=== PATIENT | male | born 1950 | race Caucasian/White ===

== ENCOUNTER 2024-04-14 11:24 | Inpatient (IN) ==
--- NOTE | 2024-04-14 12:33 | Emergency Department Note ---
Impression & Plan Metastatic cancer to brain, Weakness ED Provider Note CHIEF COMPLAINT: Weakness HISTORY OF PRESENTING ILLNESS: Patient is a pleasant 74-year-old male who arrives to the emergency department for evaluation of increased weakness in the bilateral legs, right worse than left. He also reports weakness in the right arm. He reports he recently finished chemotherapy and radiation for stage IV lung cancer. He states he has an MRI scheduled April 24 for his lumbar spine, however since the appointment where he visited to have the MRI imaging scheduled, his weakness has progressed significantly. He reports no pain. He denies headache, visual disturbance, or other neurological deficit. He denies knowledge of an exact date or time when the symptoms began. He is able to answer all questions appropriately. REVIEW OF SYSTEMS: See HPI for pertinent positives and pertinent negatives. ALLERGIES: Oxycodone, betamethasone MEDICATIONS: See below PAST MEDICAL HISTORY: Small cell lung cancer, lumbar back pain, lumbosacral facet joint syndrome PHYSICAL EXAM: VITALS: Vitals are noted on the nurse's note and reviewed by myself. Vital signs stable. GENERAL: 74-year-old male, in no acute distress, nondiaphoretic, well-developed well-nourished. SKIN: The skin was without rashes, erythema, edema, or bruising. HEAD: Normocephalic atraumatic. EARS: External auditory canals clear, tympanic membranes pearly arboleda without erythema or effusion bilaterally. EYES: Pupils equal round and reactive to light and accommodation. Conjunctivae without injection, sclerae without icterus. Extraocular movements intact. No nystagmus present. NOSE: Patent, turbinates without inflammation or discharge. No sinus tenderness. MOUTH: Mucous membranes moist. No tonsillar hypertrophy. Pharynx without erythema or exudate. Uvula midline. Airway patent. Tongue does not deviate. NECK: Supple without nuchal rigidity. No lymphadenopathy. Cervical spine is nontender. HEART: Regular rate and rhythm without murmurs gallops or rubs. LUNGS: Clear to auscultation bilaterally without wheezes, rales or rhonchi. No retractions or accessory muscle use. ABDOMEN: Positive bowel sounds x 4. Soft, nontender, without masses or organomegaly. Alcala sign negative. No guarding or rebound tenderness. MUSCULOSKELETAL: Full range of motion all joints without pain. Diminished sensation, right arm, right leg to dull and sharp. Automotive Teacher strength 4/5, right arm, radial pulse intact. Dorsiflexion, plantarflexion strength 4/5, right foot. DP pulse intact. NEURO: Patient was alert and oriented to person place and time. No focal neurological deficits. DIFFERENTIAL DIAGNOSIS: Infection, dehydration, metabolic abnormality, hypo/hyperglycemia, electrolyte disturbance, anemia, hypoxia, cardiac sources, intracerebral event, toxicologic, neurologic, as well as other pathologies. HISTORY FROM INDEPENDENT HISTORIAN: at bedside, secondary historian. MEDICATIONS GIVEN: Lorazepam IV, dexamethasone IV 6 mg. MONITOR: Continuous media monitor: Order was placed for continuous media monitor. Patient was placed on the media monitor and continuous pulse ox. Patient was noted to be in normal sinus rhythm at an initial rate of 88 bpm per my interpretation. EKG: EKG was interpreted by myself as normal sinus rhythm at a rate of 78 bpm, with no ST elevation, depression, or ectopy. Previous for comparison from November 2023 shows no significant change. INTERPRETATION OF LABS: I interpreted the labs with full lab results as below in the lab section of this note. Pertinent lab results discussed in the MDM section below. INTERPRETATION OF IMAGING: Imaging studies were interpreted by myself and read by radiology as per the imaging section of this note. CONSULTATIONS: Dr. Travis from heme-onc, recommended admission with every 6 hour IV dexamethasone administration, and evaluation by Dr. Munoz, and Dr. Massey from radiation oncology. MDM SUMMARY: The patient is a 74-year-old male who arrives to the emergency department for evaluation of the above-stated complaint. A saline lock was established, stroke workup evaluation was performed including lab work, CT imaging of the brain, and CTA imaging of the brain and neck. Lab work shows leukopenia 3.47, with a stable anemia. PT/INR/PTT within normal limits. CMP shows elevated alkaline phosphatase at 144, with no other significant abnormalities. Troponin 3.2. CTA imaging of the brain shows no aneurysm or stenosis of the major intracranial or cervical arteries. CT imaging of the head shows an intracranial mass seen about the high left frontal parafalcine region associated with surrounding vasogenic edema consistent with metastasis. Additional more ill-defined rounded areas in the cerebellar hemispheres bilaterally are noted. I spoke with Dr. Travis from heme-onc who recommended MRI imaging with and without contrast, every 6 hour IV dexamethasone, and admission to the hospital for evaluation by Dr. Ajala, and radiation oncology in the morning. MRI imaging was obtained showing the high left frontal parafalcine as well as the bilateral cerebellar masses again demonstrating rim enhancement and reactive vasogenic edema compatible with metastasis. Additional scattered smaller rim-enhancing lesions throughout the supratentorial brain. Patient was provided initial dose of IV dexamethasone here in the emergency department. Case management was contacted regarding admission, and facilitated contact with Dr. Simmons [facility]. Dr. Simmons evaluated the patient, and agreed to accept the patient under his care. Please refer to his documentation for further patient workup and care. DIAGNOSIS: Intracranial mass, metastatic disease. The patient's case was discussed with Dr. Taveras, who agreed with my evaluation and treatment plan. The chart was completed utilizing [employer] voice recognition software. Grammatical errors, random word insertions, pronoun errors, and incomplete sentences are an occasional consequence of this system due to software limitations, ambient noise, and hardware issues. Any formal questions or concerns about the content, text, or information contained within the body of this dictation should be directly addressed to the provider for clarification. Past Med/Surg History Problem List (Updated 04/14/24 @ 19:03 by FRANCINE Treviño) Weakness (Acute) Metastatic cancer to brain (Acute) Lumbosacral facet joint syndrome Lumbar back pain Small cell lung cancer (Chronic 10/24/23) Penile anomaly Medical History Hypertension History of pneumonia 09/28/23 > rx'd inhalers, abx, prednisone Spinal stenosis Peripheral neuropathy Hyperlipidemia Diabetes mellitus Hx of colonic polyps Mass of right lung Surgical History History of cataract surgery Left eye Hx of colonoscopy with polypectomy History of tonsillectomy History of lumbar surgery (2018) L5-S1 Family History Mother , 101 Diabetes Natural with unknown cause Father , in his 80s Stroke Myocardial infarction Diabetes Brother No problems noted. Brother No problems noted. Brother Overdose Son No problems noted. Son No problems noted. 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 How many Children do You have: 2 Other Information That Helps Us Care for You: No Feels Safe at Home: Yes Safety Concerns: Feels Safe At This Time Diet: regular caffeine: Yes (1 cup/day) during the past year weight has: remained stable Assistive Devices: Glasses and Walker Allergies Allergies Allergy/AdvReac Type Severity Reaction Status Date / Time oxycodone AdvReac Intermediate Syncope Verified 04/14/24 16:37 betamethasone AdvReac Mild Lower Verified 04/14/24 16:37 extremity numbness/pain Home Meds Home Medications Medication Instructions Recorded Confirmed cholecalciferol (vitamin D3) 125 125 mcg PO .weekly 10/04/23 04/14/24 mcg (5,000 unit) capsule sitagliptin phosphate 100 mg 100 mg PO QAM 10/04/23 04/14/24 tablet (Januvia) ascorbate calcium (vitamin C) 500 500 mg PO QAM 10/10/23 04/14/24 mg tablet gabapentin 600 mg tablet 1,200 mg PO HS 10/10/23 04/14/24 gabapentin 600 mg tablet 600 mg PO QAM 10/10/23 04/14/24 empagliflozin 10 mg tablet 10 mg PO .MWF 01/30/24 04/14/24 (Jardiance) lisinopril 5 mg tablet 5 mg PO QAM 04/02/24 04/14/24 benzonatate 100 mg capsule 100 mg PO TID PRN Cough 04/14/24 04/14/24 glipizide 5 mg tablet, extended 5 mg PO QAM 04/14/24 04/14/24 release 24 hr Previous Rx's Medication Instructions Recorded lorazepam 1 mg tablet 1 mg PO DAILY PRN anxiety #2 tabs 04/02/24 Results & Data (ED) Vital Signs Vital Signs - 24 hr 04/14/24 11:37 04/14/24 12:00 04/14/24 13:00 Temperature 36.3 C L Temperature Source Temporal Artery Scan Pulse Rate 108 H Pulse Rate [Finger] 88 77 Respiratory Rate 18 17 17 Respiratory Effort / Characteristics Non-Labored Spontaneous Non-Labored Spontaneous Non-Labored Spontaneous Respiratory Depth Normal Normal Normal Respiratory Pattern Regular Regular Regular Blood Pressure 118/76 Blood Pressure [Right Arm] 125/76 122/64 Blood Pressure Mean 90 Blood Pressure Mean [Right Arm] 92 83 Pulse Oximetry 97 96 95 Oxygen Delivery Method Room Air Room Air Room Air Sepsis Recent Fever Within 48 Hours No Sepsis New/Unexplained Change in Mental Status N/A Sepsis Action Taken by Nursing No Action Required Home Medications Current Medication List: was personally reviewed by me Laboratory Data Attestation: I reviewed the patient's lab results. 04/14/24 12:48 04/14/24 12:48 Lab Results 04/14/24 04/14/24 Range/Units 12:48 14:41 WBC 3.47 L (4.8-10.8) K/ul RBC 4.27 L (4.70-6.10) M/uL Hgb 12.5 L (14.0-18.0) g/dl Hct 37.5 L (42.0-52.0) % MCV 87.8 (80.0-100.0) fL MCH 29.3 (25.0-34.0) pg MCHC 33.3 (32.0-36.0) g/dL RDW Std Deviation 47.9 H (36.4-46.3) fL RDW Coeff of Angela 14.9 H (11.5-14.5) % Plt Count 87 L (130-400) K/uL MPV 11.7 (9.4-12.4) fL Immature Gran % (Auto) 1.2 % Neut % (Auto) 65.1 % Lymph % (Auto) 13.3 % Bacon % (Auto) 19.0 % Eos % (Auto) 1.4 % Baso % (Auto) 0.0 % Neut # (Auto) 2.26 (1.40-6.50) K/uL Lymph # (Auto) 0.46 L (1.20-3.40) K/uL Bacon # (Auto) 0.66 H (0.11-0.59) K/uL Eos # (Auto) 0.05 (0.00-0.50) K/uL Baso # (Auto) 0.00 (0.00-0.20) K/uL Immature Gran # (Auto) 0.04 (0.01-0.20) K/uL PT Cancelled 10.7 INR Cancelled 1.0 APTT Cancelled 23 PTT Ratio Cancelled 0.9 Sodium 137 (136-145) mmol/L Potassium 4.0 (3.5-5.1) mmol/L Chloride 104 (98-107) mmol/L Carbon Dioxide 27 (21-32) mmol/L Anion Gap 6 (3-11) BUN 15 (6-23) mg/dl Creatinine 0.72 (0.6-1.4) mg/dl Est Cr Clr Drug Dosing 100.6 ml/min eGFR 97.07 BUN/Creatinine Ratio 20.8 H (10-20) Glucose 138 H (70-99(Fasting)) mg/dl Calcium 9.7 (8.6-10.3) mg/dl Magnesium 1.8 (1.7-2.4) mg/dl Total Bilirubin 0.5 (0.2-1.0) mg/dl AST 18 (13-39) U/L ALT 21 (7-52) U/L Alkaline Phosphatase 144 H (34-104) U/L Troponin I High Sens 3.2 (0-20) pg/ml Total Protein 7.0 (6.0-8.3) gm/dl Albumin 4.3 (3.4-5.0) gm/dl Globulin 2.7 (2.5-4.0) gm/dl Albumin/Globulin Ratio 1.6 (0.9-2) Administered Medications Insulin Aspart (Insulin Aspart Per Unit Charge) 0 units SC ACHS KAMLESH Stop: 05/14/24 17:59 Last Admin: 04/14/24 18:38 Dose: Not Given Documented By: MK Discontinued Medications Dexamethasone Sodium Phosphate (DexamethasonePf 10 Mg/Ml Vial) 6 mg IV NOW ONE Stop: 04/14/24 14:23 Last Admin: 04/14/24 14:43 Dose: 6 mg Documented By: KLS Gadobutrol (Gadobutrol 10ml Vial) 7.5 ml IV ONCE ONE Stop: 04/14/24 16:07 Last Admin: 04/14/24 16:06 Dose: 7.5 ml Documented By: WAI Ioversol (Optiray 320 125ml) 115 ml IV ONCE ONE Stop: 04/14/24 14:09 Last Admin: 04/14/24 14:10 Dose: 115 ml Documented By: LENIN Lorazepam (Lorazepam 1 Mg/1 Ml Syr Ed Inj Use) 0.25 mg IV ONE STA Stop: 04/14/24 13:33 Last Admin: 04/14/24 13:41 Dose: 0.25 mg Documented By: JORDYN Lorazepam (Lorazepam 2 Mg/1 Ml Vial) 0.5 mg IV NOW STA Stop: 04/14/24 15:04 Last Admin: 04/14/24 16:09 Dose: Not Given Documented By: Lorazepam (Lorazepam 1 Mg/1 Ml Syr Ed Inj Use) 1 mg IV ONE STA Stop: 04/14/24 15:38 Last Admin: 04/14/24 15:43 Dose: 1 mg Documented By: Imaging Data Attestation: I personally reviewed and interpreted this imaging study as follows: Radiologist's Impression: Head CT 04/14/24 12:[address] without contrast CT angiogram of the neck CT angiogram of the brain with contrast Provided History: Neuro deficit. Lung cancer Comparison: MRI from 01/20/2024 Technique: HEAD CT: Using multidetector thin collimation helical acquisition technique, axial, coronal and sagittal CT images from the skull base to the vertex were obtained without intravenous contrast. HEAD and NECK CTA: During rapid bolus intravenous injection of nonionic contrast material, axial images were obtained using thin collimation multidetector helical technique from the base of the neck through the of vertex of the head. This CT angiogram data was reconstructed at thin intervals with mild overlap. 3D reconstructions were obtained. The axial source images, multiplanar reformations, 3D reconstructions in both maximum intensity projection display and volume rendered models were reviewed. Dose reduction techniques were achieved by using automatic exposure control and/or adjustment of mA and/or kV according to patient size and/or use of iterative reconstruction technique. Findings: Head CT: There is a new, rounded high density mass that appears based on the falx and in the high left frontal lobe measuring 2.2 x 2.0 cm, associated surrounding vasogenic edema. There is subtle rounded areas bilaterally in the cerebellar hemispheres, as seen on series 8 image 15, measuring 1.9 cm, and in the left cerebellar hemisphere on image 17 measuring 1.1 cm. There is no intracranial hemorrhage, mass effect, or midline shift. Arboleda/white matter differentiation in both cerebral hemispheres is preserved. Ventricles are proportionate to the cerebral sulci. Head CTA demonstrates no aneurysm or stenosis of the major intracranial arteries. Neck CTA demonstrates no stenosis of the major cervical arteries. Prominent calcifications at the carotid bulbs and proximal ICA bilaterally without hemodynamically significant stenosis appreciated. The origins of the great vessels from the aortic arch are patent. The normal distal right internal carotid artery measures 5 mm. The normal distal left internal carotid artery measures 5 mm. No mass is noted within the visualized portions of the cervical soft tissues or lung apices. Impression: 1. Head CTA demonstrates no aneurysm or stenosis of the major intracranial arteries, 2. Neck CTA demonstrates no stenosis of the major cervical arteries. 3. Intracranial mass seen about the high left frontal parafalcine region, associated with surrounding vasogenic edema, consistent with metastasis. There are also more ill-defined rounded areas in the cerebellar hemispheres bilaterally suspicious for metastatic disease. Findings may be further evaluated with MRI. The study was analyzed using artificial intelligence software for large vessel occlusion detection. Electronically signed by Markell Silverio 04-14-2024 2:25 PM Head CTA 04/14/24 12:[address] without contrast CT angiogram of the neck CT angiogram of the brain with contrast Provided History: Neuro deficit. Lung cancer Comparison: MRI from 01/20/2024 Technique: HEAD CT: Using multidetector thin collimation helical acquisition technique, axial, coronal and sagittal CT images from the skull base to the vertex were obtained without intravenous contrast. HEAD and NECK CTA: During rapid bolus intravenous injection of nonionic contrast material, axial images were obtained using thin collimation multidetector helical technique from the base of the neck through the of vertex of the head. This CT angiogram data was reconstructed at thin intervals with mild overlap. 3D reconstructions were obtained. The axial source images, multiplanar reformations, 3D reconstructions in both maximum intensity projection display and volume rendered models were reviewed. Dose reduction techniques were achieved by using automatic exposure control and/or adjustment of mA and/or kV according to patient size and/or use of iterative reconstruction technique. Findings: Head CT: There is a new, rounded high density mass that appears based on the falx and in the high left frontal lobe measuring 2.2 x 2.0 cm, associated surrounding vasogenic edema. There is subtle rounded areas bilaterally in the cerebellar hemispheres, as seen on series 8 image 15, measuring 1.9 cm, and in the left cerebellar hemisphere on image 17 measuring 1.1 cm. There is no intracranial hemorrhage, mass effect, or midline shift. Arboleda/white matter differentiation in both cerebral hemispheres is preserved. Ventricles are proportionate to the cerebral sulci. Head CTA demonstrates no aneurysm or stenosis of the major intracranial arteries. Neck CTA demonstrates no stenosis of the major cervical arteries. Prominent calcifications at the carotid bulbs and proximal ICA bilaterally without hemodynamically significant stenosis appreciated. The origins of the great vessels from the aortic arch are patent. The normal distal right internal carotid artery measures 5 mm. The normal distal left internal carotid artery measures 5 mm. No mass is noted within the visualized portions of the cervical soft tissues or lung apices. Impression: 1. Head CTA demonstrates no aneurysm or stenosis of the major intracranial arteries, 2. Neck CTA demonstrates no stenosis of the major cervical arteries. 3. Intracranial mass seen about the high left frontal parafalcine region, associated with surrounding vasogenic edema, consistent with metastasis. There are also more ill-defined rounded areas in the cerebellar hemispheres bilaterally suspicious for metastatic disease. Findings may be further evaluated with MRI. The study was analyzed using artificial intelligence software for large vessel occlusion detection. Electronically signed by Markell Silverio 04-14-2024 2:25 PM Neck CTA 04/14/24 12:[address] without contrast CT angiogram of the neck CT angiogram of the brain with contrast Provided History: Neuro deficit. Lung cancer Comparison: MRI from 01/20/2024 Technique: HEAD CT: Using multidetector thin collimation helical acquisition technique, axial, coronal and sagittal CT images from the skull base to the vertex were obtained without intravenous contrast. HEAD and NECK CTA: During rapid bolus intravenous injection of nonionic contrast material, axial images were obtained using thin collimation multidetector helical technique from the base of the neck through the of vertex of the head. This CT angiogram data was reconstructed at thin intervals with mild overlap. 3D reconstructions were obtained. The axial source images, multiplanar reformations, 3D reconstructions in both maximum intensity projection display and volume rendered models were reviewed. Dose reduction techniques were achieved by using automatic exposure control and/or adjustment of mA and/or kV according to patient size and/or use of iterative reconstruction technique. Findings: Head CT: There is a new, rounded high density mass that appears based on the falx and in the high left frontal lobe measuring 2.2 x 2.0 cm, associated surrounding vasogenic edema. There is subtle rounded areas bilaterally in the cerebellar hemispheres, as seen on series 8 image 15, measuring 1.9 cm, and in the left cerebellar hemisphere on image 17 measuring 1.1 cm. There is no intracranial hemorrhage, mass effect, or midline shift. Arboleda/white matter differentiation in both cerebral hemispheres is preserved. Ventricles are proportionate to the cerebral sulci. Head CTA demonstrates no aneurysm or stenosis of the major intracranial arteries. Neck CTA demonstrates no stenosis of the major cervical arteries. Prominent calcifications at the carotid bulbs and proximal ICA bilaterally without hemodynamically significant stenosis appreciated. The origins of the great vessels from the aortic arch are patent. The normal distal right internal carotid artery measures 5 mm. The normal distal left internal carotid artery measures 5 mm. No mass is noted within the visualized portions of the cervical soft tissues or lung apices. Impression: 1. Head CTA demonstrates no aneurysm or stenosis of the major intracranial arteries, 2. Neck CTA demonstrates no stenosis of the major cervical arteries. 3. Intracranial mass seen about the high left frontal parafalcine region, associated with surrounding vasogenic edema, consistent with metastasis. There are also more ill-defined rounded areas in the cerebellar hemispheres bilaterally suspicious for metastatic disease. Findings may be further evaluated with MRI. The study was analyzed using artificial intelligence software for large vessel occlusion detection. Electronically signed by Markell Silverio 04-14-2024 2:25 PM Brain MRI 04/14/24 14:35 MRI of the brain performed with and without IV contrast History: Intracranial mass Comparison: Same-day CT Technique: Multiplanar T1 weighted, axial T2/FLAIR, and susceptibility images were obtained without intravenous contrast. Following intravenous gadolinium based contrast administration, axial T2 weighted, diffusion, and T1-weighted images were obtained. Findings: No evidence for intracranial mass lesion, mass-effect, midline shift, or abnormal extra-axial fluid collection. Redemonstrated is of the high left frontal parafalcine mass, that measures approximately 2.2 cm in diameter, demonstrating rim enhancement and surrounding vasogenic edema. The bilateral cerebellar lesions as described on CT, are also seen with thin rim enhancement, on the right measuring up to 2.3 cm, and the left measuring 1.1 cm, with surrounding vasogenic edema. Throughout the remainder of the supratentorial brain, there are additional, smaller lesions which were not well-seen on head CT. There are an additional, approximately 7 smaller lesions throughout the supratentorial brain, including the left temporal lobe measuring 14 mm, the left basal ganglia measuring 9 mm, in the high right parietal region measuring 8 mm. The orbits are grossly unremarkable. There is moderate cerebral atrophy. No abnormally reduced diffusion or evidence for acute infarct. Normal intravascular flow voids. Impression: The high left frontal parafalcine, as well as the bilateral cerebellar masses, are again seen, demonstrating rim enhancement and reactive vasogenic edema, compatible with metastasis. There are additional, scattered smaller rim-enhancing lesions throughout the supratentorial brain, as above. Electronically signed by Markell Silverio 04-14-2024 4:27 PM Discharge Plan Visit Data Chief Complaint: Back Injury/Pain Stated Complaint: BACK, BOTH LEGS AND RIGHT ARM GOING NUMB ED Provider: Nacho Taveras ED Midlevel Provider: Chela Blue Discharge Problem: Metastatic cancer to brain, Weakness Patient Disposition: Admitted As Inpatient Discharge Instructions Interventions: ED Discharge Assessment Last Done: 04/14/24 17:13
[2024-04-14 13:09] LABS: Eosinophils # (auto) 0.05 K/uL (0.00-0.50); Eosinophils % (auto) 1.4 %; Hematocrit (blood only) 37.5 % (42.0-52.0); Hemoglobin 12.5 g/dl (14.0-18.0); Immature Granulocytes # (auto) 0.04 K/uL (0.01-0.20); Immature Granulocytes % (auto) 1.2 %; Lymphocytes # (auto) 0.46 K/uL (1.20-3.40); Lymphocytes % (auto) 13.3 %; Mean Corpuscular Hemoglobin 29.3 pg (25.0-34.0); Mean Corpuscular Hgb Conc 33.3 g/dL (32.0-36.0); Mean Corpuscular Volume 87.8 fL (80.0-100.0); Mean Platelet Volume 11.7 fL (9.4-12.4); Monocytes # (auto) 0.66 K/uL (0.11-0.59); Neutrophils # (auto) 2.26 K/uL (1.40-6.50); Neutrophils % (auto) 65.1 %; Platelet Count 87 K/uL (130-400); RDW Coefficient of Variation 14.9 % (11.5-14.5); RDW Standard Deviation 47.9 fL (36.4-46.3); Red Blood Count 4.27 M/uL (4.70-6.10); White Blood Count 3.47 K/ul (4.8-10.8)
[2024-04-14 13:23] LABS: Albumin Globulin Ratio 1.6 (0.9-2); Albumin Level 4.3 gm/dl (3.4-5.0); BUN Creatinine Ratio 20.8 (10-20); Bilirubin,Total 0.5 mg/dl (0.2-1.0); Calcium 9.7 mg/dl (8.6-10.3); Creatinine Clr Calc Pharmacy 100.6 ml/min; Globulin 2.7 gm/dl (2.5-4.0); Magnesium 1.8 mg/dl (1.7-2.4)
[2024-04-14 13:30] LABS: Troponin I High Sensitivity 3.2 pg/ml (0-20)
[2024-04-14] MEDS: LORazepam 1 MG/1 ML SYR ED Inj Use IV STA ×2 (13:41→15:43)
[2024-04-14] MEDS: OPTIRAY 320 125ml IV ONE (14:10)
--- NOTE | 2024-04-14 14:25 | CT Scan Report ---
Head CT without contrast CT angiogram of the neck CT angiogram of the brain with contrast Provided History: Neuro deficit. Lung cancer Comparison: MRI from 01/20/2024 Technique: HEAD CT: Using multidetector thin collimation helical acquisition technique, axial, coronal and sagittal CT images from the skull base to the vertex were obtained without intravenous contrast. HEAD and NECK CTA: During rapid bolus intravenous injection of nonionic contrast material, axial images were obtained using thin collimation multidetector helical technique from the base of the neck through the of vertex of the head. This CT angiogram data was reconstructed at thin intervals with mild overlap. 3D reconstructions were obtained. The axial source images, multiplanar reformations, 3D reconstructions in both maximum intensity projection display and volume rendered models were reviewed. Dose reduction techniques were achieved by using automatic exposure control and/or adjustment of mA and/or kV according to patient size and/or use of iterative reconstruction technique. Findings: Head CT: There is a new, rounded high density mass that appears based on the falx and in the high left frontal lobe measuring 2.2 x 2.0 cm, associated surrounding vasogenic edema. There is subtle rounded areas bilaterally in the cerebellar hemispheres, as seen on series 8 image 15, measuring 1.9 cm, and in the left cerebellar hemisphere on image 17 measuring 1.1 cm. There is no intracranial hemorrhage, mass effect, or midline shift. Arboleda/white matter differentiation in both cerebral hemispheres is preserved. Ventricles are proportionate to the cerebral sulci. Head CTA demonstrates no aneurysm or stenosis of the major intracranial arteries. Neck CTA demonstrates no stenosis of the major cervical arteries. Prominent calcifications at the carotid bulbs and proximal ICA bilaterally without hemodynamically significant stenosis appreciated. The origins of the great vessels from the aortic arch are patent. The normal distal right internal carotid artery measures 5 mm. The normal distal left internal carotid artery measures 5 mm. No mass is noted within the visualized portions of the cervical soft tissues or lung apices. Impression: 1. Head CTA demonstrates no aneurysm or stenosis of the major intracranial arteries, 2. Neck CTA demonstrates no stenosis of the major cervical arteries. 3. Intracranial mass seen about the high left frontal parafalcine region, associated with surrounding vasogenic edema, consistent with metastasis. There are also more ill-defined rounded areas in the cerebellar hemispheres bilaterally suspicious for metastatic disease. Findings may be further evaluated with MRI. The study was analyzed using artificial intelligence software for large vessel occlusion detection. Electronically signed by Markell Silverio 04-14-2024 2:25 PM
[2024-04-14] MEDS: dexAMETHasone**PF** 10 MG/ML VIAL IV ONE (14:43)
[2024-04-14 15:11] LABS: Partial Thromboplastin Ratio 0.9; Partial Thromboplastin Time 23 Seconds (21-31); Prothrombin Time 10.7 Seconds (9.0-12.0)
--- NOTE | 2024-04-14 15:37 | History & Physical Report ---
Date of Service April 14, 2024 Assessment & Plan (1) Small cell lung cancer: (2) Metastatic cancer to brain: Plan This is a 74 year old male with past medical history of small cell lung cancer, back pain who presented to the ED on 04/14 for weakness. #SCLC w/ mets to brain Recently completed chemotherapy/radiation on 03/04/2024. CBC w/ pancytopenia, appears chronic, secondary to cancer. CMP stable; PT/INR stable. Head CTA/Neck CTA negative for stenosis Head CT: intracranial mass seen about high left frontal parafalcine region, associated w/ surrounding vasogenic edema, consistent with metastasis. Also ill defined rounded areas in cerebellar hemispheres b/l suspcious for metastatic disease. Rec MRI Brain MRI pending Consider MRI of spine, defer to oncology at this time. Oncology and radiation oncology consulted, appreciate recommendations Dexamethasone 6mg IV q 6 hours per oncology Continue home inhalers PT/OT consulted appreciate recommendations. #Type 2 Diabetes On Jardiance, Glipizide, and Januvia outpatient - hold while inpatient A1c 2/7 - 6.8% Switch to sliding scale coverage while inpatient, adjust as necessary Continue Gabapentin for neuropathy Chronic conditions: HTN: Lisinopril Mental Health: Lorazepam prn Code status: DNR/DNI DVT prophylaxis: chemical held in setting of thrombocytopenia. SCD's Case discussed w/ Dr. Simmons and Dr. Travis at time of admission History of Present Illness Primary Care Provider: Adonis Amaya This is a 74 year old male with past medical history of small cell lung cancer, back pain who presented to the ED on 04/14 for weakness. Patient seen and examined w/ at bedside. Patient reports increased weakness of his b/l legs, R>L and right arm weakness. This has been ongoing for a few weeks but has gotten recently worse. He was supposed to get an MRI of his brain and spine outpatient in the upcoming week. He denies any abdominal pain. Denies any changes in speech, vision, hearing. Denies chest pain, shortness of breath, or GI complaints. He denies any headaches. He recently completed treatment for stage IV lung cancer outpatient. While in the ED, patient underwent a head neck CT/CTA that was revealing for an intracranial mass w/ vasogenic edema. Brain MRI is currently pending. Oncology was contacted by the ED in which Dr. Travis recommended IV Dexamethasone 6mg q6h. Oncology/radiation oncology consults are also pending. Code status discussed w/ patient and he confirmed he is a DNR/DNI. Allergies Allergy/AdvReac Type Severity Reaction Status Date / Time oxycodone AdvReac Intermediate Syncope Verified 04/14/24 16:37 betamethasone AdvReac Mild Lower Verified 04/14/24 16:37 extremity numbness/pain Home Medications Medication Instructions Recorded Confirmed Type cholecalciferol (vitamin D3) 125 125 mcg PO .weekly 10/04/23 04/14/24 History mcg (5,000 unit) capsule sitagliptin phosphate 100 mg 100 mg PO QAM 10/04/23 04/14/24 History tablet (Januvia) ascorbate calcium (vitamin C) 500 500 mg PO QAM 10/10/23 04/14/24 History mg tablet gabapentin 600 mg tablet 1,200 mg PO HS 10/10/23 04/14/24 History gabapentin 600 mg tablet 600 mg PO QAM 10/10/23 04/14/24 History empagliflozin 10 mg tablet 10 mg PO .MWF 01/30/24 04/14/24 History (Jardiance) lisinopril 5 mg tablet 5 mg PO QAM 04/02/24 04/14/24 History lorazepam 1 mg tablet 1 mg PO DAILY PRN anxiety #2 tabs 04/02/24 04/14/24 Rx benzonatate 100 mg capsule 100 mg PO TID PRN Cough 04/14/24 04/14/24 History glipizide 5 mg tablet, extended 5 mg PO QAM 04/14/24 04/14/24 History release 24 hr dexamethasone 4 mg tablet 4 mg PO BID #20 tabs 04/15/24 Rx lorazepam 1 mg tablet 1 mg PO ONCE #30 tabs 04/15/24 Rx memantine 5 mg tablet 5 mg PO DAILY #70 tabs 04/15/24 Rx Past Med/Surg History Problem List (Updated 04/14/24 @ 19:03 by FRANCINE Treviño) Weakness (Acute) Metastatic cancer to brain (Acute) Lumbosacral facet joint syndrome Lumbar back pain Small cell lung cancer (Chronic 10/24/23) Penile anomaly Medical History Hypertension History of pneumonia 09/28/23 > rx'd inhalers, abx, prednisone Spinal stenosis Peripheral neuropathy Hyperlipidemia Diabetes mellitus Hx of colonic polyps Mass of right lung Surgical History History of cataract surgery Left eye Hx of colonoscopy with polypectomy History of tonsillectomy History of lumbar surgery (2018) L5-S1 Family History Mother , 101 Diabetes Natural with unknown cause Father , in his 80s Stroke Myocardial infarction Diabetes Brother No problems noted. Brother No problems noted. Brother Overdose Son No problems noted. Son No problems noted. 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 3/5 strength in right upper extremity, 5 /5 strength left upper extremity Psychiatric: A+Ox3, euthymic affect Results & Data Results & Data Vital Signs (Past 12 Hours) Vital Signs Temp Pulse Pulse Resp BP BP Pulse Ox 04/14/24 13:00 77 17 122/64 95 04/14/24 12:00 88 17 125/76 96 04/14/24 11:37 36.3 C L 108 H 18 118/76 97 O2 Del Method 04/14/24 13:00 Room Air 04/14/24 12:00 Room Air 04/14/24 11:37 Room Air Code Status & VTE Plan VTE Prophylaxis Plan VTE Prophylaxis will be ordered: Yes Supervising Physician Co-Signing Physician Notes I personally saw and examined the patient. I independently reviewed the labs, EKG, imaging, problem list, medication list, past medical history and family history. I verified all nelson points and agree with Vero Moses PA-C with the following exceptions and/or additions: 74-year-old male presents to the ER with ambulatory dysfunction. CT head unfortunately concerning for an intracranial mass. Patient with a history of metastatic small cell lung cancer. O/E HS RRR, no murmurs, Chest CTAB, Abdo SNT, decreased co-ordination of lower extremities with right lower extremity weakness A/P Metastatic small cell cancer with brain metastatic disease - patient was significantly ambulatory dysfunction therefore being admitted for PT OT evaluations, dexamethasone and radiation oncology consult PG Care Time/CCT Total # of Minutes Spent Total Time Spent with Patient: Total time spent is greater than 50% in coordination of care (as documented) at patient's floor/unit and/or counseling patient: Coding Level of Care Code 47939 INT INP/OBS CARE 3/75MIN Diagnoses Small cell carcinoma of lower lobe of right lung C34.90 Laterality: unspecified laterality Lung location: unspecified part of lung Metastatic cancer to brain C79.31 (1) Small cell lung cancer Laterality: unspecified laterality Lung location: unspecified part of lung Qualified Code(s): C34.90 - Malignant neoplasm of unspecified part of unspecified bronchus or lung
[2024-04-14] MEDS: GADOBUTROL 10ML VIAL IV ONE (16:06)
[2024-04-14] MEDS: LORazepam 2 MG/1 ML VIAL IV STA (16:09)
--- NOTE | 2024-04-14 16:27 | Magnetic Resonance Report ---
MRI of the brain performed with and without IV contrast History: Intracranial mass Comparison: Same-day CT Technique: Multiplanar T1 weighted, axial T2/FLAIR, and susceptibility images were obtained without intravenous contrast. Following intravenous gadolinium based contrast administration, axial T2 weighted, diffusion, and T1-weighted images were obtained. Findings: No evidence for intracranial mass lesion, mass-effect, midline shift, or abnormal extra-axial fluid collection. Redemonstrated is of the high left frontal parafalcine mass, that measures approximately 2.2 cm in diameter, demonstrating rim enhancement and surrounding vasogenic edema. The bilateral cerebellar lesions as described on CT, are also seen with thin rim enhancement, on the right measuring up to 2.3 cm, and the left measuring 1.1 cm, with surrounding vasogenic edema. Throughout the remainder of the supratentorial brain, there are additional, smaller lesions which were not well-seen on head CT. There are an additional, approximately 7 smaller lesions throughout the supratentorial brain, including the left temporal lobe measuring 14 mm, the left basal ganglia measuring 9 mm, in the high right parietal region measuring 8 mm. The orbits are grossly unremarkable. There is moderate cerebral atrophy. No abnormally reduced diffusion or evidence for acute infarct. Normal intravascular flow voids. Impression: The high left frontal parafalcine, as well as the bilateral cerebellar masses, are again seen, demonstrating rim enhancement and reactive vasogenic edema, compatible with metastasis. There are additional, scattered smaller rim-enhancing lesions throughout the supratentorial brain, as above. Electronically signed by Markell Silverio 04-14-2024 4:27 PM
[2024-04-14] MEDS: INSULIN ASPART PER UNIT CHARGE SC SCH (18:38)
[2024-04-14] MEDS ORDERED: dexAMETHasone**PF** 10 MG/ML VIAL IV SCH (20:30)
[2024-04-14] MEDS: dexAMETHasone 6 MG in SYRINGE 0 ML IV SCH (20:37)
[2024-04-14] MEDS: GABAPENTIN 600 MG TAB PO SCH (20:37)
[2024-04-14] MEDS ORDERED: PHARMACY GLYCEMIC MGMT CONSULT PRN (20:45)
[2024-04-14] MEDS ORDERED: CARBOHYDRATES FOR HYPOGLYCEMIA PO PRN (20:46)
[2024-04-14] MEDS ORDERED: GLUCOSE 40% GEL 15 GM TUBE PO PRN (20:46)
[2024-04-14] MEDS ORDERED: DEXTROSE 50% 50 ML SYRINGE IV PRN (20:46)
[2024-04-14] MEDS ORDERED: GLUCAGON FOR INJ 1 MG VIAL SQ PRN (20:46)
[2024-04-14] MEDS ORDERED: GLUCOSE 10 TAB/TUBE PO PRN (20:46)
[2024-04-14] MEDS ORDERED: EMPAGLIFLOZIN 10 MG TAB PO SCH (21:00)
[2024-04-14] MEDS: LANTUS PER UNIT CHARGE SC ONE (21:33)
[2024-04-14] MEDS: LORazepam 1 MG TAB PO PRN (21:35)
[2024-04-15] MEDS: INSULIN ASPART PER UNIT CHARGE SC SCH (00:12)
--- NOTE | 2024-04-15 08:22 | Oncology Consultation ---
Date of Consultation April 15, 2024 Assessment & Plan (1) Small cell lung cancer: (2) Metastatic cancer to brain: Plan -Agree with evaluation by radiation oncology to discuss whole brain radiation treatment -Can discharge home on dexamethasone 4 mg p.o. twice daily -Scheduled for PET/CT on 04/17/2024. If this shows disease progression, will refer to [facility] [place] for consideration of tarlatamab. History of Present Illness Reason for Consultation: Metastatic disease Attending Physician: Han Simmons MD History of Present Illness Pleasant 74-year-old gentleman with history of extensive stage small cell lung cancer for which he is s/p 4 cycles of chemoimmunotherapy treatment with carboplatin, etoposide and atezolizumab completed on 01/12/2024 followed by maintenance atezolizumab started on 02/07/2024 and consolidation RT to the chest completed on 03/08/2024. Presented to the ER with bilateral lower extremity weakness. CT head revealed intracranial mass seen around hide left frontal parafalcine region associated with vasogenic edema, ill-defined rounded areas in cerebellar hemispheres bilaterally suspicious for metastatic disease. Brain MRI on 04/14/2024 showed high left frontal parafalcine, as well a the bilateral cerebellar masses demonstrating rim enhancement and reactive vasogenic edema, compatible with metastasis, additional, scattered smaller rim-enhancing lesions throughout the supratentorial brain. He was started on high-dose steroids and he indicates that symptoms have improved ever since then. Of note, he had brain MRI around December, which was negative for metastasis and was scheduled for repeat brain MRI on 04/24/2024 prior to presentation Allergies Allergy/AdvReac Type Severity Reaction Status Date / Time oxycodone AdvReac Intermediate Syncope Verified 04/14/24 16:37 betamethasone AdvReac Mild Lower Verified 04/14/24 16:37 extremity numbness/pain Home Medications Medication Instructions Recorded Confirmed Type cholecalciferol (vitamin D3) 125 125 mcg PO .weekly 10/04/23 04/14/24 History mcg (5,000 unit) capsule sitagliptin phosphate 100 mg 100 mg PO QAM 10/04/23 04/14/24 History tablet (Januvia) ascorbate calcium (vitamin C) 500 500 mg PO QAM 10/10/23 04/14/24 History mg tablet gabapentin 600 mg tablet 1,200 mg PO HS 10/10/23 04/14/24 History gabapentin 600 mg tablet 600 mg PO QAM 10/10/23 04/14/24 History empagliflozin 10 mg tablet 10 mg PO .MWF 01/30/24 04/14/24 History (Jardiance) lisinopril 5 mg tablet 5 mg PO QAM 04/02/24 04/14/24 History lorazepam 1 mg tablet 1 mg PO DAILY PRN anxiety #2 tabs 04/02/24 04/14/24 Rx benzonatate 100 mg capsule 100 mg PO TID PRN Cough 04/14/24 04/14/24 History glipizide 5 mg tablet, extended 5 mg PO QAM 04/14/24 04/14/24 History release 24 hr dexamethasone 4 mg tablet 4 mg PO BID #20 tabs 04/15/24 Rx lorazepam 1 mg tablet 1 mg PO ONCE #30 tabs 04/15/24 Rx memantine 5 mg tablet 5 mg PO DAILY #70 tabs 04/15/24 Rx Patient History Medical History Hypertension History of pneumonia 09/28/23 > rx'd inhalers, abx, prednisone Spinal stenosis Peripheral neuropathy Hyperlipidemia Diabetes mellitus Hx of colonic polyps Mass of right lung Surgical History History of cataract surgery Left eye Hx of colonoscopy with polypectomy History of tonsillectomy History of lumbar surgery (2017) L5-S1 Family History Mother , 101 Diabetes Natural with unknown cause Father , in his 80s Stroke Myocardial infarction Diabetes Brother No problems noted. Brother No problems noted. Brother Overdose Son No problems noted. Son No problems noted. 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
[2024-04-15 08:33] VITALS: RESP 16
[2024-04-15] MEDS: lisinopril 5 MG TAB PO SCH (08:37)
[2024-04-15] MEDS: GABAPENTIN 600 MG TAB PO SCH (08:38)
[2024-04-15] MEDS: CHOLECALCIFEROL 125 MCG (5,000 UNITS) TAB PO SCH (08:38)
--- NOTE | 2024-04-15 08:41 | Radiation OncologyConsultation ---
Date of Consultation April 15, 2024 Assessment & Plan (1) Metastatic cancer to brain: Plan ATTENDING ADDENDUM Assessment: Mr. Toribio is a 74-year-old gentleman who presents with extensive stage small cell lung carcinoma. The patient recently received a course of con solidative chest therapy which completed in February 2024. The patient is on immunotherapy underneath the supervision of Dr. Munoz. The patient was recently admitted to the hospital and presented with metastatic disease to the brain. The patient has been placed on dexamethasone and his symptoms have improved. We have been consulted to discuss the role of radiation therapy. Recommendation: Hippocampal sparing whole brain radiation therapy. 10 fractions. Plan: 1. CT simulation for treatment planning for radiation therapy. 2. Plan to start radiation therapy in the outpatient setting. 3. Dexamethasone 4 mg p.o. twice daily. 4. Systemic therapy as per medical oncology. 5. Memantine protocol for whole brain radiation therapy. 6. Patient and family encouraged to call us with any further questions or concerns. Rationale/Explanation of Treatment: I explained the indications, alternatives, benefits, risks and side effects of external beam radiation therapy. I explain the most common side effects including but not limited to skin erythema, skin break down, hair loss, radiation necrosis, fatigue, short-term memory loss, decreased neurocognitive performance, cerebral edema, hearing loss, damage to cochlea structures, seizures, damage to vision, loss of sensory and or motor function. I explained the treatment planning process and what to expect before during and after treatment. I have explained to the patient that there is an increased risk of overlap from the previous course of radiation therapy and the current course of radiation therapy which can increase the risk of all acute and late side effects of radiation therapy. History of Present Illness Reason for Consultation: Brain metastasis Requesting Physician: Han Simmons MD Attending Physician: Han Simmons MD History of Present Illness [id number] history of smoking. Quit in 2007. 03/29/2023. Chest x-ray. Patient had developed a cough. Was seen by the primary care provider. 1. Findings of obstructive lung disease, unchanged. 2. Right middle lobe scarring, similar. 3. No congestion or lobar consolidation. 09/25/2023. Chest CT. this was obtained due to chest congestion. A pleural-based soft tissue attenuation lesion measuring 41.3 x 40.8 mm is present in the right lower lobe, classified as lung RADS category 4B indicating a high suspicion for malignancy. PET/CT for histopathologic correlation is recommended. A 12 x 11 mm smooth marginated nodule is noted in the right perihilar region. Recommendation for imaging or biopsy. Interstitial lung disease in bilateral lower lobes. Prominent mediastinal lymph nodes. Cardiomegaly with mild dilated ascending aorta. 10/10/2023. Pulmonary consultation (Dr. Fink). Patient has a significant history of smoking. Studies reviewed. Recommendation for PET/CT. 10/18/2023. Patient presented to the emergency room due to rib pain. Chest CTA revealed: 1. No evidence for pulmonary embolus. 2. Interval progression of the right hilar lymphadenopathy and multiple right lower lobe pleural-based masses. 3. Trace right pleural effusion which is likely malignant. 4. A new 9 mm subsolid nodule within the left lower lobe. This is indeterminate but could represent a small focus of inflammatory/infectious change. 5. Right-sided calcified pleural plaques. 10/18/2023. Patient hospitalized due to the chest pain. Pain is in the right lower rib area. He has a pain level of 7 out of 10. He has been tried on different medications. Tramadol which cause drowsiness. Hydrocodone currently is not working. A prescription for Dilaudid has been sent in. His stated that he has taken this previously and it did not work. 10/24/2023. Status post fiberoptic bronchoscopy, electromagnetic navigational bronchoscopy with biopsies. Endobronchial ultrasound and navigational bronchoscopy. Path report reveals: Right lower lobe pathology benign. Right middle lobe pathology benign. Lymph node, 10R, EBUS aspiration showed metastatic small cell carcinoma. Lymph node, station 7, EBUS aspiration negative for malignancy. Lung, right lower lobe, bronchial brushings. Atypical cells present, suspicious for malignancy. Right middle lobe, negative for malignancy. 10/27/2021. Brain MRI. No acute intracranial abnormality. 11/02/2023. PET/CT. 1. Hypermetabolic 5 cm pleural/subpleural mass of the right lower lobe is a suggestive of malignancy with probable subpleural extension of disease. 2. Mildly hypermetabolic pleural thickening throughout the right hemithorax with trace effusion which may also be malignant. 3. The previously noted right hilar lymph nodes/right perihilar nodules are also hypermetabolic and likely malignant. 4. The previously noted 9 mm groundglass nodule of the left lower lobe demonstrates only minimally increased tracer uptake above that of background lung parenchyma, likely an adenomatous lesion. Attention at follow-up recommended. 5. Numerous skeletal metastasis are noted on the PET images which are not visualized on the CT component of the study. 11/02/2023. Lung cancer conference. Referral to radiation oncology and medical oncology. 11/07/2023. Radiation oncology consultation. Pain in the right lower posterior rib area. He has a pain level of 7 out of 10. He has been tried on different medications. Tramadol which cause drowsiness. Hydrocodone currently is not working. A prescription for Dilaudid has been sent in. His stated that he has taken this previously and it did not work. He is not having any pain in his left shoulder or left hip. 11/07/2023. Medical oncology consultation. Dr. Munoz. 11/07/2023. Follow-up with pulmonary. Thaddeus Brennan PA-C. 11/08/2023. Cycle 1 day 1 carboplatin, etoposide and atezolizumab. 12/08/2023. CT of the abdomen pelvis. 1. Mild acute diverticulitis of the splenic flexure. 2. No bowel obstruction, abscess or pneumoperitoneum. 3. The probable osseous metastatic lesions described on the comparison PET images are not visualized by CT. No destructive bone lesion is identified on today's exam. 4. No lymphadenopathy 12/08/2023. CT of the chest. 1. Right-sided lymphadenopathy concerning for metastatic disease however appears decreased in conspicuity from prior exam. Right lower lobe pleural-based mass is also decreased from prior exam. Findings are compatible with treatment response. 2. No superimposed acute abnormalities. 12/20/2023. Medical oncology follow-up. Proceed with cycle 3-day 1 of carboplatin, etoposide and atezolizumab. Plan reevaluation by radiation oncology after he completes 4 cycles. Possible consolidation thoracic RT in future PCI if he has a good response. 01/10/2024. Medical oncology follow-up. He is doing well. Proceed with cycle 4-day 1. Plan for PET/CT. 01/17/2024. PET/CT. 1. Findings consistent with a significant partial treatment response since PET/CT of November 02, 2023. Significant decrease in size and FDG avidity of mediastinal and right hilar lymphadenopathy and the right lower lobe subpleural/ pleural masses and nodules. Minimal residual FDG uptake. 2. Near complete resolution of FDG avidity within the skeletal lesions. 3. Mild diffuse skeletal FDG uptake which is likely treatment related. This favors marrow reactivation. 01/18/2024. Fourth cycle of carboplatin, etoposide and atezolizumab. 01/20/2024. Brain MRI. 1. No parenchymal metastases. 2. Interval decrease in T1 marrow signal within the clivus and visualized portions of the upper cervical spine since MRI of October 28, 2023. This could reflect skeletal metastatic disease. However, treatment related change such as marrow reactivation could have a similar imaging appearance. 01/22/2024. Medical oncology follow-up. Review of PET/CT. Review of MRI. Referral to radiation oncology. Patient will start maintenance atezolizumab on 02/07/2024. 01/30/2024. Radiation oncology follow-up. Patient has completed his 4 cycles of carboplatin, etoposide and atezolizumab. He will now be starting maintenance atezolizumab. He is steadily recuperating. He did have significant fatigue. He had issues with constipation. On 1 occasion his counts were low he required 1 unit of packed red blood cells and 1 unit of platelets. He has had follow-up scanning as above. This is shown significant response to therapy. He returns today to begin the process of radiation therapy. He has concerns about claustrophobia. He does require lorazepam prior to CT scanning and MRIs. 02/07/2024. Maintenance atezolizumab. 03/04/2024. Status post completion of palliative radiation therapy to the right lung. He received 3000 cGy completed in 10 fractions. 04/14/2024. Hospital mission due to leg weakness and right arm weakness. Patient stated he has had progressive difficulty with function of the right arm and legs. There has been steady weakness. He denies any tremors or twitching. He denies headaches. He has had no nausea. He presented to the emergency room for evaluation. 04/14/2024. Head CT without contrast, CT angiogram of the neck, and CT angiogram of the brain with contrast. 1. Head CTA demonstrates no aneurysm or stenosis of the major intracranial arteries, 2. Neck CTA demonstrates no stenosis of the major cervical arteries. 3. Intracranial mass seen about the high left frontal parafalcine region, associated with surrounding vasogenic edema, consistent with metastasis. There are also more ill-defined rounded areas in the cerebellar hemispheres bilaterally suspicious for metastatic disease. Findings may be further evaluated with MRI. 04/14/2024. MRI of the brain. The high left frontal parafalcine, as well as the bilateral cerebellar masses, are again seen, demonstrating rim enhancement and reactive vasogenic edema, compatible with metastasis. There are additional, scattered smaller rim- enhancing lesions throughout the supratentorial brain, as above. 04/15/2024. Radiation oncology consultation (Floresita Marshall PA-C/Lakshmi Sanderson). Patient with history as above. Weakness of the legs and right arm. Emergency room evaluation has revealed metastatic disease to the brain. He had surrounding vasogenic edema. He was started on dexamethasone 6 mg IV every 6 hours. With this medication his symptoms have resolved. Due to these findings our office was consulted. Patient is concerned about CT simulation and mask. He is very claustrophobic. Typically he requires lorazepam 2 mg an hour prior to such studies. Allergies Allergy/AdvReac Type Severity Reaction Status Date / Time oxycodone AdvReac Intermediate Syncope Verified 04/14/24 16:37 betamethasone AdvReac Mild Lower Verified 04/14/24 16:37 extremity numbness/pain Home Medications Medication Instructions Recorded Confirmed Type cholecalciferol (vitamin D3) 125 125 mcg PO .weekly 10/04/23 04/14/24 History mcg (5,000 unit) capsule sitagliptin phosphate 100 mg 100 mg PO QAM 10/04/23 04/14/24 History tablet (Januvia) ascorbate calcium (vitamin C) 500 500 mg PO QAM 10/10/23 04/14/24 History mg tablet gabapentin 600 mg tablet 1,200 mg PO HS 10/10/23 04/14/24 History gabapentin 600 mg tablet 600 mg PO QAM 10/10/23 04/14/24 History empagliflozin 10 mg tablet 10 mg PO .MWF 01/30/24 04/14/24 History (Jardiance) lisinopril 5 mg tablet 5 mg PO QAM 04/02/24 04/14/24 History lorazepam 1 mg tablet 1 mg PO DAILY PRN anxiety #2 tabs 04/02/24 04/14/24 Rx benzonatate 100 mg capsule 100 mg PO TID PRN Cough 04/14/24 04/14/24 History glipizide 5 mg tablet, extended 5 mg PO QAM 04/14/24 04/14/24 History release 24 hr dexamethasone 4 mg tablet 4 mg PO BID #20 tabs 04/15/24 Rx lorazepam 1 mg tablet 1 mg PO ONCE #30 tabs 04/15/24 Rx memantine 5 mg tablet 5 mg PO DAILY #70 tabs 04/15/24 Rx Patient History Medical History Hypertension History of pneumonia 09/28/23 > rx'd inhalers, abx, prednisone Spinal stenosis Peripheral neuropathy Hyperlipidemia Diabetes mellitus Hx of colonic polyps Mass of right lung Surgical History History of cataract surgery Left eye Hx of colonoscopy with polypectomy History of tonsillectomy History of lumbar surgery (2017) L5-S1 Family History Mother , 101 Diabetes Natural with unknown cause Father , in his 80s Stroke Myocardial infarction Diabetes Brother No problems noted. Brother No problems noted. Brother Overdose Son No problems noted. Son No problems noted. 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 Stage [id number]. Bone metastasis. 04/14/2024. Brain metastasis. Treatment: 11/08/2023-01/18/2024. Systemic treatment with carboplatin, etoposide and atezolizumab x 4 cycles 02/07/2024. Maintenance atezolizumab. 03/04/2024. Status post completion of radiation therapy to the right lung. He received 3000 cGy utilizing volumetric modulated arc therapy. Treatment in 10 fractions. Review of Systems Review of Systems: 13 point review of systems is negative o ther than what is mentioned in the history of present illness. Physical Exam Constitutional: WD/WN, vitals as above Eyes: PERRL, conjunctivae normal, anicteric sclerae ENMT: Ears: no hearing impairment Neck: trachea midline, no thyromegaly Respiratory: normal respiratory effort, lungs clear to auscultation Auscultation: + diminished lung sounds Cardiovascular: RRR, no murmur, no edema Gastrointestinal (Abdomen): normal bowel sounds, soft, nontender, no hepatosplenomegaly Skin: no rashes, warm and dry Neurologic: PERRL, EOMI, accommodation nl, no face palsy, no dysarthria no focal motor deficits Speech / Cognition: normal speech Motor/Sensory: no tremor Gait: no ataxic gait Coordination: normal [id number] test and normal Romberg test Psychiatric: A+Ox3, euthymic affect Time Spent Midlevel I spent [15] minutes in preparation for this follow up evaluation including reviewing all the clinical records, reviewing laboratory studies, pathology reports and imaging results. I spent [25] minutes with direct face to face interaction with the patient and/or family including performing a physical exam and answering all questions. I spent [15] minutes documenting this patient's visit. Attending I spent 10 minutes in preparation for this follow up evaluation including reviewing all the clinical records, reviewing laboratory studies, pathology reports and imaging results. I spent 20 minutes with direct face to face interaction with the patient and/or family including performing a physical exam and answering all questions. I spent 10 minutes documenting this patient's visit. PG Care Time/CCT Total # of Minutes Spent Total Time Spent with Patient: Total time spent is greater than 50% in coordination of care (as documented) at patient's floor/unit and/or counseling patient: Coding [place] [address] IN/OBS CONSULT LVL 5,80M Patient Type Established History Problem Focused Exam Problem Focused Medical Decision Making Moderate Complexity Diagnoses Metastatic cancer to brain C79.31
[2024-04-15] MEDS ORDERED: NON-FORMULARY MEDICATION (Cholecalciferol (Vitamin D3) 125 mcg (5,000 unit) capsule) PO SCH (09:00)
--- NOTE | 2024-04-15 11:15 | Discharge Summary ---
Discharge Summary Date of Service April 15, 2024 Principal Dx & Hospital Course #1 = Principal Diagnosis (1) Small cell lung cancer: (2) Metastatic cancer to brain: Plan This is a 74 year old male with past medical history of small cell lung cancer, back pain who presented to the ED on 04/14 for weakness. Patient reports major improvement in symptoms overnight after starting IV steroids. Weakness secondary to brain mets. #SCLC w/ mets to brain Recently completed chemotherapy/radiation on 03/04/2024. CBC w/ pancytopenia, appears chronic, secondary to cancer. CMP stable; PT/INR stable. Head CTA/Neck CTA negative for stenosis Head CT: intracranial mass seen about high left frontal parafalcine region, associated w/ surrounding vasogenic edema, consistent with metastasis. Also ill defined rounded areas in cerebellar hemispheres b/l suspicious for metastatic disease. Rec MRI Brain MRI: high left frontal parafalcine as well as b/l cerebellar masses, demonstrating rim enhancement and reactive vasogenic edema, compatible w/ mets. additional scattered smaller rim-enhancing lesions throughout supratentorial brain. Radiation oncology consulted - recommending 10 radiation treatments. Oncology consulted, discussed w/ Dr. Munoz - recommend transition from dexamethasone 6mg IV q 6 hours to dexamethasone 4mg BID while receiving radiation. oncology will then taper him off steroids. PET scan moved up to 2pm on 04/17, office will call to confirm time w/ patient 04/16. - added to patient's discharge summary. Continue home inhalers PT/OT consulted --> recommending return home. #Type 2 Diabetes On Jardiance, Glipizide, and Januvia outpatient - resume outpatient. A1c 2/7 - 6.8% Patient hyperglycemic secondary to IV steroids, appears he has history of this happening in past Recommend strict glucose monitoring at home, per patient he has a home monitor close follow up with PCP, patient refusing insulin while on steroids. Continue Gabapentin for neuropathy Chronic conditions: HTN: Lisinopril Mental Health: Lorazepam prn Case discussed w/ Dr. Sanderson and Dr. Munoz 04/15. Patient discharged home following 1st radiation session. Updated at bedside 04/15. Admission HPI Per Admitting Provider This is a 74 year old male with past medical history of small cell lung cancer, back pain who presented to the ED on 04/14 for weakness. Patient seen and examined w/ at bedside. Patient reports increased weakness of his b/l legs, R>L and right arm weakness. This has been ongoing for a few weeks but has gotten recently worse. He was supposed to get an MRI of his brain and spine outpatient in the upcoming week. He denies any abdominal pain. Denies any changes in speech, vision, hearing. Denies chest pain, shortness of breath, or GI complaints. He denies any headaches. He recently completed treatment for stage IV lung cancer outpatient. While in the ED, patient underwent a head neck CT/CTA that was revealing for an intracranial mass w/ vasogenic edema. Brain MRI is currently pending. Oncology was contacted by the ED in which Dr. Travis recommended IV Dexamethasone 6mg q6h. Oncology/radiation oncology consults are also pending. Code status discussed w/ patient and he confirmed he is a DNR/DNI. Discharge Exam Constitutional WD/WN, vitals as above Eyes PERRL, conjunctivae normal, anicteric sclerae Respiratory breathing unlabored Cardiovascular well perfused Musculoskeletal moves all extremities Psychiatric A+Ox3, euthymic affect Discharge Plan Discharge Items Patient Disposition: Home - Self-Care Reason For Visit: WEAKNESS Discharge Diagnosis: Stage IV lung cancer w/ metastatic lesion to brain Activity: Resume your previous activity Non-emergency contact: Primary Care Provider and Oncologist Call non-emergency contact if: you have any medication questions and your symptoms worsen Follow-up/Referrals: Adonis Amaya [Primary Care Provider] - 04/16/24 2:30 pm Diet: Regular Addtl Attending Provider Instructions: Mr. Toribio, You were recently admitted to the hospital for lower extremity weakness. You underwent a brain CT scan and were found to have a metastatic lesion in your brain. This was then confirmed with an MRI. You were seen by radiation oncology and are to start radiation treatments. Please see recommendations below regarding your discharge. 1. Please take Dexamethasone 4mg twice daily for the next 10 days, follow up with oncology regarding further doses. 2. While on high dose steroids, you should use a glucose monitor and check your blood sugar closely. You may resume the remainder of your outpatient diabetic medications. Please follow up with your PCP very closely regarding your blood sugar. 3. Please follow up with radiation and oncology for continued care. 4. You may resume the remainder of your medications upon discharge. 5. Follow up with your PCP within a week for continued care regarding your Diabetes. 6. Per Dr. Munoz your PET scan has been moved up to 04/17 with a tentative time of 2pm. Someone will call you, tomorrow 04/16 to confirm. If you develop any worsening weakness, dizziness, chest pain, shortness of breath please report back to the ER for further care. Sincerely, Vero Moses PA-C Pending Studies at Discharge: No Stand-Alone Forms: My [facility], Smoking Cessation Medications and DC Order Prescriptions: New dexamethasone 4 mg tablet 4 mg PO BID Qty: 20 0RF Continued Jardiance 10 mg tablet 10 mg PO .MWF lisinopril 5 mg tablet 5 mg PO QAM lorazepam 1 mg tablet 1 mg PO DAILY PRN (Reason: anxiety) Qty: 2 0RF Rx Instructions: Take 2 tabs one hour before MRI lorazepam 1 mg tablet 1 mg PO ONCE Qty: 30 0RF Rx Instructions: Take three pill one hour prior to each radiation treatment. memantine 5 mg tablet 5 mg PO DAILY Qty: 70 0RF Rx Instructions: As directed. Instruction sheet given to the patient. Instruction sheet will be sent to the pharmacy. Januvia 100 mg tablet 100 mg PO QAM cholecalciferol (vitamin D3) 125 mcg (5,000 unit) capsule 125 mcg PO .weekly Rx Instructions: mondays gabapentin 600 mg tablet 600 mg PO QAM gabapentin 600 mg tablet 1,200 mg PO HS ascorbate calcium (vitamin C) 500 mg tablet 500 mg PO QAM glipizide 5 mg tablet extended release 24hr 5 mg PO QAM benzonatate 100 mg capsule 100 mg PO TID PRN (Reason: Cough) Discharge Orders: Discharge Order (Routine); Ordered 04/15/24 Ordered By: Vero Tovar/Other Patient Handouts: Cancer: Managing Fatigue Admission Data Admit Date/Time: 04/14/24 15:13 Attending Provider: Han Simmosn Admit Provider: Han Simmons Primary Care Provider: Adonis Amaya Other Providers: Caryl Munoz; Polo Sanderson Other Interventions: Discharge Summary Assessment (RN) Last Done: 04/15/24 14:44 Hospital Stay Data Consultations 04/14/24 14:35 Consult Oncology Stat 04/14/24 15:04 ED Decision to Admit Stat 04/14/24 19:02 Consult Radiation Oncology Routine Diagnostic Imagining Performed 04/14/24 12:34 CT angio head w con Stat CT angio neck with con Stat CT head/brain wo con Stat 04/14/24 14:35 MRI Brain [MR brain wo/w con] Stat Pending Results Patient Have Any Pending Studies at Discharge: No Discharge Instructions Given to Patient (Per Discharging Provider) Irvin Marcial were recently admitted to the hospital for lower extremity weakness. You underwent a brain CT scan and were found to have a metastatic lesion in your brain. This was then confirmed with an MRI. You were seen by radiation oncology and are to start radiation treatments. Please see recommendations below regarding your discharge. 1. Please take Dexamethasone 4mg twice daily for the next 10 days, follow up with oncology regarding further doses. 2. While on high dose steroids, you should use a glucose monitor and check your blood sugar closely. You may resume the remainder of your outpatient diabetic medications. Please follow up with your PCP very closely regarding your blood sugar. 3. Please follow up with radiation and oncology for continued care. 4. You may resume the remainder of your medications upon discharge. 5. Follow up with your PCP within a week for continued care regarding your Diabetes. 6. Per Dr. Munoz your PET scan has been moved up to 04/17 with a tentative time of 2pm. Someone will call you, tomorrow 04/16 to confirm. If you develop any worsening weakness, dizziness, chest pain, shortness of breath please report back to the ER for further care. Sincerely, Vero Moses PA-C Supervising Physician Co-Signing Physician Notes Patient was seen within the last 24 hours but not on day of discharge. He was keen to be discharged with ongoing follow-up with radiation oncology. We discussed he did not want insulin on discharge despite dexamethasone increasing his glucose. Agreed to check his blood sugars while on dexamethasone and adjust his outpatient regimen based on these. Total Time Total Time Spent Total Time Spent (In Minutes): 50 Total Time Includes: Examination of the Patient, Discharge Planning, Medication Reconciliation and Communication With Other Providers Coding Level of Care Code 40741 INP/OBS DISCH >30 MIN Diagnoses Small cell carcinoma of lower lobe of right lung C34.90 Laterality: unspecified laterality Lung location: unspecified part of lung Metastatic cancer to brain C79.31
[2024-04-15 12:08] VITALS: BP 138/68; PULSE 104; TEMP 97.7; O2SAT 97
[2024-04-15] MEDS: LORazepam 2 MG/1 ML VIAL IV SCH (12:38)
--- NOTE | 2024-04-15 14:31 | Pharmacy Report ---
Pharmacy Glycemic Short Note 2 - Date of Service April 15, 2024 - Glycemic Short BSG Results (Last 24 hours): 04/14/24 04/14/24 04/14/24 17:53 20:30 20:33 POC Glucose 168 H 319 H* 333 H* 04/15/24 04/15/24 04/15/24 00:00 03:02 07:31 POC Glucose 157 H 94 519 H* 04/15/24 04/15/24 04/15/24 07:33 07:39 11:28 POC Glucose 335 H* 304 H* 291 H OUTPATIENT ANTIDIABETIC REGIMEN: * empagliflozin 10mg po q MWF * glipizide 5mg po QAM * sitagliptin 100mg po QAM HbA1c: 6.8% on 03/29/24 ASSESSMENT: * 74 year old male who presented to the ED on 04/14 for weakness. Patient recently completed chemo/radiation on 03/04/24 for SCLC with mets to brain. Pharmacy was consulted for glycemic management while he is admitted * BSG on admit was 168mg/dL. Patient was started on dexamethasone 6mg iv q6 hours and BSG feliciano to 333mg/dL at bedtime. Lantus 20 units SQ x 1 was given last evening and he was started on a weight based bolus insulin regimen with a stress of 3. * Over night BSG checks were ordered. 0302 BSG was 94mg/dL and then fasting this morning was 335mg/dL. Loosened the CF some to prevent what was likely overcorrection seen over night and tightened the CR for additional prandial coverage. * Added a Lantus scale at HS (0, 10, or 20 units depending on BSG) and added overnight BSG checks for tonight as patient remains on Q6 hour dosing of dexamethasone. PLAN FOR INPATIENT GLYCEMIC CONTROL: * Hold outpatient oral diabetes medications * Basal insulin * Lantus 20 units SQ x 1 last night and then Lantus scale at HS ( if BSG < 140 hold, if BSG 140-180 give 10 units, if BSG > 180 give 20 units) * Bolus insulin * NovoLog per scale ACHS or Q6hrs while NPO * Goal Range: Low 110 mg/dL - High 140 mg/dL * Correction Factor: 25 mg/dL/unit * Nutritional / Prandial insulin per carb ratio of 1 unit per 6 grams CHO consumed
--- NOTE | 2024-04-15 15:24 | Electrocardiogram Report ---
Test Reason : Blood Pressure : */* mmHG Vent. Rate : 78 BPM Atrial Rate : 78 BPM P-R Int : 144 ms QRS Dur : 92 ms QT Int : 378 ms P-R-T Axes : 79 7 54 degrees QTcB Int : 430 ms Normal sinus rhythm Normal ECG When compared with ECG of 05-Dec-2023 18:57, No significant change was found Confirmed by Sim Alaniz ([id number]) on 04/15/2024 3:23:41 PM Referred By: Confirmed By: Sim Alaniz
[2024-04-15] MEDS ORDERED: LANTUS PER UNIT CHARGE SC SCH (21:00)
[2024-04-15] MEDS ORDERED: LANTUS PER UNIT CHARGE SC ONE (21:00)
[2024-04-16] MEDS ORDERED: INSULIN ASPART PER UNIT CHARGE SC SCH
== END 2024-04-15 15:13 | disposition home or self-care (01) | DRG 54 ==
LOC: ED 11:24 → 3E 15:13
DX: E11.42 Type 2 diabetes mellitus with diabetic polyneuropathy; Z79.84 Long term (current) use of oral hypoglycemic drugs; Z88.5 Allergy status to narcotic agent; G93.6 Cerebral edema; Z87.891 Personal history of nicotine dependence; I10 Essential (primary) hypertension; Z79.899 Other long term (current) drug therapy; Z66 Do not resuscitate; Z83.3 Family history of diabetes mellitus; C34.31 Malignant neoplasm of lower lobe, right bronchus or lung; Z88.8 Allergy status to other drugs, medicaments and biological substances; D61.818 Other pancytopenia; C79.31 Secondary malignant neoplasm of brain

== ENCOUNTER 2024-05-13 14:28 | Observation (INO) ==
[2024-05-13 14:59] LABS: Base Excess VBG 1.5 mEq/L; HCO3 VBG 26 mmol/L; Oxygen Saturation VBG 84.1 %; PCO2 VBG 39 mmHg (38-50); PO2 VBG 53 mmHg; pH VBG 7.43 (7.36-7.41)
--- NOTE | 2024-05-13 15:00 | XRay Report ---
XR chest 1V portable CLINICAL HISTORY: Dyspnea COMPARISON STUDY: 05/06/2024 FINDINGS: Heart size and pulmonary vasculature are normal. No effusion or consolidation. No pneumotho rax. IMPRESSION: No acute findings. ACT 112: Negative or not required by law. Electronically signed by: Kai Ybarra M.D. 05/13/2024 2:58 PM
[2024-05-13 15:32] LABS: Hematocrit (blood only) 40.4 % (42.0-52.0); Hemoglobin 13.2 g/dl (14.0-18.0); Mean Corpuscular Hemoglobin 28.1 pg (25.0-34.0); Mean Corpuscular Hgb Conc 32.7 g/dL (32.0-36.0); Mean Corpuscular Volume 86.1 fL (80.0-100.0); Mean Platelet Volume 12.5 fL (9.4-12.4); Platelet Count 99 K/uL (130-400); RDW Coefficient of Variation 17.4 % (11.5-14.5); RDW Standard Deviation 53.5 fL (36.4-46.3); Red Blood Count 4.69 M/uL (4.70-6.10); White Blood Count 9.98 K/ul (4.8-10.8)
--- NOTE | 2024-05-13 15:33 | Emergency Department Note ---
Impression & Plan Acute dyspnea, Thrombocytopenia ED Provider Note HISTORY OF PRESENT ILLNESS: Patient is a 74-year-old male presenting with shortness of breath. Patient reports this is his third visit in the last month for similar symptoms. He reports that his last visit he was diagnosed with pneumonia. He reports that he saw his oncologist and his antibiotic was changed and he was started on prednisone recently. He has had progressively worsening shortness of breath. He reports he is unable to lay flat or really do anything secondary to how short of breath he feels. He states that it feels like at times that "my airway is collapsing." Patient's oncologist referred the patient to the emergency department "to see a lab support technician and get a bronchoscopy to clear out my airway." Patient denies any fevers. Denies any significant cough. Denies any chest pain. He reports he just feels like he cannot catch his breath. Denies any DVT or PE history. He is not on any anticoagulation. ROS: as above PHYSICAL EXAM: Constitutional: Patient appears in no acute distress. HENT: Head: Normocephalic and atraumatic. Eyes: EOMI, PERRL Mouth/Throat: Mucous membranes moist. Neck: Trachea midline. Neck supple. Cardiovascular: RRR, No murmurs, rubs or gallops. Intact distal pulses. Pulmonary/Chest: No respiratory distress. Breath sounds clear and equal bilaterally. No wheezes or rales. Patient noted to have stinted breathing. Appears quite uncomfortable. Abdominal: Abdomen soft, no tenderness, rebound or guarding. Musculoskeletal: No edema, tenderness or deformity noted. Skin: Warm and dry. No rash, erythema, pallor or cyanosis Psychiatric: Appropriate mood and affect for situation. Neurological: Alert and keenly responsive. CN II-XII grossly intact, moving all extremities equally and fully. MDM: - Vitals signs stable - History obtained via patient. History as above. - Chronic conditions affecting care: small cell lung cancer; DM-2; HTN; HLD - Differential diagnoses include, but are not limited to: Congestive heart failure; acute coronary syndrome; COPD/asthma exacerbation; pulmonary edema; pulmonary embolism; pneumonia; pneumothorax; viral syndrome - Order placed for continuous cardiac monitoring. At this time, monitor showed rate of 90 bpm with normal sinus rhythm, per my interpretation. - External medical records reviewed. Oncology discharge summary dated 05/10/2024 was reviewed. Patient follows in the clinic for right lower lobe small cell carcinoma. He has known bone metastases. He completed brain radiation therapy on 05/06/2024. - EKG image interpreted by myself showed normal sinus rhythm. Rate 89 bpm. QT 3. No acute ischemic changes. - Laboratory workup interpreted by myself showed normal WBC; chronic anemia (Hgb 13.2); thrombocytopenia (plt 99); normal PT/INR; normal procalcitonin; hyponatremia (Na 133); hyperglycemia (glucose 297); normal troponin; normal BNP - Viral respiratory panel positive for rhinovirus/enterovirus infections. - VBG grossly normal - CXR image reviewed by myself is negative for pneumonia, per my interpretation. - Discussion was had with counter caser about patient's case and need for admission - Hospitalist consulted for admission - [facility] ASSESSMENT AND PLAN: Diagnosis: Acute dyspnea; thrombocytopenia Plan: admit Past Med/Surg History Problem List (Updated 05/13/24 @ 19:13 by Sveta Freed MD) Thrombocytopenia (Acute) Acute dyspnea (Acute) Acute hyperglycemia (Acute) SOB (shortness of breath) (Acute) Pneumonia (Acute) Type 2 diabetes mellitus Weakness (Acute) Metastatic cancer to brain (Acute) Lumbosacral facet joint syndrome Lumbar back pain Small cell lung cancer (Chronic 10/24/23) Penile anomaly Medical History Hypertension History of pneumonia 09/28/23 > rx'd inhalers, abx, prednisone Spinal stenosis Peripheral neuropathy Hyperlipidemia Diabetes mellitus Hx of colonic polyps Mass of right lung Surgical History History of cataract surgery Left eye Hx of colonoscopy with polypectomy History of tonsillectomy History of lumbar surgery (2018) L5-S1 Family History Mother , 101 Diabetes Natural with unknown cause Father , in his 80s Stroke Myocardial infarction Diabetes Brother No problems noted. Brother No problems noted. Brother Overdose Son No problems noted. Son No problems noted. 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 How many Children do You have: 2 Feels Safe at Home: Yes Diet: regular caffeine: Yes (1 cup/day) during the past year weight has: remained stable Assistive Devices: Walker Allergies Allergies Allergy/AdvReac Type Severity Reaction Status Date / Time oxycodone AdvReac Intermediate Syncope Verified 05/13/24 17:11 tramadol AdvReac Intermediate Dizziness Verified 05/13/24 17:11 betamethasone AdvReac Mild Lower Verified 05/13/24 17:11 extremity numbness/pain Home Meds Home Medications Medication Instructions Recorded Confirmed ascorbate calcium (vitamin C) 500 500 mg PO QAM 10/10/23 05/13/24 mg tablet gabapentin 600 mg tablet 1,200 mg PO HS 10/10/23 05/13/24 gabapentin 600 mg tablet 600 mg PO QAM 10/10/23 05/13/24 empagliflozin 10 mg tablet 10 mg PO 3XWK 01/30/24 05/13/24 (Jardiance) benzonatate 100 mg capsule 100 mg PO TID PRN Cough 04/14/24 05/13/24 ergocalciferol (vitamin D2) 1,250 50,000 unit PO Q7D 04/24/24 05/13/24 mcg (50,000 unit) capsule (Vitamin D2) duloxetine 20 mg capsule,delayed 20 mg PO DAILY 05/06/24 05/13/24 release levofloxacin 500 mg tablet 500 mg PO DAILY 05/13/24 05/13/24 lisinopril 2.5 mg tablet 2.5 mg PO QAM 05/13/24 05/13/24 methylprednisolone 4 mg tablets in See Rx Instructions .Route .COMPLEX 05/13/24 05/13/24 a dose pack (Medrol (Angel)) Previous Rx's Medication Instructions Recorded lorazepam 1 mg tablet 1 mg PO DAILY PRN anxiety #2 tabs 04/02/24 lorazepam 1 mg tablet 1 mg PO ONCE #30 tabs 04/15/24 memantine 5 mg tablet 5 mg PO DAILY #70 tabs 04/15/24 pen needle, diabetic 32 gauge x #50 ea 04/26/24" insulin aspart U-100 100 unit/mL 1 sliding scale dose subcut 04/29/24 (3 mL) subcutaneous pen (Novolog USEASDIRECTD #15 mL FlexPen U-100 Insulin aspart) pen needle, diabetic 32 gauge x #100 ea 04/29/24" albuterol sulfate 90 mcg/actuation 2 inh inhalation Q6H PRN shortness 05/06/24 aerosol inhaler of breath or wheezing #8.5 grams Results & Data (ED) Vital Signs Vital Signs - 24 hr 05/13/24 14:31 05/13/24 14:40 05/13/24 14:46 Temperature 36.6 C Temperature Source Temporal Artery Scan Pulse Rate 100 H 89 Pulse Rate [Apical] Pulse Rhythm [Apical] Pulse Strength [Apical] Respiratory Rate 20 Respiratory Effort / Characteristics Non-Labored Respiratory Depth Normal Respiratory Pattern Blood Pressure 138/75 Blood Pressure [Right Arm] Blood Pressure Mean 96 Blood Pressure Mean [Right Arm] Blood Pressure Position [Right Arm] Pulse Oximetry 96 98 Oxygen Delivery Method Room Air Room Air Oxygen Flow Rate 0 Sepsis Recent Fever Within 48 Hours No Sepsis New/Unexplained Change in Mental Status Yes Sepsis Action Taken by Nursing No Action Required 05/13/24 14:46 05/13/24 14:46 05/13/24 16:29 Temperature Temperature Source Pulse Rate 88 Pulse Rate [Apical] 88 80 Pulse Rhythm [Apical] Pulse Strength [Apical] Respiratory Rate 20 20 16 Respiratory Effort / Characteristics Non-Labored Spontaneous Non-Labored Spontaneous Respiratory Depth Respiratory Pattern Blood Pressure Blood Pressure [Right Arm] 147/80 H Blood Pressure Mean Blood Pressure Mean [Right Arm] 102 Blood Pressure Position [Right Arm] Pulse Oximetry 98 98 95 Oxygen Delivery Method Room Air Room Air Room Air Oxygen Flow Rate Sepsis Recent Fever Within 48 Hours Sepsis New/Unexplained Change in Mental Status Sepsis Action Taken by Nursing 05/13/24 18:00 Temperature Temperature Source Pulse Rate Pulse Rate [Apical] 83 Pulse Rhythm [Apical] Regular Pulse Strength [Apical] Normal Respiratory Rate 14 Respiratory Effort / Characteristics Non-Labored Respiratory Depth Normal Respiratory Pattern Regular Blood Pressure Blood Pressure [Right Arm] 147/80 H Blood Pressure Mean Blood Pressure Mean [Right Arm] 102 Blood Pressure Position [Right Arm] Lying Pulse Oximetry 94 Oxygen Delivery Method Room Air Oxygen Flow Rate Sepsis Recent Fever Within 48 Hours Sepsis New/Unexplained Change in Mental Status Sepsis Action Taken by Nursing Laboratory Data 05/13/24 14:48 05/13/24 14:48 Lab Results 05/13/24 05/13/24 05/13/24 Range/Units 14:44 14:48 16:14 WBC 9.98 (4.8-10.8) K/ul RBC 4.69 L (4.70-6.10) M/uL Hgb 13.2 L (14.0-18.0) g/dl Hct 40.4 L (42.0-52.0) % MCV 86.1 (80.0-100.0) fL MCH 28.1 (25.0-34.0) pg MCHC 32.7 (32.0-36.0) g/dL RDW Std Deviation 53.5 H (36.4-46.3) fL RDW Coeff of Angela 17.4 H (11.5-14.5) % Plt Count 99 L (130-400) K/uL MPV 12.5 H (9.4-12.4) fL Immature Gran % (Auto) 8.3 % Neut % (Auto) 74.6 % Lymph % (Auto) 3.0 % Garrett % (Auto) 13.6 % Eos % (Auto) 0.3 % Baso % (Auto) 0.2 % Neut # (Auto) 7.44 H (1.40-6.50) K/uL Lymph # (Auto) 0.30 L (1.20-3.40) K/uL Garrett # (Auto) 1.36 H (0.11-0.59) K/uL Eos # (Auto) 0.03 (0.00-0.50) K/uL Baso # (Auto) 0.02 (0.00-0.20) K/uL Immature Gran # (Auto) 0.83 H (0.01-0.20) K/uL PT 10.1 (9.0-12.0) Seconds INR 0.9 (0.9-1.1) VBG pH 7.43 H (7.36-7.41) VBG pCO2 39 (38-50) mmHg VBG pO2 53 mmHg VBG HCO3 26 mmol/L VBG O2 Saturation 84.1 % VBG Base Excess 1.5 mEq/L Sodium 133 L (136-145) mmol/L Potassium 4.9 (3.5-5.1) mmol/L Chloride 97 L (98-107) mmol/L Carbon Dioxide 28 (21-32) mmol/L Anion Gap 8 (3-11) BUN 26 H (6-23) mg/dl Creatinine 1.03 (0.6-1.4) mg/dl Est Cr Clr Drug Dosing 69.8 ml/min eGFR 77.18 BUN/Creatinine Ratio 25.2 H (10-20) Glucose 297 H (70-99(Fasting)) mg/dl Calcium 9.4 (8.6-10.3) mg/dl Magnesium 1.9 (1.7-2.4) mg/dl Total Bilirubin 0.8 (0.2-1.0) mg/dl AST 11 L (13-39) U/L ALT 16 (7-52) U/L Alkaline Phosphatase 69 (34-104) U/L Troponin I High Sens < 2.3 (0-20) pg/ml B-Natriuretic Peptide 25 (0-100) pg/ml Total Protein 6.3 (6.0-8.3) gm/dl Albumin 3.9 (3.4-5.0) gm/dl Globulin 2.4 L (2.5-4.0) gm/dl Albumin/Globulin Ratio 1.6 (0.9-2) Procalcitonin Cancelled 0.08 Adenovirus (PCR) Not Detected (NotDetected) B. pertussis DNA (PCR) Not Detected (NotDetected) B.parapertussis DNA PCR Not Detected (NotDetected) C. pneumoniae DNA (PCR) Not Detected (NotDetected) Coronavirus OC43 (PCR) Not Detected (NotDetected) Coronavirus HKU1 (PCR) Not Detected (NotDetected) Coronavirus 229E (PCR) Not Detected (NotDetected) SARS-CoV-2 (PCR) Not Detected (NotDetected) Coronavirus NL63 (PCR) Not Detected (NotDetected) Human Metapneumovir PCR Not Detected (NotDetected) Influenza Type A (PCR) Not Detected (NotDetected) Influenza Type B (PCR) Not Detected (NotDetected) M. pneumoniae (PCR) Not Detected (NotDetected) Parainfluenza 1 (PCR) Not Detected (NotDetected) Parainfluenza 2 (PCR) Not Detected (NotDetected) Parainfluenza 3 (PCR) Not Detected (NotDetected) Parainfluenza 4 (PCR) Not Detected (NotDetected) RSV (PCR) Not Detected (NotDetected) Entero/Rhino (PCR) DETECTED A (NotDetected) Imaging Data Radiologist's Impression: Chest X-Ray 05/13/24 14:35 XR chest 1V portable CLINICAL HISTORY: Dyspnea COMPARISON STUDY: 05/06/2024 FINDINGS: Heart size and pulmonary vasculature are normal. No effusion or consolidation. No pneumothorax. IMPRESSION: No acute findings. ACT 112: Negative or not required by law. Electronically signed by: Kai Ybarra M.D. 05/13/2024 2:58 PM Discharge Plan Visit Data Chief Complaint: Shortness of Breath/Dyspnea Stated Complaint: GASPING FOR AIR ED Provider: Sveta Freed Discharge Problem: Acute dyspnea, Thrombocytopenia Forms Stand Alone Forms: My [facility] [employer] Prescriptions Prescriptions: No Action Jardiance 10 mg tablet 10 mg PO 3XWK Rx Instructions: Mon/Wed/Fri lorazepam 1 mg tablet 1 mg PO DAILY PRN (Reason: anxiety) Qty: 2 0RF Rx Instructions: Take 2 tabs one hour before MRI lorazepam 1 mg tablet 1 mg PO ONCE Qty: 30 0RF Rx Instructions: Take three pill one hour prior to each radiation treatment. memantine 5 mg tablet 5 mg PO DAILY Qty: 70 0RF Rx Instructions: As directed. Instruction sheet given to the patient. Instruction sheet will be sent to the pharmacy. (DME) pen needle, diabetic 32 gauge x 5/32" needle See Rx Instructions miscellaneous .MEDSUPPLY Qty: 50 3RF Rx Instructions: Inject 1x a day insulin aspart U-100 [Novolog FlexPen U-100 Insulin] 100 unit/mL (3 mL) insulin pen 1 sliding scale dose subcut USEASDIRECTD MDD 16 Qty: 15 1RF Rx Instructions: To inject before 3 meals based on pre meal sliding scale. Target of 150/50 (DME) pen needle, diabetic 32 gauge x 5/32" needle See Rx Instructions .ROUTE .MEDSUPPLY Qty: 100 1RF Rx Instructions: Inject up to 4x a day with new pen needle gabapentin 600 mg tablet 600 mg PO QAM gabapentin 600 mg tablet 1,200 mg PO HS ascorbate calcium (vitamin C) 500 mg tablet 500 mg PO QAM ergocalciferol (vitamin D2) [Vitamin D2] 1,250 mcg (50,000 unit) capsule 50,000 unit PO Q7D benzonatate 100 mg capsule 100 mg PO TID PRN (Reason: Cough) duloxetine 20 mg capsule,delayed release(DR/EC) 20 mg PO DAILY albuterol sulfate 90 mcg/actuation HFA aerosol inhaler 2 inh inhalation Q6H PRN (Reason: shortness of breath or wheezing) Qty: 8.5 0RF levofloxacin [Levaquin] 500 mg Tablet 500 mg PO DAILY Rx Instructions: Start Date 05/09/24 x7 day supply methylprednisolone [Medrol (Angel)] 4 mg Tablets,Dose Pack See Rx Instructions .ROUTE .COMPLEX Rx Instructions: Take as per package instructions. Start Date 05/09/24 x6 day supply lisinopril 2.5 mg tablet 2.5 mg PO QAM Referrals Referrals: Adonis Amaya [Primary Care Provider] -
[2024-05-13 15:43] LABS: Adenovirus PCR Not Detected (NotDetected); Bordetella parapertussis PCR Not Detected (NotDetected); Bordetella pertussis PCR Not Detected (NotDetected); Chlamydia pneumoniae PCR Not Detected (NotDetected); Coronavirus 229E PCR Not Detected (NotDetected); Coronavirus CoV-2 (COVID19)PCR Not Detected (NotDetected); Coronavirus HKU1 PCR Not Detected (NotDetected); Coronavirus NL63 PCR Not Detected (NotDetected); Coronavirus OC43PCR Not Detected (NotDetected); Human Metapneumovirus PCR Not Detected (NotDetected); Influenza A PCR Not Detected (NotDetected); Influenza B PCR Not Detected (NotDetected); Mycoplasma pneumoniae PCR Not Detected (NotDetected); Parainfluenza Virus 1 PCR Not Detected (NotDetected); Parainfluenza Virus 2 PCR Not Detected (NotDetected); Parainfluenza Virus 3 PCR Not Detected (NotDetected); Parainfluenza Virus 4 PCR Not Detected (NotDetected); Respiratory Syncytial VirusPCR Not Detected (NotDetected); Rhinovirus/Enterovirus PCR DETECTED (NotDetected)
[2024-05-13 15:47] LABS: Alanine Aminotransferase 16 U/L (7-52); Albumin Globulin Ratio 1.6 (0.9-2); Albumin Level 3.9 gm/dl (3.4-5.0); Alkaline Phosphatase 69 U/L (34-104); Anion Gap 8 (3-11); Aspartate Aminotransferase 11 U/L (13-39); BUN Creatinine Ratio 25.2 (10-20); Bilirubin,Total 0.8 mg/dl (0.2-1.0); Blood Urea Nitrogen 26 mg/dl (6-23); Calcium 9.4 mg/dl (8.6-10.3); Carbon Dioxide 28 mmol/L (21-32); Chloride 97 mmol/L (98-107); Creatinine Clr Calc Pharmacy 69.8 ml/min; Globulin 2.4 gm/dl (2.5-4.0); Glucose 297 mg/dl (70-99(Fasting)); Magnesium 1.9 mg/dl (1.7-2.4); Potassium 4.9 mmol/L (3.5-5.1); Sodium 133 mmol/L (136-145); Total Protein 6.3 gm/dl (6.0-8.3)
[2024-05-13 15:49] LABS: INR 0.9 (0.9-1.1); Prothrombin Time 10.1 Seconds (9.0-12.0)
[2024-05-13 15:52] LABS: Troponin I High Sensitivity < 2.3 pg/ml (0-20)
--- NOTE | 2024-05-13 16:16 | Electrocardiogram Report ---
Test Reason : Blood Pressure : */* mmHG Vent. Rate : 89 BPM Atrial Rate : 89 BPM P-R Int : 134 ms QRS Dur : 78 ms QT Int : 350 ms P-R-T Axes : 68 -8 53 degrees QTcB Int : 425 ms Normal sinus rhythm Normal ECG When compared with ECG of 06-May-2024 09:35, No significant change was found Confirmed by Sim Alaniz ([id number]) on 05/13/2024 4:16:41 PM Referred By: Caryl Munoz Confirmed By: Sim Alaniz
[2024-05-13 16:21] LABS: Basophils # (auto) 0.02 K/uL (0.00-0.20); Basophils % (auto) 0.2 %; Eosinophils # (auto) 0.03 K/uL (0.00-0.50); Eosinophils % (auto) 0.3 %; Immature Granulocytes # (auto) 0.83 K/uL (0.01-0.20); Immature Granulocytes % (auto) 8.3 %; Monocytes # (auto) 1.36 K/uL (0.11-0.59); Monocytes % (auto) 13.6 %; Neutrophils # (auto) 7.44 K/uL (1.40-6.50); Neutrophils % (auto) 74.6 %
--- NOTE | 2024-05-13 18:23 | History & Physical Report ---
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 Bone metastasis, new finding of brain metastasis as of 04/14/2024 -Completed whole brain radiation 05/06/24 and right lung radiation 03/04/24. Maintenance atezolizumab. -Nearly 3 weeks of discrete episodes of dyspnea -O2 sat 94-95% on room air at rest -CXR obtained in ED showed no acute findings -Will defer additional chest imaging on admission as CTA chest was completed 1 week ago -CTA chest (05/06/24) showed lower lung ground glass opacities, possible mild interlobular septal thickening -Respiratory biofire positive for entero/rhinovirus -WBC 9.98, afebrile on admission. Will defer additional antibiotics at this time due to a lower suspicion of infectious process -Patient did not receive symptomatic improvement on oral steroids, so will hold additional systemic steroids -Differential includes radiation pneumonitis, bronchospasm, mucus plugging, CHF/PND, or side effect of Tecentriq -Will obtain echocardiogram to evaluate cardiac etiologies of dyspnea, BNP negative on admission -Ordered flutter valve, scheduled hypertonic saline nebs, Duonebs PRN. Monitor on PCU with continuous pulse oximetry -Pulmonology consulted, will make NPO at midnight for evaluation for bronchoscopy -Note: takes lorazepam prior to radiation treatments, will order PRN Hyperglycemia | Type 2 Diabetes Mellitus -Hold home medications -Will start Lantus BID and SSI -Continue gabapentin for neuropathy Hyponatremia -Sodium 133 on admission -Trend daily BMP Hypertension -Continue lisinopril Rash at Left Thoracic Region -Per patient and his , has had rash intermittently for many years -Responds well to hydrocortisone cream, notes itching at present Thrombocytopenia-possibly due to chemotherapy and immunotherapy? -Will d/w Oncology as to etiology -follow CBC Admit to: PCU, observation Diet: Carb consistent, NPO at midnight VTE Prophylaxis: SCDs, no anticoag for now in case of bronchoscopy Code Status: DNR/DNI History of Present Illness Chief Complaint: SOB Primary Care Provider: Adonis Amaya Stuart Toribio is a 74 year-old male who presents today for worsening shortness of breath. His medical history is significant for small cell lung cancer with metastases to the brain and bone, T2DM. Patient presents with several weeks of episodic shortness of breath. Notes that 3 weeks ago he finished radiation for brain metastasis on 05/01/24, had previously completed palliative radiation therapy to right lung on 03/04/24. After starting radiation treatment of the bra in metastases, was started on IV dexamethasone which was later transitioned to oral dexamethasone. Secondary to these steroid therapies, patient became more hyperglycemic and was started on insulin therapy by endocrinology on 04/24/24. Around this time period, patient has become more short of breath. Notes that his SOB will largely come in episodes which last for seconds up to 1 minute in duration and resolve spontaneously. Patient states that he will have his "slap him on the back" which seems to help stop the episode. This happens several times per day and can even awaken him from his sleep. He was evaluated in the ED on 05/06/24 and was discharged on cefdinir and doxycycline for treatment of pneumonia- this antibiotic regimen was later switched to Levaquin by oncology (was also started on Medrol Dosepak by oncology at same time). Has not had any change in symptoms since starting the antibiotics or the oral steroids. Denies changes in symptoms when laying down vs sitting upright. Notes some diarrhea with the antibiotics, although that has since resolved. Denies any nasal congestion/drainage/sore throat. Patient states that he called his oncologist today due to frustration that these episodes have not stopped, he was told to come to the ED for evaluation for bronchoscopy by pulmonology. ED Course: -EKG -CBC, CMP, procal, BNP -Chest x-ray Allergies Allergy/AdvReac Type Severity Reaction Status Date / Time oxycodone AdvReac Intermediate Syncope Verified 05/13/24 17:11 tramadol AdvReac Intermediate Dizziness Verified 05/13/24 17:11 betamethasone AdvReac Mild Lower Verified 05/13/24 17:11 extremity numbness/pain Home Medications Medication Instructions Recorded Confirmed Type ascorbate calcium (vitamin C) 500 500 mg PO QAM 10/10/23 05/13/24 History mg tablet gabapentin 600 mg tablet 1,200 mg PO HS 10/10/23 05/13/24 History gabapentin 600 mg tablet 600 mg PO QAM 10/10/23 05/13/24 History empagliflozin 10 mg tablet 10 mg PO 3XWK 01/30/24 05/13/24 History (Jardiance) lorazepam 1 mg tablet 1 mg PO DAILY PRN anxiety #2 tabs 04/02/24 05/13/24 Rx benzonatate 100 mg capsule 100 mg PO TID PRN Cough 04/14/24 05/13/24 History lorazepam 1 mg tablet 1 mg PO ONCE #30 tabs 04/15/24 05/13/24 Rx memantine 5 mg tablet 5 mg PO DAILY #70 tabs 04/15/24 05/13/24 Rx ergocalciferol (vitamin D2) 1,250 50,000 unit PO Q7D 04/24/24 05/13/24 History mcg (50,000 unit) capsule (Vitamin D2) pen needle, diabetic 32 gauge x #50 ea 04/26/24 04/29/24 Rx 5/32" insulin aspart U-100 100 unit/mL 1 sliding scale dose subcut 04/29/24 05/13/24 Rx (3 mL) subcutaneous pen (Novolog USEASDIRECTD #15 mL FlexPen U-100 Insulin aspart) pen needle, diabetic 32 gauge x #100 ea 04/29/24 04/29/24 Rx 5/32" albuterol sulfate 90 mcg/actuation 2 inh inhalation Q6H PRN shortness 05/06/24 05/13/24 Rx aerosol inhaler of breath or wheezing #8.5 grams duloxetine 20 mg capsule,delayed 20 mg PO DAILY 05/06/24 05/13/24 History release levofloxacin 500 mg tablet 500 mg PO DAILY 05/13/24 05/13/24 History lisinopril 2.5 mg tablet 2.5 mg PO QAM 05/13/24 05/13/24 History methylprednisolone 4 mg tablets in See Rx Instructions .Route .COMPLEX 05/13/24 05/13/24 History a dose pack (Medrol (Angel)) Past Med/Surg History Problem List (Updated 05/13/24 @ 19:13 by Sveta Freed MD) Thrombocytopenia (Acute) Acute dyspnea (Acute) Acute hyperglycemia (Acute) SOB (shortness of breath) (Acute) Pneumonia (Acute) Type 2 diabetes mellitus Weakness (Acute) Metastatic cancer to brain (Acute) Lumbosacral facet joint syndrome Lumbar back pain Small cell lung cancer (Chronic 10/24/23) Penile anomaly Medical History Hypertension History of pneumonia 09/28/23 > rx'd inhalers, abx, prednisone Spinal stenosis Peripheral neuropathy Hyperlipidemia Diabetes mellitus Hx of colonic polyps Mass of right lung Surgical History History of cataract surgery Left eye Hx of colonoscopy with polypectomy History of tonsillectomy History of lumbar surgery (2018) L5-S1 Family History Mother , 101 Diabetes Natural with unknown cause Father , in his 80s Stroke Myocardial infarction Diabetes Brother No problems noted. Brother No problems noted. Brother Overdose Son No problems noted. Son No problems noted. 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 How many Children do You have: 2 Feels Safe at Home: Yes Diet: regular caffeine: Yes (1 cup/day) during the past year weight has: remained stable Assistive Devices: Walker Review of Systems Review of Systems: As per above Physical Exam Constitutional: WD/WN, vitals as above Eyes: + anicteric sclerae and PERRL ENMT: Ears: no external ear abnormality Nose: no external nose abnormality Mouth: no oropharynx abnormality Respiratory: normal respiratory effort; no respiratory distress Auscultation: lungs clear to auscultation bilaterally; no crackles and no wheezes Cardiovascular: Rate/Rhythm: regular rate and regular rhythm Extremities: no edema Gastrointestinal (Abdomen): Inspection/Auscultation: abdomen normal to inspection; abdomen not distended Percussion/Palpation: abdomen soft; abdomen nontender Musculoskeletal: Moves all limbs independently Skin: Several scabbed lesions at left mid thoracic region. No fluid and no bleeding, no extending erythema Neurologic: No focal defects appreciated, CN 2-10 grossly intact Psychiatric: A+Ox3, euthymic affect Results & Data Results & Data Vital Signs (Past 12 Hours) Vital Signs Temp Pulse Pulse Resp BP BP Pulse Ox 05/13/24 16:29 80 16 147/80 H 95 05/13/24 14:46 88 20 98 05/13/24 14:46 88 20 98 05/13/24 14:46 98 05/13/24 14:40 89 05/13/24 14:31 36.6 C 100 H 20 138/75 96 O2 Del Method O2 Flow Rate 05/13/24 16:29 Room Air 05/13/24 14:46 Room Air 05/13/24 14:46 Room Air 05/13/24 14:46 Room Air 0 05/13/24 14:40 05/13/24 14:31 Room Air Diagnostic Findings Chest X-Ray 05/13/24 14:35 XR chest 1V portable CLINICAL HISTORY: Dyspnea COMPARISON STUDY: 05/06/2024 FINDINGS: Heart size and pulmonary vasculature are normal. No effusion or consolidation. No pneumothorax. IMPRESSION: No acute findings. ACT 112: Negative or not required by law. Electronically signed by: Kai Ybarra M.D. 05/13/2024 2:58 PM ECG Additional Comments: ECG with NSR rate 89, no ischemic changes Code Status & VTE Plan VTE Prophylaxis Plan VTE Prophylaxis will be ordered: Yes Supervising Physician Co-Signing Physician Notes I personally examined the patient and verified all nelson points of history and exam, discussed case, and agree with decision making with Dr. Heredia with the following additions/exceptions: S-Pt here with intermittent episodes of dyspnea for 3 weeks, not improved with antibiotic courses or steroid taper. It seemed to come on after his brain radiation, but he also received a dose of Tecentriq right after his brain radiation as well. Goes away on its own, not coughing up any sputum. Not improved with albuterol/nebs. O- Vitals Reviewed Gen: [AAOx3, NAD] HEENT: [anicteric sclerae, EOMI] CV: [RRR no mgr nl S1S2] Pulm: [fine crackles in bilat lower lung dhaliwal, no wheezes or rhonchi] Abd: [+BS soft NT ND no masses or hernias] Ext: [no edema, 2+ DP pulses] Skin: [no rashes, warm/dry] Neuro: [full strength throughout] CBC, BMP, CXR reviewed A/P: 74 yo male here with intermittent episodes of dyspnea Could be side effect of Tecentriq? Consult PULM for further eval, keep NPO in case of need for bronch No further steroids or antibiotics at this time Trial of hypertonic saline and scheduled DUonebs Check ECHO Resident Activity Tracking Resident Involvement: Resident Care Provided Care Provided: Adult Hospital Medicine
[2024-05-13] MEDS ORDERED: GLUCAGON FOR INJ 1 MG VIAL SQ PRN (21:28)
[2024-05-13] MEDS ORDERED: DEXTROSE 50% 50 ML SYRINGE IV PRN (21:28)
[2024-05-13] MEDS ORDERED: GLUCOSE 40% GEL 15 GM TUBE PO PRN (21:28)
[2024-05-13] MEDS ORDERED: HYDROCORTISONE 1% CRM 30 GM TUBE EXT PRN (21:28)
[2024-05-13] MEDS ORDERED: GLUCOSE 10 TAB/TUBE PO PRN (21:28)
[2024-05-13] MEDS ORDERED: ONDANSETRON INJ 2 MG/ML 2 ML VIAL IV PRN (21:28)
[2024-05-13] MEDS ORDERED: ACETAMINOPHEN 325 MG TAB PO PRN (21:28)
[2024-05-13] MEDS ORDERED: CARBOHYDRATES FOR HYPOGLYCEMIA PO PRN (21:28)
[2024-05-13] MEDS ORDERED: POLYETHYLENE (MIRALAX) 17 GM PACK PO PRN (21:28)
--- NOTE | 2024-05-13 21:36 | Billing Data ---
Date of Service May 13, 2024 Coding Level of Care Code 00564 INT INP/OBS CARE
[2024-05-13] MEDS: INSULIN ASPART PER UNIT CHARGE SC SCH (22:36)
[2024-05-13] MEDS: LANTUS PER UNIT CHARGE SQ SCH (22:37)
[2024-05-13] MEDS: GABAPENTIN 600 MG TAB PO SCH (22:42)
[2024-05-14] MEDS: INSULIN ASPART PER UNIT CHARGE SC SCH ×2 (01:01→12:53)
[2024-05-14 06:12] LABS: Appearance Urine Clear (Clear); Bilirubin Urine Negative (Negative); Blood Urine Negative (Negative); Color Urine Yellow; Glucose Urine UA 3+ (Negative); Ketones Urine Negative (Negative); Leukocyte Esterase Urine Negative (Negative); Nitrite Urine Negative (Negative); Protein Urine Negative (Negative); Specific Gravity Urine 1.035 (1.000-1.030); Urobilinogen Urine Negative (Negative)
[2024-05-14 06:51] LABS: Albumin Globulin Ratio 1.6 (0.9-2); Albumin Level 3.4 gm/dl (3.4-5.0); BUN Creatinine Ratio 29.3 (10-20); Bilirubin,Total 1.1 mg/dl (0.2-1.0); Calcium 8.4 mg/dl (8.6-10.3); Creatinine Clr Calc Pharmacy 94.2 ml/min; Globulin 2.1 gm/dl (2.5-4.0); Hematocrit (blood only) 36.6 % (42.0-52.0); Hemoglobin 12.2 g/dl (14.0-18.0); Mean Corpuscular Hemoglobin 28.6 pg (25.0-34.0); Mean Corpuscular Hgb Conc 33.3 g/dL (32.0-36.0); Mean Corpuscular Volume 85.7 fL (80.0-100.0); Mean Platelet Volume 11.6 fL (9.4-12.4); Platelet Count 69 K/uL (130-400); Potassium 3.6 mmol/L (3.5-5.1); RDW Coefficient of Variation 17.4 % (11.5-14.5); RDW Standard Deviation 53.6 fL (36.4-46.3); Red Blood Count 4.27 M/uL (4.70-6.10); Total Protein 5.5 gm/dl (6.0-8.3); White Blood Count 7.04 K/ul (4.8-10.8)
[2024-05-14 07:09] LABS: Basophils # (auto) 0.03 K/uL (0.00-0.20); Basophils % (auto) 0.4 %; Eosinophils # (auto) 0.06 K/uL (0.00-0.50); Eosinophils % (auto) 0.9 %; Immature Granulocytes # (auto) 0.62 K/uL (0.01-0.20); Immature Granulocytes % (auto) 8.8 %; Lymphocytes # (auto) 0.37 K/uL (1.20-3.40); Lymphocytes % (auto) 5.3 %; Monocytes # (auto) 0.91 K/uL (0.11-0.59); Monocytes % (auto) 12.9 %; Neutrophils # (auto) 5.05 K/uL (1.40-6.50); Neutrophils % (auto) 71.7 %; Ovalocytes 1+; Platelet Estimate Decreased (Normal); Polychromasia 1+
[2024-05-14] MEDS ORDERED: INSULIN ASPART PER UNIT CHARGE SC SCH (07:30)
[2024-05-14] MEDS: SODIUM CHLOR 7% 4 ML NEB NEB SCH (07:38)
--- NOTE | 2024-05-14 08:17 | Pulmonary Consultation ---
Date of Consultation May 14, 2024 Assessment & Plan (1) Acute dyspnea: (2) SOB (shortness of breath): (3) Small cell lung cancer: Laterality: unspecified laterality Lung location: unspecified part of lung Qualified Code(s): C34.90 - Malignant neoplasm of unspecified part of unspecified bronchus or lung (4) Metastatic cancer to brain: (5) COPD with emphysema: Plan CT chest 05/06/2024 personally reviewed: Bilateral apical pleural scarring Minimal paraseptal emphysema appreciated especially on the right side Right upper lobe 1.3 cm nodularity stable 03/2024 Right middle lobe linear scarring/atelectasis persists Significant improvement in the right lower lobe pleural-based opacity Right hilar lymphadenopathy, improved from before -- Shortness of breath Etiology is not clear Does have significant smoking history and is not on any inhalers Lungs are not bronchospastic but there are S crackles appreciated in the lower lobes --Metastatic small cell lung cancer With mets to the brain s/p radiation On Atelizumab Plan: Follow-up ESR AND CRP Physical exam does have bilateral crackles, ? Velcro like, I think doing a CT chest without contrast to see if there are diffuse groundglass opacities will be helpful If he does have diffuse groundglass opacity then this is most likely pneumonitis and would recommend steroids Will start him on budesonide and formoterol nebulized Continue with hypertonic saline nebulized Did get levofloxacin as an outpatient, recommend azithromycin for 5 days Case was discussed with primary team Please note the above document was generated using voice recognition software. It may contain grammatical, syntax or spelling errors.Any formal questions or concerns about the content, text or information contained within the body of this dictation should be directly addressed to the provider for clarification. History of Present Illness Attending Physician: Pita Martin MD History of Present Illness 74-year-old male admitted to the hospital for hypoxia and shortness of breath Past medical history: Metastatic small cell lung cancer, diabetes type 2, hyponatremia Pulmonary consulted for the same At the time of examination patient was saturating 90-91% on room air He was not in any respiratory distress but I stated that he has been having feeling that he is not able to take a deep breath and When asking whether he has chest congestion and difficulty bringing up the phlegm he was not able to clearly answer that No dysuria or diarrhea prior to coming to the hospital Denied any unusual headache or blurry vision No nausea or vomiting paralyzed not on any inhalers at home He was discharged on cefdinir and doxycycline when he was in the ER on 05/06/2024 which was switched to Levaquin by oncology He stated there is no change in his symptoms since 05/06/2024 visit to the ER Social history:40 pack year smoking history. Quit at the age of 56 Allergies Allergy/AdvReac Type Severity Reaction Status Date / Time oxycodone AdvReac Intermediate Syncope Verified 05/13/24 17:11 tramadol AdvReac Intermediate Dizziness Verified 05/13/24 17:11 betamethasone AdvReac Mild Lower Verified 05/13/24 17:11 extremity numbness/pain Home Medications Medication Instructions Recorded Confirmed Type ascorbate calcium (vitamin C) 500 500 mg PO QAM 10/10/23 05/13/24 History mg tablet gabapentin 600 mg tablet 1,200 mg PO HS 10/10/23 05/13/24 History gabapentin 600 mg tablet 600 mg PO QAM 10/10/23 05/13/24 History empagliflozin 10 mg tablet 10 mg PO 3XWK 01/30/24 05/13/24 History (Jardiance) lorazepam 1 mg tablet 1 mg PO DAILY PRN anxiety #2 tabs 04/02/24 05/13/24 Rx benzonatate 100 mg capsule 100 mg PO TID PRN Cough 04/14/24 05/13/24 History lorazepam 1 mg tablet 1 mg PO ONCE #30 tabs 04/15/24 05/13/24 Rx memantine 5 mg tablet 5 mg PO DAILY #70 tabs 04/15/24 05/13/24 Rx ergocalciferol (vitamin D2) 1,250 50,000 unit PO Q7D 04/24/24 05/13/24 History mcg (50,000 unit) capsule (Vitamin D2) pen needle, diabetic 32 gauge x #50 ea 04/26/24 04/29/24 Rx 532" insulin aspart U-100 100 unit/mL 1 sliding scale dose subcut 04/29/24 05/13/24 Rx (3 mL) subcutaneous pen (Novolog USEASDIRECTD #15 mL FlexPen U-100 Insulin aspart) pen needle, diabetic 32 gauge x #100 ea 04/29/24 04/29/24 Rx " albuterol sulfate 90 mcg/actuation 2 inh inhalation Q6H PRN shortness 05/06/24 05/13/24 Rx aerosol inhaler of breath or wheezing #8.5 grams duloxetine 20 mg capsule,delayed 20 mg PO DAILY 05/06/24 05/13/24 History release levofloxacin 500 mg tablet 500 mg PO DAILY 05/13/24 05/13/24 History lisinopril 2.5 mg tablet 2.5 mg PO QAM 05/13/24 05/13/24 History methylprednisolone 4 mg tablets in See Rx Instructions .Route .COMPLEX 05/13/24 05/13/24 History a dose pack (Medrol (Angel)) Patient History Medical History Hypertension History of pneumonia 09/28/23 > rx'd inhalers, abx, prednisone Spinal stenosis Peripheral neuropathy Hyperlipidemia Diabetes mellitus Hx of colonic polyps Mass of right lung Surgical History History of cataract surgery Left eye Hx of colonoscopy with polypectomy History of tonsillectomy History of lumbar surgery (2018) L5-S1 Family History Mother , 101 Diabetes Natural with unknown cause Father , in his 80s Stroke Myocardial infarction Diabetes Brother No problems noted. Brother No problems noted. Brother Overdose Son No problems noted. Son No problems noted. 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 How many Children do You have: 2 Feels Safe at Home: Yes Safety Concerns: Feels Safe At This Time Diet: regular caffeine: Yes (1 cup/day) during the past year weight has: remained stable Assistive Devices: Cane Review of Systems 2 Review of Systems: All systems reviewed & are unremarkable except as noted in Subjective Physical Exam 2 Physical Exam: Constitutional: No acute distress HEENT: EOMI, PERRLA Respiratory system: Decreased air entry bilaterally, no wheeze, no rhonchi, positive crackles bilateral lower lobes, more on the right side, questionable Velcro like CVS: S1-S2 positive, no murmurs or gallops Abdomen: Soft, nontender, nondistended, positive bowel sounds x4 Extremities: +2 pulses bilaterally radialis/ dorsalis pedis, no cyanosis, no edema Neuro: Awake alert oriented x3 Psych: Normal mood and affect G/U: No [place] Skin: no rashes, warm and dry Lymphatic: no cervical or axillary lymphadenopathy Results & Data Results & Data Vital Signs (Past 12 Hours) Vital Signs Temp Pulse Pulse Resp BP BP Pulse Ox 05/14/24 07:43 80 16 89 L 05/14/24 04:10 36.6 C 82 18 130/68 92 05/13/24 21:50 74 18 159/72 H 92 05/13/24 21:40 05/13/24 21:28 94 05/13/24 21:23 77 16 144/86 H 93 O2 Del Method 05/14/24 07:43 Room Air 05/14/24 04:10 Room Air 05/13/24 21:50 Room Air 05/13/24 21:40 Room Air 05/13/24 21:28 Room Air 05/13/24 21:23 Room Air Laboratory Results 05/14/24 06:00 05/14/24 06:00 PG Care Time/CCT Total # of Minutes Spent Total Time Spent with Patient: Total time spent is greater than 50% in coordination of care (as documented) at patient's floor/unit and/or counseling patient: Coding Level of Care Code 44526 INT INP/OBS CARE 3/75MIN Diagnoses Acute dyspnea R06.00 SOB (shortness of breath) R06.02 Small cell carcinoma of lower lobe of right lung C34.90 Laterality: unspecified laterality Lung location: unspecified part of lung Metastatic cancer to brain C79.31 COPD with emphysema J43.9
[2024-05-14] MEDS: GABAPENTIN 600 MG TAB PO SCH (08:52)
[2024-05-14] MEDS: lisinopril 2.5 MG TAB PO SCH (08:54)
[2024-05-14] MEDS: MEMANTINE HCL 5 MG TAB PO SCH (08:55)
[2024-05-14] MEDS: DULoxetine HCL 20 MG CAP PO SCH (08:57)
[2024-05-14] MEDS ORDERED: Nursing to Pharmacy Communication SCH (09:45)
[2024-05-14] MEDS: LORazepam 1 MG TAB PO PRN (13:21)
[2024-05-14] MEDS: AZITHROMYCIN 250 MG TAB PO ONE (14:17)
--- NOTE | 2024-05-14 15:23 | CT Scan Report ---
CT chest diagnostic wo con CT DOSE: 404.26 mGy.cm CLINICAL HISTORY: R/o pneumonitis. TECHNIQUE: Multiaxial CT images of the chest were performed without contrast. A dose lowering techni que was utilized adhering to the principles of ALARA. COMPARISON STUDY: 05/06/2024 CT and chest x-ray earlier today. FINDINGS: There are interval small areas of groundglass opacity anterior right upper lobe and posteri or right upper lobe. There is a stable small area of likely atelectasis inferior right middle lobe. S table trace right pleural effusion versus mild pleural thickening. Stable subpleural right lower lobe lesion is stable. No other interval pulmonary consolidation. No pneumothorax. No enlarged adenopathy . No pericardial effusion. There are diffuse coronary artery and aortic calcifications. No acute osse ous findings. IMPRESSION: 1. Interval small areas of acute pneumonitis/early pneumonia at the right lung. Follow-up chest CT re commended in 3 months to make sure this completely resolves. 2. Otherwise as described. ACT 112: Positive. There are findings on this exam that require communication between the performing entity and the patient following Patient Test Result Information Act ([place] Act 112) guidelines. Electronically signed by: Kai Ybarra M.D. 05/14/2024 3:22 PM
--- NOTE | 2024-05-14 16:59 | Hospitalist Progress Note ---
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 #Pneumonitis/episodic SOB/metastatic Small Cell Lung Cancer/enterorhinovirus-RLL small cell carcinoma, stage [id number], with bone and brain metastases s/p whole brain radiation 05/06/24 and right lung radiation 03/04/24, on maintenance atezolizumab. Presents with 3 weeks of discrete episodes of dyspnea, pulse ox normal, CXR negative for acute findings. Repeat chest CT 05/14 shows acute pneumonitis/early pneumonia in the right lung, atelectasis RML, trace right pleural effusion, stable subpleural right lower lobe lesion. Respiratory biofire positive for entero/rhinovirus, but does not seem to be very ill from this. No evidence of sepsis. Differential includes radiation pneumonitis, bronchospasm, mucus plugging, CHF/PND, or side effect of Tecentriq induced pneumonitis. He does feel better already just with starting hypertonic saline nebs along with scheduled DuoNebs -Echo still pending but BNP negative, no evidence of volume overload -Appreciate pulmonology consultation-with pneumonitis-start high-dose steroids with prednisone 60 Mg p.o. twice daily, add on azithromycin 500 mg p.o. once daily x 3-day course for atypical coverage -Continue flutter valve, scheduled hypertonic saline nebs, add on Perforomist and budesonide twice daily; continue as needed DuoNebs #Hyperglycemia | Type 2 Diabetes Mellitus-blood sugars remain labile-some high and some low -Continue Lantus BID and tighten down correction factor and carb ratio and range on supplemental NovoLog -Continue gabapentin for neuropathy #Hyponatremia-Sodium 133 on admission, likely from pulmonary process -Trend daily BMP #Hypertension-BPs are controlled -Continue lisinopril #Rash at Left Thoracic Region-Per patient and his , has had rash intermittently for 30 years, but seems worse lately. It does appear to be similar to herpes zoster rash. He has never seen a rn diabetes educator -Responds well to hydrocortisone cream, notes itching -Recommend dermatology follow-up after discharge #Thrombocytopenia-possibly due to chemotherapy and immunotherapy? Platelets patsy n further to 69 -Will d/w Oncology as to etiology -follow CBC DVT prophylaxis-SCDs, add Lovenox as no bronchoscopy planned-hold Lovenox if platelets less than 50 Disposition-continued stay, possible discharge to home tomorrow Admission and Anticipated Discharge Date Admission Date: May 13, 2024 Anticipated date of discharge: 05/15/24 Subjective Patient reports feeling a little bit better since starting hypertonic saline nebs, no episodes of gasping for air. I discussed his case with pulmonology. Patient does report occasional cough. Telemetry with normal sinus rhythm with rates in the 70s to 80s Physical Exam Constitutional: WD/WN, vitals as above Respiratory: normal respiratory effort and + cough Auscultation: + crackles (Bibasilar); no rhonchi and no wheezes Cardiovascular: RRR, no murmur, no edema Gastrointestinal (Abdomen): normal bowel sounds, soft, nontender, no hepatosplenomegaly Psychiatric: A+Ox3, euthymic affect Results & Data Results & Data Vital Signs (Past 12 Hours) Vital Signs Temp Pulse Pulse Resp BP Pulse Ox O2 Del Method 05/14/24 16:53 36.8 C 99 H 18 132/67 91 Room Air 05/14/24 11:57 36.7 C 89 18 134/70 91 Room Air 05/14/24 08:16 91 H 18 145/68 H 90 Room Air 05/14/24 08:00 78 05/14/24 08:00 Room Air 05/14/24 07:43 80 16 89 L Room Air Laboratory Results CBC, CMP, UA reviewed PG Care Time/CCT Total # of Minutes Spent Total Time Spent with Patient: Total time spent is greater than 50% in coordination of care (as documented) at patient's floor/unit and/or counseling patient: Coding Level of Care Code 92781 SUB INP/OBS CARE 3/50MIN Diagnoses Pneumonitis J98.4 Acute hyperglycemia R73.9 Type 2 diabetes mellitus E11.9 Metastatic cancer to brain C79.31"
[2024-05-14] MEDS: predniSONE 20 MG TAB PO SCH (17:50)
[2024-05-14] MEDS: FORMOTEROL 20 MCG/2 ML VIAL NEB SCH (19:44)
[2024-05-14] MEDS: BUDESONIDE 0.25 MG/2 ML VIAL (PULMICORT) NEB SCH (19:45)
[2024-05-14] MEDS: ENOXAPARIN INJ 40 MG/0.4 ML SYR SQ SCH (21:47)
[2024-05-15 06:25] LABS: Hematocrit (blood only) 33.4 % (42.0-52.0); Hemoglobin 11.3 g/dl (14.0-18.0); Mean Corpuscular Hemoglobin 28.5 pg (25.0-34.0); Mean Corpuscular Hgb Conc 33.8 g/dL (32.0-36.0); Mean Corpuscular Volume 84.1 fL (80.0-100.0); Mean Platelet Volume 11.7 fL (9.4-12.4); Platelet Count 62 K/uL (130-400); RDW Coefficient of Variation 17.4 % (11.5-14.5); Red Blood Count 3.97 M/uL (4.70-6.10); White Blood Count 6.33 K/ul (4.8-10.8)
[2024-05-15 06:46] LABS: BUN Creatinine Ratio 43.4 (10-20); Calcium 8.4 mg/dl (8.6-10.3); Creatinine Clr Calc Pharmacy 93.3 ml/min; Magnesium 1.9 mg/dl (1.7-2.4)
[2024-05-15 06:50] LABS: Basophils # (auto) 0.02 K/uL (0.00-0.20); Basophils % (auto) 0.3 %; Immature Granulocytes % (auto) 9.5 %; Lymphocytes # (auto) 0.13 K/uL (1.20-3.40); Lymphocytes % (auto) 2.1 %; Monocytes # (auto) 0.24 K/uL (0.11-0.59); Monocytes % (auto) 3.8 %; Neutrophils # (auto) 5.34 K/uL (1.40-6.50); Neutrophils % (auto) 84.3 %
[2024-05-15] MEDS: ALBUT/IPRATROP 3MG/0.5MG NEB 3 ML VIAL NEB PRN (07:17)
[2024-05-15] MEDS: AZITHROMYCIN 250 MG TAB PO SCH (08:07)
[2024-05-15] MEDS ORDERED: AZITHROMYCIN 250 MG TAB PO SCH (09:00)
--- NOTE | 2024-05-15 09:42 | XCELERA ---
[id number]
--- NOTE | 2024-05-15 10:11 | Pulmonology Progress Note ---
Date of Service May 15, 2024 Assessment & Plan (1) Acute dyspnea: (2) SOB (shortness of breath): (3) Small cell lung cancer: Laterality: unspecified laterality Lung location: unspecified part of lung Qualified Code(s): C34.90 - Malignant neoplasm of unspecified part of unspecified bronchus or lung (4) Metastatic cancer to brain: (5) COPD with emphysema: Plan CT chest 05/06/2024 personally reviewed: Bilateral apical pleural scarring Minimal paraseptal emphysema appreciated especially on the right side Right upper lobe 1.3 cm nodularity stable 03/2024 Right middle lobe linear scarring/atelectasis persists Significant improvement in the right lower lobe pleural-based opacity Right hilar lymphadenopathy, improved from before -- Shortness of breath CT chest does show worsening in the right-sided opacities compared to CAT scan 05/06/2024 Pneumonitis is a possibility Immune therapy related pneumonitis, I would classify this as grade 1-grade 2 Will give prednisone 1 Mg per KG and taper it off over 6-8 weeks. Does have significant smoking history and is not on any inhalers Lungs are not bronchospastic but there are S crackles appreciated in the lower lobes --Metastatic small cell lung cancer With mets to the brain s/p radiation On Atezolizumab Plan: Continue with budesonide and formoterol nebulized, would recommend Stiolto or Anoro on discharge Continue with hypertonic saline nebulized and even at home Recommend 40 mg twice daily of prednisone for at least 10 days then decrease by 10 mg every week following that. Would recommend Bactrim Rloslg-Jgyagwibu-Yxnxib after azithromycin is completed while the patient is on prednisone Adding pantoprazole on a daily basis will also be helpful Recommend diabetic education given that the patient's sugars have been going up while being on prednisone The patient is going to follow-up with . Case was discussed with her. Recommend repeating CT chest in approximately 2 months Complete the course of azithromycin for 5 days Case was discussed with primary team Please note the above document was generated using voice recognition software. It may contain grammatical, syntax or spelling errors.Any formal questions or concerns about the content, text or information contained within the body of this dictation should be directly addressed to the provider for clarification. Admission and Anticipated Discharge Date Admission Date: May 13, 2024 Subjective Patient seen and examined at bedside. No acute distress, no dressings overnight He states feeling better The chest congestion has improved. He is coughing but not bringing up any phlegm Feels that it has loosened up. Denies any nausea or vomiting Fair appetite Was saturating 98% on room air Review of Systems 2 Review of Systems: All systems reviewed & are unremarkable except as noted in Subjective Physical Exam 2 Physical Exam: Constitutional: No acute distress HEENT: EOMI, PERRLA Respiratory system: Decreased air entry bilaterally, no wheeze, no rhonchi, positive crackles bilateral lower lobes, more on the right side, questionable Velcro like CVS: S1-S2 positive, no murmurs or gallops Abdomen: Soft, nontender, nondistended, positive bowel sounds x4 Extremities: +2 pulses bilaterally radialis/ dorsalis pedis, no cyanosis, no edema Neuro: Awake alert oriented x3 Psych: Normal mood and affect G/U: No Wilkes Skin: no rashes, warm and dry Lymphatic: no cervical or axillary lymphadenopathy Results & Data Results & Data Vital Signs (Past 12 Hours) Vital Signs Temp Pulse Pulse Resp BP Pulse Ox O2 Del Method 05/15/24 09:55 Room Air 05/15/24 08:16 36.6 C 87 17 120/66 93 Room Air 05/15/24 07:19 80 05/15/24 07:18 84 16 96 Room Air 05/15/24 04:24 36.5 C 81 18 118/68 92 Room Air 05/14/24 23:24 36.6 C 86 18 115/64 94 Room Air Laboratory Results 05/15/24 06:05 05/15/24 06:05 PG Care Time/CCT Total # of Minutes Spent Total Time Spent with Patient: Total time spent is greater than 50% in coordination of care (as documented) at patient's floor/unit and/or counseling patient: Coding Level of Care Code 29678 SUB INP/OBS CARE 3/50MIN Diagnoses Acute dyspnea R06.00 SOB (shortness of breath) R06.02 Small cell carcinoma of lower lobe of right lung C34.90 Laterality: unspecified laterality Lung location: unspecified part of lung Metastatic cancer to brain C79.31 COPD with emphysema J43.9
[2024-05-15] MEDS: PANTOprazole 40 MG TAB PO SCH (11:08)
[2024-05-15 11:35] VITALS: BP 127/70; PULSE 89; RESP 18; TEMP 97.5; O2SAT 94
--- NOTE | 2024-05-15 14:32 | Discharge Summary ---
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 He is also positive for enterorhinovirus. #Pneumonitis/episodic SOB/metastatic Small Cell Lung Cancer/enterorhinovirus/COPD-RLL small cell carcinoma, stage [id number], with bone and brain metastases s/p whole brain radiation 05/06/24 and right lung radiation 03/04/24, on maintenance atezolizumab. Presents with 3 weeks of discrete episodes of dyspnea, pulse ox normal, CXR negative for acute findings. Repeat chest CT 05/14 shows acute pneumonitis/early pneumonia in the right lung, atelectasis RML, trace right pleural effusion, stable subpleural right lower lobe lesion. Respiratory biofire positive for entero/rhinovirus, but does not seem to be very ill from this. No evidence of sepsis. Differential includes radiation pneumonitis, bronchospasm, mucus plugging, CHF/PND, or side effect of Tecentriq induced pneumonitis. He felt better with starting hypertonic saline nebs along with scheduled DuoNebs, and now even better after starting high-dose steroids Most likely has immunotherapy induced pneumonitis Echocardiogram normal, BNP normal, no evidence of volume overload -Appreciate pulmonology consultation-with pneumonitis-started high-dose steroids with prednisone 60 Mg p.o. twice daily-discharged home on prednisone 40 Mg p.o. twice daily x 10 days and then decrease by 10 mg daily each week-he discussed this with the oncologist who will manage the prednisone taper. -Complete a 5-day course of azithromycin 500 mg p.o. once daily for atypical coverage -Continue flutter valve, scheduled hypertonic saline nebs, and add on Perforomist and budesonide twice daily on discharge. Also added Incruse Ellipta for LAMA -Add on Bactrim DS 1 tab on Wednesdays and Fridays while on high-dose steroids -Needs follow-up chest CT in 2 [id number]-[id number]-bz with pulmonology in 1 to 2 months -Follow-up with oncology as Tecentriq will be discontinued and will need alternative treatment #Hyperglycemia/Type 2 Diabetes Mellitus-blood sugars remain labile-some high and some low but mostly elevated with high-dose steroids -Added on Lantus 10 units once daily at bedtime to his NovoLog sliding scale at home -Follow-up with PCP -Continue gabapentin and duloxetine recently started for neuropathy #Hyponatremia-Sodium 1 30-, likely from pulmonary process-stable -Follow BMP as an outpatient #Hypertension-BPs are controlled -Continue lisinopril #Rash at Left Thoracic Region-Per patient and his , has had rash intermittently for 30 years, but seems worse lately. It does appear to be similar to herpes zoster rash. He has never seen a hematology specialist -Responds well to hydrocortisone cream, notes itching -Recommend dermatology follow-up after discharge #Thrombocytopenia-possibly due to chemotherapy and immunotherapy? Platelets in the 60s and stable -Follow-up with oncology -follow CBC as an outpatient DVT prophylaxis-SCDs, Lovenox Disposition-DC to home Notes For Next Care Provider Needs follow-up chest CT in 2 months Medication Changes From Visit See list Admission HPI Per Admitting Provider Stuart Toribio is a 74 year-old male who presents today for worsening shortness of breath. His medical history is significant for small cell lung cancer with metastases to the brain and bone, T2DM. Patient presents with several weeks of episodic shortness of breath. Notes that 3 weeks ago he finished radiation for brain metastasis on 05/01/24, had previously completed palliative radiation therapy to right lung on 03/04/24. After starting radiation treatment of the brain metastases, was started on IV dexamethasone which was later transitioned to oral dexamethasone. Secondary to these steroid therapies, patient became more hyperglycemic and was started on insulin therapy by endocrinology on 04/24/24. Around this time period, patient has become more short of breath. Notes that his SOB will largely come in episodes which last for seconds up to 1 minute in duration and resolve spontaneously. Patient states that he will have his "slap him on the back" which seems to help stop the episode. This happens several times per day and can even awaken him from his sleep. He was evaluated in the ED on 05/06/24 and was discharged on cefdinir and doxycycline for treatment of pneumonia- this antibiotic regimen was later switched to Levaquin by oncology (was also started on Medrol Dosepak by oncology at same time). Has not had any change in symptoms since starting the antibiotics or the oral steroi ds. Denies changes in symptoms when laying down vs sitting upright. Notes some diarrhea with the antibiotics, although that has since resolved. Denies any nasal congestion/drainage/sore throat. Patient states that he called his oncologist today due to frustration that these episodes have not stopped, he was told to come to the ED for evaluation for bronchoscopy by pulmonology. ED Course: -EKG -CBC, CMP, procal, BNP -Chest x-ray Discharge Exam Constitutional WD/WN, vitals as above Respiratory normal respiratory effort Auscultation: + crackles (Bibasilar); no rhonchi and no wheezes Cardiovascular RRR, no murmur, no edema Gastrointestinal (Abdomen) normal bowel sounds, soft, nontender, no hepatosplenomegaly Psychiatric A+Ox3, euthymic affect Discharge Plan Discharge Items Patient Disposition: Home - Self-Care Reason For Visit: SHORTNESS OF BREATH Discharge Diagnosis: Pneumonitis Condition on Discharge: Fair Activity: Resume your previous activity Non-emergency contact: Primary Care Provider, Oncologist and Contingents Supervisor Call non-emergency contact if: you have any medication questions and your symptoms worsen Follow-up/Referrals: Alir[facility] Rojas [facility], [facility] [Physician] - (Please follow-up in 1-2 months) Adonis Amaya [Primary Care Provider] - (Please follow-up within 1 to 2 weeks) Caryl Munoz MD [Physician] - (Please follow-up within 2 weeks) Diet: Regular Addtl Attending Provider Instructions: You were admitted with shortness of breath which is coming from inflammation in the lungs called pneumonitis. This may have been caused by your immunotherapy medication for your cancer. You will stop taking this medication and follow-up with your oncologist to determine the plan for further treatment of your cancer. In the meantime, you will be started on high doses of prednisone 40 Mg by mouth twice a day x 10 days, then this will be decreased by 10 mg daily, each week. While you are on the prednisone, you will need to take Bactrim 1 tablet every Monday, Monday, and Monday to help prevent lung infections. Please finish out 3 more days of an antibiotic called azithromycin 500 mg tablets once daily. You will also be started on 3 nebulized medications to be used twice a day- budesonide, hypertonic saline, and formoterol. You are also being started on a once daily inhaler called Incruse Ellipta. You will need a follow-up chest CT scan in 2 months and you can follow-up with the tension worker to have this arranged. While you are on the high doses of prednisone, your blood sugars have been quite elevated. In addition to the short acting insulin with meals, a long-acting once daily insulin called Lantus will be added to your regimen. This will be 10 units once a day at bedtime. Pending Studies at Discharge: No Stand-Alone Forms: [facility], Smoking Cessation Medications and DC Order Prescriptions: New azithromycin 500 mg tablet 500 mg PO DAILY 3 Days Qty: 3 0RF formoterol fumarate [Perforomist] 20 mcg/2 mL Solution For Nebulization 20 mcg NEB BIDR Qty: 120 0RF sodium chloride 7 % Solution For Nebulization 4 ml NEB BIDR Qty: 240 0RF pantoprazole 40 mg Tablet,Delayed Release (Dr/Ec) 40 mg PO QAM Qty: 30 0RF budesonide 0.25 mg/2 mL Suspension For Nebulization 0.25 mg NEB BIDR Qty: 120 0RF insulin glargine 100 unit/mL (3 mL) insulin pen 10 unit subcut HS Qty: 15 0RF prednisone 10 mg tablet 40 mg PO BID Qty: 200 0RF Rx Instructions: X 10 days, then decrease by 10 mg daily every week sulfamethoxazole-trimethoprim [Bactrim DS] 800-160 mg tablet 1 tab PO DAILY Qty: 12 0RF Rx Instructions: On Monday, Monday, Monday umeclidinium 62.5 mcg/actuation blister with device 1 inh inhalation DAILY Qty: 30 0RF Continued Jardiance 10 mg tablet 10 mg PO [id number] Rx Instructions: Mon/Mon/Mon lorazepam 1 mg tablet 1 mg PO DAILY PRN (Reason: anxiety) Qty: 2 0RF Rx Instructions: Take 2 tabs one hour before MRI memantine 5 mg tablet 5 mg PO DAILY Qty: 70 0RF Rx Instructions: As directed. Instruction sheet given to the patient. Instruction sheet will be sent to the pharmacy. (DME) pen needle, diabetic 32 gauge x 5/32" needle See Rx Instructions miscellaneous .MEDSUPPLY Qty: 50 3RF Rx Instructions: Inject 1x a day insulin aspart U-100 [Novolog FlexPen U-100 Insulin] 100 unit/mL (3 mL) insulin pen 1 sliding scale dose subcut USEASDIRECTD MDD 16 Qty: 15 1RF Rx Instructions: To inject before 3 meals based on pre meal sliding scale. Target of 150/50 (DME) pen needle, diabetic 32 gauge x 5/32" needle See Rx Instructions .ROUTE .MEDSUPPLY Qty: 100 1RF Rx Instructions: Inject up to 4x a day with new pen needle gabapentin 600 mg tablet 600 mg PO QAM gabapentin 600 mg tablet 1,200 mg PO HS ascorbate calcium (vitamin C) 500 mg tablet 500 mg PO QAM ergocalciferol (vitamin D2) [Vitamin D2] 1,250 mcg (50,000 unit) capsule 50,000 unit PO Q7D duloxetine 20 mg capsule,delayed release(DR/EC) 20 mg PO DAILY albuterol sulfate 90 mcg/actuation HFA aerosol inhaler 2 inh inhalation Q6H PRN (Reason: shortness of breath or wheezing) Qty: 8.5 0RF lisinopril 2.5 mg tablet 2.5 mg PO QAM Discontinued lorazepam 1 mg tablet 1 mg PO ONCE Qty: 30 0RF Rx Instructions: Take three pill one hour prior to each radiation treatment. benzonatate 100 mg capsule 100 mg PO TID PRN (Reason: Cough) levofloxacin [Levaquin] 500 mg Tablet 500 mg PO DAILY Rx Instructions: Start Date 05/09/24 x7 day supply methylprednisolone [Medrol (Angel)] 4 mg Tablets,Dose Pack See Rx Instructions .ROUTE .COMPLEX Rx Instructions: Take as per package instructions. Start Date 05/09/24 x6 day supply Discharge Orders: Discharge Order (Routine); Ordered 05/15/24 Ordered By: Pita Martin Admission Data Admit Date/Time: 05/13/24 19:06 Attending Provider: Pita Martin Admit Provider: Jeri Heredia Primary Care Provider: Adonis Amaya Other Providers: Pita Martin; Alirio Rojas Hospital Stay Data Consultations 05/13/24 17:01 ED Decision to Admit Stat 05/13/24 21:28 Consult Pulmonology Routine Diagnostic Imagining Performed 05/14/24 12:36 CT chest diagnostic wo con Routine Echo cardiogram Pending Results Patient Have Any Pending Studies at Discharge: No Discharge Instructions Given to Patient (Per Discharging Provider) You were admitted with shortness of breath which is coming from inflammation in the lungs called pneumonitis. This may have been caused by your immunotherapy medication for your cancer. You will stop taking this medication and follow-up with your oncologist to determine the plan for further treatment of your cancer. In the meantime, you will be started on high doses of prednisone 40 Mg by mouth twice a day x 10 days, then this will be decreased by 10 mg daily, each week. While you are on the prednisone, you will need to take Bactrim 1 tablet every Monday, Monday, and Monday to help prevent lung infections. Please finish out 3 more days of an antibiotic called azithromycin 500 mg tablets once daily. You will also be started on 3 nebulized medications to be used twice a day- budesonide, hypertonic saline, and formoterol. You are also being started on a once daily inhaler called Incruse Ellipta. You will need a follow-up chest CT scan in 2 months and you can follow-up with the tension worker to have this arranged. While you are on the high doses of prednisone, your blood sugars have been quite elevated. In addition to the short acting insulin with meals, a long-acting once daily insulin called Lantus will be added to your regimen. This will be 10 units once a day at bedtime. Total Time Total Time Spent Total Time Spent (In Minutes): 40 minutes Total Time Includes: Examination of the Patient, Discharge Planning, Medication Reconciliation and Communication With Other Providers Coding Level of Care Code 89509 INP/OBS DISCH >30 MIN Diagnoses Pneumonitis J98.4 Acute hyperglycemia R73.9 Type 2 diabetes mellitus E11.9 Metastatic cancer to brain C79.31
[2024-05-15] MEDS ORDERED: LANTUS PER UNIT CHARGE SQ SCH (21:00)
[2024-05-15] MEDS ORDERED: predniSONE 20 MG TAB PO SCH (21:00)
== END 2024-05-15 15:44 | disposition home or self-care (01) ==
LOC: SUATTDRO → 4W 14:28 → ED 14:28 → 4W 21:23

== ENCOUNTER 2024-06-29 09:50 | Inpatient (IN) ==
[2024-06-29] MEDS: SODIUM CHLORIDE 0.9% 500 ML IV ONE (10:26)
[2024-06-29] MEDS: dexAMETHasone**PF** 10 MG/ML VIAL IV ONE (10:30)
[2024-06-29 10:46] LABS: Hematocrit (blood only) 36.5 % (42.0-52.0); Hemoglobin 12.3 g/dl (14.0-18.0); Mean Corpuscular Hemoglobin 30.3 pg (25.0-34.0); Mean Corpuscular Hgb Conc 33.7 g/dL (32.0-36.0); Mean Corpuscular Volume 89.9 fL (80.0-100.0); Nucleated RBC # (auto) 0.06 K/uL (0.00-0.12); Nucleated RBC % (auto) 0.5 %; Platelet Count 49 K/uL (130-400); RDW Coefficient of Variation 24.1 % (11.5-14.5); RDW Standard Deviation 77.2 fL (36.4-46.3); Red Blood Count 4.06 M/uL (4.70-6.10); White Blood Count 11.97 K/ul (4.8-10.8)
--- NOTE | 2024-06-29 10:55 | Emergency Department Note ---
Impression & Plan Elevated bilirubin, Jaundice, RUQ abdominal pain, Medication reaction, Hypokalemia ED Provider Note NAME: MARIUSZ CERNA AGE: 74 SEX: M : 1950 ARRIVES VIA: Walk-In INFORMANT: [Patient][family] ED PROVIDER(S): [Everardo Clayton MD] CHIEF COMPLAINT: Abnormal laboratories HISTORY OF PRESENT ILLNESS: The patient is a 74-year-old male who presents to the ER with abnormal laboratories. For the last week, his family has noticed a yellow discoloration to his skin. He had lab work done earlier in the week that showed a higher bilirubin. He had a liver ultrasound that showed no gallstones and no evidence for acute surgical pathology. He has some repeat liver testing done a day or so ago and his bilirubin had climbed significantly to 10, he was referred to the ER. The table assembler metal/oncologist believes he is having a reaction to his immunotherapy. The patient by report requires hospitalization, IV steroids and IVIG. The patient does have some epigastric and right upper quadrant abdominal pain. The area just feels a bit sore. No nausea or vomiting. No fever, no cough or congestion. PMHx/PSHx/Social Hx: See Below PHYSICAL EXAM: GENERAL: Patient is in no acute distress. HEENT: No acute trauma, normocephalic atraumatic, mucous membranes moist, no nasal congestion. NECK: No stridor, no adenopathy, no meningismus, trachea is midline. LUNGS: Clear to auscultation bilaterally, no wheeze, no rhonchi, breath sounds equal. HEART: Without murmurs gallops or rubs, regular rate and rhythm. ABDOMEN: Soft, mildly tender in the right upper quadrant. EXTREMITIES: No cyanosis, full range of motion of all the joints without pain or difficulty. NEUROLOGIC: Oriented x 3, no acute motor or sensory deficits, no focal weakness. SKIN: Moderate jaundice, no diaphoresis. DIFFERENTIAL DIAGNOSIS: Medication reaction, jaundice, electrolyte imbalance, renal or liver failure, among others. EMERGENCY DEPARTMENT PROCEDURES: MEDICAL DECISION MAKING: There is a mild leukocytosis, this certainly could be consistent with infection or just the stress of his presentation. There was a subtle anemia noted. The anemia was baseline looking back at recent testing. The patient did have a low platelet count, this is baseline as well looking back at recent testing. No coagulopathy. Potassium somewhat low at 3.2. No renal failure. Liver enzymes were quite elevated, the bilirubin was 13.6. The patient appeared to be in a euthyroid state. On exam, the patient was jaundiced. He did have some discomfort with palpation of the right upper quadrant. He was not toxic or febrile. Patient was given IV Decadron, he received a 500 cc saline bolus, he was given IV potassium. I did speak with hematology oncology. The patient will require a hospital stay, IV steroids, IVIG. He is likely having a reaction from his immunotherapy. I did speak with the patient and family, I did speak with the case supervisor. The on-call hospitalist was consulted. Prior/Outside records/notes reviewed: Recent previous outpatient laboratory results showing a rising bilirubin. Imaging/x-ray results per my interpretation: Chronic Medical/Social conditions affecting care: Advanced age, cancer history. Care/Management discussed with: Case management, the on-call hospitalist. Hematology oncology-Dr. Munoz Level of care consideration(s): After review of the information above and other included data: --I believe the patient requires escalation of care to admission DISPOSITION: Admission Past Med/Surg History Problem List (Updated 06/29/24 @ 13:24 by Everardo Clayton MD) Hypokalemia (Acute) Medication reaction (Acute) RUQ abdominal pain (Acute) Jaundice (Acute) Elevated bilirubin (Acute) Jaundice Transaminitis Loss of protective sensation of skin of foot Peripheral neuropathy Pneumonitis COPD with emphysema Thrombocytopenia (Acute) Acute hyperglycemia (Acute) Pneumonia (Acute) Type 2 diabetes mellitus Weakness (Acute) Metastatic cancer to brain (Acute) Lumbosacral facet joint syndrome Lumbar back pain Small cell lung cancer (Chronic 10/24/23) Penile anomaly Medical History Hypertension History of pneumonia 09/28/23 > rx'd inhalers, abx, prednisone Spinal stenosis Hyperlipidemia Diabetes mellitus Hx of colonic polyps Mass of right lung Surgical History History of cataract surgery Left eye Hx of colonoscopy with polypectomy History of tonsillectomy History of lumbar surgery (2018) L5-S1 Family History Mother , 101 Diabetes Natural with unknown cause Father , in his 80s Stroke Myocardial infarction Diabetes Brother No problems noted. Brother No problems noted. Brother Overdose Son No problems noted. Son No problems noted. 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 How many Children do You have: 2 Feels Safe at Home: Yes Diet: regular caffeine: Yes (1 cup/day) during the past year weight has: remained stable Assistive Devices: Cane Allergies Allergies Allergy/AdvReac Type Severity Reaction Status Date / Time oxycodone AdvReac Intermediate Syncope Verified 06/11/24 14:19 tramadol AdvReac Intermediate Dizziness Verified 06/11/24 14:19 betamethasone AdvReac Mild Lower Verified 06/11/24 14:19 extremity numbness/pain Home Meds Home Medications Medication Instructions Recorded Confirmed ascorbate calcium (vitamin C) 500 500 mg PO QAM 10/10/23 06/29/24 mg tablet gabapentin 600 mg tablet 1,200 mg PO HS 10/10/23 06/29/24 gabapentin 600 mg tablet 600 mg PO QAM 10/10/23 06/29/24 empagliflozin 10 mg tablet 10 mg PO 3XWK 01/30/24 06/29/24 (Jardiance) ergocalciferol (vitamin D2) 1,250 50,000 unit PO Q7D 04/24/24 06/29/24 mcg (50,000 unit) capsule (Vitamin D2) lisinopril 2.5 mg tablet 2.5 mg PO QAM 05/13/24 06/29/24 ondansetron 8 mg disintegrating 8 mg PO Q8H PRN Nausea 06/29/24 06/29/24 tablet prochlorperazine maleate 10 mg 10 mg PO Q6H PRN Nausea 06/29/24 06/29/24 tablet Previous Rx's Medication Instructions Recorded lorazepam 1 mg tablet 1 mg PO DAILY PRN anxiety #2 tabs 04/02/24 albuterol sulfate 90 mcg/actuation 2 inh inhalation Q6H PRN shortness 05/06/24 aerosol inhaler of breath or wheezing #8.5 grams budesonide 0.25 mg/2 mL suspension 0.25 mg (2 mL) NEB BIDR #120 mL 05/15/24 for nebulization formoterol fumarate 20 mcg/2 mL 20 mcg (2 mL) NEB BIDR #120 mL 05/15/24 solution for nebulization (Perforomist) insulin glargine 100 unit/mL (3 10 unit (0.1 mL) subcut HS #15 mL 05/15/24 mL) subcutaneous pen pantoprazole 40 mg tablet,delayed 40 mg PO QAM #30 tabs 05/15/24 release sodium chloride 7 % for 4 ml NEB BIDR #240 mL 05/15/24 nebulization umeclidinium 62.5 mcg/actuation 1 inh inhalation DAILY #30 ea 05/15/24 blister powder for inhalation memantine 10 mg tablet 10 mg PO BID #60 tabs 05/20/24 duloxetine 30 mg capsule,delayed 30 mg PO DAILY #90 caps 06/11/24 release (Cymbalta) pen needle, diabetic 32 gauge x #100 ea 06/11/24" insulin aspart U-100 100 unit/mL 1 sliding scale dose subcut TID 06/18/24 (3 mL) subcutaneous pen (Novolog #18 mL FlexPen U-100 Insulin aspart) Results & Data (ED) Vital Signs Vital Signs - 24 hr 06/29/24 09:53 06/29/24 10:25 06/29/24 10:34 Temperature 36.9 C Temperature Source Temporal Artery Scan Pulse Rate 109 H 94 H Pulse Rate [Apical] 95 H Pulse Rhythm [Apical] Pulse Strength [Apical] Respiratory Rate 18 20 Respiratory Effort / Characteristics Non-Labored Spontaneous Non-Labored Respiratory Depth Normal Normal Respiratory Pattern Regular Blood Pressure 119/71 Blood Pressure [Right Arm] 129/77 Blood Pressure Mean 87 Blood Pressure Mean [Right Arm] 94 Pulse Oximetry 94 94 Oxygen Delivery Method Room Air Room Air Sepsis Recent Fever Within 48 Hours No Sepsis New/Unexplained Change in Mental Status N/A Sepsis Action Taken by Nursing No Action Required 06/29/24 12:12 Temperature Temperature Source Pulse Rate Pulse Rate [Apical] 92 H Pulse Rhythm [Apical] Regular Pulse Strength [Apical] Normal Respiratory Rate 20 Respiratory Effort / Characteristics Non-Labored Spontaneous Respiratory Depth Normal Respiratory Pattern Blood Pressure Blood Pressure [Right Arm] 160/89 H Blood Pressure Mean Blood Pressure Mean [Right Arm] 112 Pulse Oximetry 94 Oxygen Delivery Method Room Air Sepsis Recent Fever Within 48 Hours Sepsis New/Unexplained Change in Mental Status Sepsis Action Taken by Retirement Medications Current Medication List: was personally reviewed by me Laboratory Data Attestation: I reviewed the patient's lab results. 06/29/24 10:27 06/29/24 10: Lab Results 06/29/24 Range/Units 10:27 WBC 11.97 H (4.8-10.8) K/ul RBC 4.06 L (4.70-6.10) M/uL Hgb 12.3 L (14.0-18.0) g/dl Hct 36.5 L (42.0-52.0) % MCV 89.9 (80.0-100.0) fL MCH 30.3 (25.0-34.0) pg MCHC 33.7 (32.0-36.0) g/dL RDW Std Deviation 77.2 H (36.4-46.3) fL RDW Coeff of Angela 24.1 H (11.5-14.5) % Plt Count 49 L (130-400) K/uL Immature Gran % (Auto) 8.4 % Neut % (Auto) 77.5 % Lymph % (Auto) 3.9 % [place] % (Auto) 8.6 % Eos % (Auto) 1.3 % Baso % (Auto) 0.3 % Neut # (Auto) 9.27 H (1.40-6.50) K/uL Lymph # (Auto) 0.47 L (1.20-3.40) K/uL [place] # (Auto) 1.03 H (0.11-0.59) K/uL Eos # (Auto) 0.16 (0.00-0.50) K/uL Baso # (Auto) 0.04 (0.00-0.20) K/uL Immature Gran # (Auto) 1.00 H (0.01-0.20) K/uL Absolute Nucleated RBC 0.06 (0.00-0.12) K/uL Nucleated RBC % (auto) 0.5 % Polychromasia 2+ Poikilocytosis Present Anisocytosis Present PT 11.5 (9.0-12.0) Seconds INR 1.1 (0.9-1.1) APTT 22 (21-31) Seconds PTT Ratio 0.8 Sodium 135 L (136-145) mmol/L Potassium 3.2 L (3.5-5.1) mmol/L Chloride 98 (98-107) mmol/L Carbon Dioxide 36 H (21-32) mmol/L Anion Gap 1 L (3-11) BUN 21 (6-23) mg/dl Creatinine 0.84 (0.6-1.4) mg/dl Est Cr Clr Drug Dosing 92.4 ml/min eGFR 92.65 BUN/Creatinine Ratio 25.0 H (10-20) Glucose 156 H (70-99(Fasting)) mg/dl Calcium 8.3 L (8.6-10.3) mg/dl Magnesium 1.9 (1.7-2.4) mg/dl Total Bilirubin 13.6 H (0.2-1.0) mg/dl Direct Bilirubin 8.1 H (0-0.2) mg/dl AST 297 H (13-39) U/L ALT 442 H (7-52) U/L Alkaline Phosphatase 460 H (34-104) U/L Total Protein 4.9 L (6.0-8.3) gm/dl Albumin 3.2 L (3.4-5.0) gm/dl Globulin 1.7 L (2.5-4.0) gm/dl Albumin/Globulin Ratio 1.9 (0.9-2) TSH 1.239 (0.300-4.500) uIu/ml Administered Medications Discontinued Medications Dexamethasone Sodium Phosphate (DexamethasonePf 10 Mg/Ml Vial) 10 mg IV NOW ONE Stop: 06/29/24 10:19 Last Admin: 06/29/24 10:30 Dose: 10 mg Documented By: MISAEL Sodium Chloride (Nss) 500 mls @ 999 mls/hr IV .Q31M ONE Stop: 06/29/24 10:22 Last Infusion: 06/29/24 10:59 Dose: Infused Documented By: Admin: 06/29/24 10:26 Dose: 999 mls/hr Documented By: MISAEL Potassium Chloride (K Redd / Wtr) 10 meq in 100 mls @ 100 mls/hr IV ONE ONE Stop: 06/29/24 12:19 Last Infusion: 06/29/24 12:47 Dose: Infused Documented By: Admin: 06/29/24 11:34 Dose: 100 mls/hr Documented By: BEATRICE Discharge Plan Visit Data Chief Complaint: Abnormal Labs/Diagnostic Testing Stated Complaint: ABN LABS, LIVER ENZYMES HIGH ED Provider: Everardo Clayton Discharge Problem: Elevated bilirubin, Jaundice, RUQ abdominal pain, Medication reaction, Hypokalemia Patient Disposition: Admitted As Inpatient Condition: Fair Discharge Instructions Interventions: ED Discharge Assessment Last Done: 06/29/24 13:18 Forms Stand Alone Forms: [facility] [email or web address], Important Visit Information Prescriptions Prescriptions: No Action Jardiance 10 mg tablet 10 mg PO 3XWK Rx Instructions: Mon/Wed/Fri lorazepam 1 mg tablet 1 mg PO DAILY PRN (Reason: anxiety) Qty: 2 0RF Rx Instructions: Take 2 tabs one hour before MRI memantine 10 mg tablet 10 mg PO BID Qty: 60 5RF insulin aspart U-100 [Novolog FlexPen U-100 Insulin] 100 unit/mL (3 mL) insulin pen 1 sliding scale dose subcut TID MDD 60 units Qty: 18 3RF Rx Instructions: To inject before 3 meals based on pre meal sliding scale. Target of 150/50 gabapentin 600 mg tablet 600 mg PO QAM gabapentin 600 mg tablet 1,200 mg PO HS ascorbate calcium (vitamin C) 500 mg tablet 500 mg PO QAM Rx Instructions: UNABLE TO CONFIRM WITH PATIENT (DME) pen needle, diabetic 32 gauge x 5/32" needle See Rx Instructions .ROUTE .MEDSUPPLY Qty: 100 3RF Rx Instructions: Inject up to 4x a day with new pen needle duloxetine [Cymbalta] 30 mg capsule,delayed release(DR/EC) 30 mg PO DAILY Qty: 90 3RF Rx Instructions: Take one capsule by mouth once a day. ergocalciferol (vitamin D2) [Vitamin D2] 1,250 mcg (50,000 unit) capsule 50,000 unit PO Q7D prochlorperazine maleate 10 mg tablet 10 mg PO Q6H PRN (Reason: Nausea) ondansetron 8 mg tablet,disintegrating 8 mg PO Q8H PRN (Reason: Nausea) albuterol sulfate 90 mcg/actuation HFA aerosol inhaler 2 inh inhalation Q6H PRN (Reason: shortness of breath or wheezing) Qty: 8.5 0RF lisinopril 2.5 mg tablet 2.5 mg PO QAM formoterol fumarate [Perforomist] 20 mcg/2 mL Solution For Nebulization 20 mcg NEB BIDR Qty: 120 0RF sodium chloride 7 % Solution For Nebulization 4 ml NEB BIDR Qty: 240 0RF pantoprazole 40 mg Tablet,Delayed Release (Dr/Ec) 40 mg PO QAM Qty: 30 0RF budesonide 0.25 mg/2 mL Suspension For Nebulization 0.25 mg NEB BIDR Qty: 120 0RF insulin glargine 100 unit/mL (3 mL) insulin pen 10 unit subcut HS Qty: 15 0RF umeclidinium 62.5 mcg/actuation blister with device 1 inh inhalation DAILY Qty: 30 0RF Referrals Referrals: Nara Amaya MD [Primary Care Provider] - Discharge Problem: Medication reaction Qualifiers: Encounter type: initial encounter Qualified Code(s): T50.905A - Adverse effect of unspecified drugs, medicaments and biological substances, initial encounter
[2024-06-29 11:06] LABS: Albumin Globulin Ratio 1.9 (0.9-2); Albumin Level 3.2 gm/dl (3.4-5.0); Bilirubin,Total 13.6 mg/dl (0.2-1.0); Calcium 8.3 mg/dl (8.6-10.3); Creatinine Clr Calc Pharmacy 92.4 ml/min; Globulin 1.7 gm/dl (2.5-4.0); Magnesium 1.9 mg/dl (1.7-2.4); Potassium 3.2 mmol/L (3.5-5.1); Total Protein 4.9 gm/dl (6.0-8.3)
[2024-06-29 11:07] LABS: Anisocytosis Present; Basophils # (auto) 0.04 K/uL (0.00-0.20); Basophils % (auto) 0.3 %; Eosinophils # (auto) 0.16 K/uL (0.00-0.50); Eosinophils % (auto) 1.3 %; Immature Granulocytes % (auto) 8.4 %; Lymphocytes # (auto) 0.47 K/uL (1.20-3.40); Lymphocytes % (auto) 3.9 %; Monocytes # (auto) 1.03 K/uL (0.11-0.59); Monocytes % (auto) 8.6 %; Neutrophils # (auto) 9.27 K/uL (1.40-6.50); Neutrophils % (auto) 77.5 %; Poikilocytosis Present; Polychromasia 2+
[2024-06-29 11:08] LABS: INR 1.1 (0.9-1.1); Partial Thromboplastin Ratio 0.8; Partial Thromboplastin Time 22 Seconds (21-31); Prothrombin Time 11.5 Seconds (9.0-12.0)
[2024-06-29 11:20] LABS: Thyroid Stimulating Hormone 1.239 uIu/ml (0.300-4.500)
[2024-06-29] MEDS: POTASSIUM CHLORIDE / WTR 10 MEQ/100 ML PLCT IV ONE (11:34)
--- NOTE | 2024-06-29 11:36 | History & Physical Report ---
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 Munoz. Tbili increased to 13 with Direct bili of 8. Admitted for MRCP, IVIG and high dose steroids. #Transaminitis | Jaundice | Immunotherapy reaction Discussed with Dr. Munoz, suspect from recent treatment - recommends methylpred 1g daily x 3 days, IVIG 1g/kg/day x 2 days. - also suspects elevated WBC from chronic high dose steroid use for recent pneumonitis T.Bili has uptrending from 3.8 --> 13.6 this week. Direct Bili 8. MRCP ordered. LFTs also increasing AST 297 / ALT 442 / ALK phos 460 - continue to trend Recent hepatitis panel negative. RUQ US / mild cirrhosis, no stones, no obstruction. pain control: does not tolerate opioids, avoid tylenol with LFTs. Plan for IV toradol prn AM CBC and CMP #Hypokalemia 3.2 on admission, given 10meq IV. Give additional 20meq PO AM BMP and Mag #DMT2 Home meds: empagofloxin, 10 units Lantus HS + SSI - HELD With associated neuropathy - continue gabapentin pharmacy glycemic consult with high dose steroids #Lung CA continue nebs/inhalers #HTN - continue lisinopril #Mental health - continue duloxetine, prn ativan Dispo: admit to med/surg DVT proh: SCDs with plts < 50 CODE STATUS: DNR/DNI updated at bedside 06/[address] 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 Was sent in by Dr. Munoz. Had outpatient ultrasound monday without obstruction, mild cirrhosis. Patient seen in ER C10, present at bedside. reports chronic pain all over - does not take anything at home for this. Reports not tolerating narcotics well. Worsening abdominal pain this week. Poor appetite since weaning down his steroids. Overall reports not feeling well - frustrated with memory problems, poor energy and weakness. Last onc treatment was ~ 2 months ago prior to last admissions, May treatment held off waiting information/workup from [place] and June treatment not given due to low counts. Was given injection on Monday that he reports was to help boost his platelets. #ED course: Dexamethasone 10mg IV x1 NSS 500mL x1 Potassium 10meq IV x 1 Allergies Allergy/AdvReac Type Severity Reaction Status Date / Time oxycodone AdvReac Intermediate Syncope Verified 06/11/24 14:19 tramadol AdvReac Intermediate Dizziness Verified 06/11/24 14:19 betamethasone AdvReac Mild Lower Verified 06/11/24 14:19 extremity numbness/pain Home Medications Medication Instructions Recorded Confirmed Type ascorbate calcium (vitamin C) 500 500 mg PO QAM 10/10/23 06/29/24 History mg tablet gabapentin 600 mg tablet 1,200 mg PO HS 10/10/23 06/29/24 History gabapentin 600 mg tablet 600 mg PO QAM 10/10/23 06/29/24 History empagliflozin 10 mg tablet 10 mg PO 3XWK 01/30/24 06/29/24 History (Jardiance) lorazepam 1 mg tablet 1 mg PO DAILY PRN anxiety #2 tabs 04/02/24 06/29/24 Rx ergocalciferol (vitamin D2) 1,250 50,000 unit PO Q7D 04/24/24 06/29/24 History mcg (50,000 unit) capsule (Vitamin D2) albuterol sulfate 90 mcg/actuation 2 inh inhalation Q6H PRN shortness 05/06/24 06/29/24 Rx aerosol inhaler of breath or wheezing #8.5 grams lisinopril 2.5 mg tablet 2.5 mg PO QAM 05/13/24 06/29/24 History budesonide 0.25 mg/2 mL suspension 0.25 mg (2 mL) NEB BIDR #120 mL 05/15/24 06/29/24 Rx for nebulization formoterol fumarate 20 mcg/2 mL 20 mcg (2 mL) NEB BIDR #120 mL 05/15/24 06/29/24 Rx solution for nebulization (Perforomist) insulin glargine 100 unit/mL (3 10 unit (0.1 mL) subcut HS #15 mL 05/15/24 06/29/24 Rx mL) subcutaneous pen pantoprazole 40 mg tablet,delayed 40 mg PO QAM #30 tabs 05/15/24 06/29/24 Rx release sodium chloride 7 % for 4 ml NEB BIDR #240 mL 05/15/24 06/29/24 Rx nebulization umeclidinium 62.5 mcg/actuation 1 inh inhalation DAILY #30 ea 05/15/24 06/29/24 Rx blister powder for inhalation memantine 10 mg tablet 10 mg PO BID #60 tabs 05/20/24 06/29/24 Rx duloxetine 30 mg capsule,delayed 30 mg PO DAILY #90 caps 06/11/24 06/29/24 Rx release (Cymbalta) pen needle, diabetic 32 gauge x #100 ea 06/11/24 06/11/24 Rx 5/32" insulin aspart U-100 100 unit/mL 1 sliding scale dose subcut TID 06/18/24 06/29/24 Rx (3 mL) subcutaneous pen (Novolog #18 mL FlexPen U-100 Insulin aspart) ondansetron 8 mg disintegrating 8 mg PO Q8H PRN Nausea 06/29/24 06/29/24 History tablet prochlorperazine maleate 10 mg 10 mg PO Q6H PRN Nausea 06/29/24 06/29/24 History tablet Past Med/Surg History Problem List (Updated 06/29/24 @ 12:34 by Rahel Morfin PA-C) Jaundice Transaminitis Loss of protective sensation of skin of foot Peripheral neuropathy Pneumonitis COPD with emphysema Thrombocytopenia (Acute) Acute hyperglycemia (Acute) Pneumonia (Acute) Type 2 diabetes mellitus Weakness (Acute) Metastatic cancer to brain (Acute) Lumbosacral facet joint syndrome Lumbar back pain Small cell lung cancer (Chronic 10/24/23) Penile anomaly Medical History Hypertension History of pneumonia 09/28/23 > rx'd inhalers, abx, prednisone Spinal stenosis Peripheral neuropathy Hyperlipidemia Diabetes mellitus Hx of colonic polyps Mass of right lung Surgical History History of cataract surgery Left eye Hx of colonoscopy with polypectomy History of tonsillectomy History of lumbar surgery (2018) L5-S1 Family History Mother , 101 Diabetes Natural with unknown cause Father , in his 80s Stroke Myocardial infarction Diabetes Brother No problems noted. Brother No problems noted. Brother Overdose Son No problems noted. Son No problems noted. 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 How many Children do You have: 2 Feels Safe at Home: Yes Diet: regular caffeine: Yes (1 cup/day) during the past year weight has: remained stable Assistive Devices: Cane Review of Systems Review of Systems: All systems reviewed & are unremarkable except as noted in Subjective Physical Exam Physical Exam: General: NAD, VS as above, sitting up in bed, jaundice HEENT: + scleral icterus, trachea midline, MM moist Resp: normal respiratory effort, diminished but no wheezing CV: RRR, no murmur, Abd: normal bowel sounds, mild/moderate RUQ tenderness with deep plaption Extremities: Moves all extremities, trace pitting edema left LE Neuro: A&O x3, Skin: jaundice Results & Data Results & Data Vital Signs (Past 12 Hours) Vital Signs Temp Pulse Pulse Resp BP BP Pulse Ox 06/29/24 10:34 94 H 06/29/24 10:25 95 H 20 129/77 94 06/29/24 09:53 98.4 F 109 H 18 119/71 94 O2 Del Method 05/10/25 10:34 06/29/24 10:25 Room Air 06/29/24 09:53 Room Air Laboratory Results cbc and chemsitry reviewed lfts reviewed coagulation stdies reviewed Supervising Physician Co-Signing Physician Notes Patient seen and examined, chart reviewed, case discussed with Rahel Morfin PA-C and I agree with the assessment and plan as above except as otherwise noted Labs and images reviewed 74yo M with a history of SCLC on chemo/immunotherapy referred to the ER by Onc for transaminitis suspected due to immunotherapy Abd US 06/25/2024 was with mild cirrhotic morphology of the liver, no gallstones or acute cholecystitis was seen. On admission does have a direct bilirubin of 8.1, total bilirubin of 13.6. MRCP is pending to R/L obstructive pathology. Bilirubin is uptrending, transaminitis is uptrending with AST 297/ALT 442/alk phos 460. No fever/chills/sweats. Mild stable leukocytosis of 11.9, has had a mild increase in immature granulocyte count while on high-dose steroids. Had been on high-dose steroids per pulmonology for suspected pneumonitis 04/2024. Monitor closely for infectious symptoms/fevers. No antibiotics currently indicated. No recent GCSF use. SCLC with pleural, bone, possible lung, brain metastasis S/p whole brain radiation History of pneumonitis treated with steroids and taper Completed carboplatin, etoposide, atezolizumab 2023. Maintenance atezoli zumab. Consolidation radiation therapy completed 02/2024. Suspected possible immunotherapy related transaminitis managed as below. Suspected immunotherapy induced transaminitis. -Will admit on 1g Methylpred x3 days and IVIG 1g/kg/day x2 days per oncology recommendations. -DDx includes obstruction. Follow MRCP. N.p.o. until MRCP complete. Seen bedside. No fevers or chills but has had some diffuse abdominal discomfort and right upper abdominal discomfort. Right upper quadrant discomfort has been present since around April. He has had a reduced appetite overall but does not notice that meals have any effect on this discomfort. He is eager to get to a room and to get his MRCP, no other questions at bedside. Agree with above PG Care Time/CCT Total # of Minutes Spent Total Time Spent with Patient: Total time spent is greater than 50% in coordination of care (as documented) at patient's floor/unit and/or counseling patient: Coding Level of Care Code 26220 INT INP/OBS CARE 3/75MIN Diagnoses Transaminitis R74.01 Jaundice R17 Type 2 diabetes mellitus E11.9 Small cell carcinoma of lower lobe of right lung C34.90 Laterality: unspecified laterality Lung location: unspecified part of lung Metastatic cancer to brain C79.31 (4) Small cell lung cancer Laterality: unspecified laterality Lung location: unspecified part of lung Qualified Code(s): C34.90 - Malignant neoplasm of unspecified part of unspecified bronchus or lung
[2024-06-29 12:01] LABS: Bilirubin Direct 8.1 mg/dl (0-0.2)
[2024-06-29] MEDS ORDERED: methylPREDNISolone 10 mg/mL (For Ped Dose < 7mg) IV SCH (12:15)
[2024-06-29] MEDS ORDERED: IMMUNE GLOBULIN (HUMAN) SOLN IV SCH (12:15)
[2024-06-29] MEDS ORDERED: CARBOHYDRATES FOR HYPOGLYCEMIA PO PRN (12:24)
[2024-06-29] MEDS ORDERED: GLUCAGON FOR INJ 1 MG VIAL SQ PRN (12:24)
[2024-06-29] MEDS ORDERED: PHARMACY GLYCEMIC MGMT CONSULT PRN (12:24)
[2024-06-29] MEDS: LORazepam 2 MG/1 ML VIAL IV STA (13:35)
--- NOTE | 2024-06-29 14:08 | Pharmacy Report ---
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 Munoz due to abnormal outpatient labs and admission for MRCP, IVIG and high dose steroids. He received dexamethasone 10 mg IV x 1 in ED and is ordered methylprednisolone 1g IV daily. BSG of 156 mg/dL. Anticipate steroid induced hyperglycemia. * Start weight based + stress 3 Novolog. Basal insulin order to be determined once additional BSG data is available. PLAN FOR INPATIENT GLYCEMIC CONTROL: * Hold outpatient oral diabetes medications * Basal insulin * Lantus 16 units SC x 1 * Reassess on 06/30 * Bolus insulin * NovoLog per scale ACHS or Q6hrs while NPO * Goal Range: Low 110 mg/dL - High 140 mg/dL * Correction Factor: 15 mg/dL/unit * Nutritional / Prandial insulin per carb ratio of 1 unit per 5 grams CHO consumed
[2024-06-29 14:43] LABS: Appearance Urine Clear (Clear); Specific Gravity Urine 1.035 (1.000-1.030)
[2024-06-29 14:45] LABS: Bacteria Urine 1+ (None Seen); Epithelial Cell Urine 0-2 /hpf (0-2); Mucus Urine Present (None Prsent); RBC Urine 0-2 /hpf (0-2); WBC Urine 0-5 /hpf (0-5)
[2024-06-29] MEDS ORDERED: PROCHLORPERAZINE MALEATE 10 MG TAB PO PRN (14:50)
[2024-06-29] MEDS ORDERED: ALBUTEROL HFA 8 GM INHALER INH PRN (14:50)
[2024-06-29] MEDS ORDERED: LORazepam 1 MG TAB PO PRN (14:50)
[2024-06-29] MEDS ORDERED: ONDANSETRON 8MG OD TAB PO PRN (14:50)
[2024-06-29] MEDS ORDERED: MELATONIN 3 MG TAB PO PRN (14:50)
--- NOTE | 2024-06-29 14:56 | Magnetic Resonance Report ---
MRCP of the abdomen: Compared to previous ultrasound dated 06/25/2024. Hepatomegaly with large number of nodules throughout the liver. No biliary dilatation Gallbladder demonstrating no stones. Minimal ascites. Pancreas appears grossly unremarkable. Left adrenal mass measuring 4.1 cm. Kidneys are normal. Pancreas not well-visualized. Spleen is normal in size. Impression Markedly abnormal liver. Macronodular cirrhosis versus metastatic disease. Left adrenal mass. Electronically signed by Rosalia Shaw 06-29-2024 2:55 PM
[2024-06-29] MEDS: POTASSIUM CHLORIDE CRTAB 20 MEQ TABCR PO STA (15:30)
[2024-06-29] MEDS: methylPREDNISolone 1,000 MG in NSS 250 ML IV SCH (16:00)
[2024-06-29] MEDS: INSULIN ASPART PER UNIT CHARGE SC SCH ×2 (16:55→23:37)
[2024-06-29] MEDS: Octagam 10% IVIG 10 gram bottle IV SCH (17:00)
[2024-06-29] MEDS: LANTUS PER UNIT CHARGE SC SCH (17:14)
[2024-06-29] MEDS: Octagam 10% IVIG 20 gram bottle IV SCH (18:49)
[2024-06-29] MEDS: FORMOTEROL 20 MCG/2 ML VIAL NEB SCH (19:49)
[2024-06-29] MEDS: SODIUM CHLOR 7% 4 ML NEB NEB SCH (19:50)
[2024-06-29] MEDS: GABAPENTIN 600 MG TAB PO SCH (20:12)
[2024-06-29] MEDS: MEMANTINE HCL 10 MG TAB PO SCH (20:13)
[2024-06-29] MEDS: BUDESONIDE 0.25 MG/2 ML VIAL (PULMICORT) NEB SCH (20:41)
[2024-06-29] MEDS ORDERED: LANTUS PER UNIT CHARGE SQ SCH (21:00)
[2024-06-29] MEDS ORDERED: NON-FORMULARY MEDICATION (Insulin Glargine 100 unit/mL (3 mL) insulin pen) SQ SCH (21:00)
[2024-06-30 06:44] LABS: Hematocrit (blood only) 30.8 % (42.0-52.0); Hemoglobin 10.3 g/dl (14.0-18.0); Mean Corpuscular Hemoglobin 30.3 pg (25.0-34.0); Mean Corpuscular Hgb Conc 33.4 g/dL (32.0-36.0); Mean Corpuscular Volume 90.6 fL (80.0-100.0); Platelet Count 57 K/uL (130-400); RDW Coefficient of Variation 23.9 % (11.5-14.5); White Blood Count 7.01 K/ul (4.8-10.8)
[2024-06-30 06:49] LABS: Anisocytosis Present; Basophils # (auto) 0.02 K/uL (0.00-0.20); Basophils % (auto) 0.3 %; Eosinophils # (auto) 0.01 K/uL (0.00-0.50); Eosinophils % (auto) 0.1 %; Immature Granulocytes % (auto) 8.6 %; Lymphocytes # (auto) 0.31 K/uL (1.20-3.40); Lymphocytes % (auto) 4.4 %; Monocytes # (auto) 0.35 K/uL (0.11-0.59); Neutrophils # (auto) 5.72 K/uL (1.40-6.50); Neutrophils % (auto) 81.6 %; Polychromasia 1+; Target Cells 1+
[2024-06-30 06:53] LABS: Albumin Globulin Ratio 0.7 (0.9-2); Albumin Level 2.5 gm/dl (3.4-5.0); BUN Creatinine Ratio 23.8 (10-20); Bilirubin Direct 6.9 mg/dl (0-0.2); Bilirubin,Total 10.8 mg/dl (0.2-1.0); Globulin 3.5 gm/dl (2.5-4.0); Magnesium 1.9 mg/dl (1.7-2.4); Potassium 3.3 mmol/L (3.5-5.1)
[2024-06-30] MEDS: lisinopril 2.5 MG TAB PO SCH (07:39)
[2024-06-30] MEDS: GABAPENTIN 600 MG TAB PO SCH (07:39)
[2024-06-30] MEDS: DULoxetine HCL 30 MG CAP PO SCH (07:39)
[2024-06-30] MEDS: UMECLIDINIUM BROMIDE 62.5MCG/BLISTER 7 PUFFS/INHALER INH SCH (07:40)
[2024-06-30] MEDS: PANTOprazole 40 MG TAB PO SCH (07:40)
--- NOTE | 2024-06-30 08:55 | Hospitalist Progress Note ---
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 Munoz. Tbili increased to 13 with Direct bili of 8. Admitted for MRCP, IVIG and high dose steroids. #Transaminitis | Jaundice | Immunotherapy reaction Discussed with Dr. Munoz, suspect from recent treatment - recommends methylpred 1g daily x 3 days, IVIG 1g/kg/day x 2 days. Also suspects elevated WBC from chronic high dose steroid use for recent pneumonitis TECHNOLOGIST INFECTIOUS DISEASE - T.Bili uptrended 3.8 --> 13.6 this week. Direct Bili 8. Downtrending on 06/30 Continue to trend MRCP ordered revealed markedly abnormal liver Macronodular cirrhosis versus metastatic disease LFTs elevated at AST 297 / ALT 442 / ALK phos 460 on admission- continue to trend (currently downtrending) Recent hepatitis panel negative. RUQ US 06/25 mild cirrhosis, no stones, no obstruction. Pain control: does not tolerate opioids, avoid tylenol with LFTs. Plan for IV toradol as needed Continue current regimen of methylprednisolone 1 g and IVIG daily #Hypokalemia Mild; 3.2 on admission S/p 10meq IV. Give additional 20meq PO as needed Trend BMP #T2DM Home meds: empagofloxin, 10 units Lantus HS + SSI - HELD With associated neuropathy - continue gabapentin pharmacy glycemic consult with high dose steroids #Lung CA Continue nebs/inhalers #HTN - continue lisinopril #Mental health - continue duloxetine, prn ativan Dispo: admit to med/surg DVT proh: SCDs with plts < 50 CODE STATUS: DNR/DNI updated at bedside 06/[address] Munoz Admission and Anticipated Discharge Date Admission Date: June 29, 2024 Subjective Mr. Toribio is resting comfortably in bed this morning. He reports he slept well, ate breakfast, and has no new complaints at this time. He still feeling quite weak/tired. Additionally, he does have right upper quadrant abdominal pain which he rates a 3 out of 10 at present. It comes on intermittently, and he declines any pain medicine for it at this time. He reports no side effects from the steroids or current treatment at this time. Other than weakness, and mild RUQ pain, he is largely asymptomatic. ROS: Patient endorses generalized weakness and RUQ abdominal pain. Patient denies fevers, chills, night sweats, dizziness/lightheadedness with ambulation, headaches, chest pain, chest palpitations, SOB, N/V/D, change in urinary or bowel habits, or numbness or tingling in arms or legs. Review of Systems Review of Systems: See HPI above Physical Exam Physical Exam: General: no acute distress; pleasant affect; non-toxic appearing; well- nourished; cooperative; SpO2 96% on room air HEENT: normocephalic, atraumatic; positive for scleral icterus bilaterally; PERRLA; vision and hearing grossly intact Neck: supple; no lymphadenopathy; trachea midline Skin: Jaundiced skin; warm, dry without signs of tenting; no cyanosis; no rashes, bruising, lesions, or erythema noted CV: chest wall NTP; RRR; S1/S2 normal; no murmurs/rubs/gallops; pulses intact and symmetric at radial, DP, and PT Lungs: no acute respiratory distress; symmetrical chest wall expansion; diminished breath sounds across all lung dhaliwal w/o adventitious sounds; no wheezing ABD: Soft, NTP; BS present; no rebound/guarding; no distention MSK: no tics or fasciculations; no edema noted in the LEs b/l, nonerythematous Neuro: A&Ox3; normal mood and affect; fluent speech; no focal deficits; sensation grossly intact in the LEs b/l Results & Data Results & Data Vital Signs (Past 12 Hours) Vital Signs Temp Pulse Resp BP Pulse Ox O2 Del Method 06/30/24 08:00 36.4 C L 79 18 170/85 H 98 Room Air 06/30/24 07:03 81 16 96 Room Air PG Care Time/CCT Total # of Minutes Spent Total Time Spent with Patient: Total time spent is greater than 50% in coordination of care (as documented) at patient's floor/unit and/or counseling patient: Coding [place] [address] SUB INP/OBS CARE 2/35MIN Patient Type Established History Comprehensive Exam Comprehensive Medical Decision Making Moderate Complexity Diagnoses Transaminitis R74.01 Jaundice R17 Type 2 diabetes mellitus E11.9 Small cell carcinoma of lower lobe of right lung C34.90 Laterality: unspecified laterality Lung location: unspecified part of lung Metastatic cancer to brain C79.31 (4) Small cell lung cancer Laterality: unspecified laterality Lung location: unspecified part of lung Qualified Code(s): C34.90 - Malignant neoplasm of unspecified part of unspecified bronchus or lung"
--- NOTE | 2024-06-30 13:54 | Pharmacy Report ---
Pharmacy Glycemic Short Note 2 - Date of Service June 30, 2024 - Glycemic Short BSG Results (Last 24 hours): 06/29/24 06/29/24 06/29/24 16:42 20:17 20:18 Glucose POC Glucose 166 H 370 H* 219 H 06/29/24 06/29/24 06/30/24 20:22 23:31 04:17 Glucose POC Glucose 227 H 148 H 163 H 06/30/24 06/30/24 06/30/24 05:35 07:22 11:47 Glucose 117 H POC Glucose 128 H 145 H OUTPATIENT ANTIDIABETIC REGIMEN: * Glargine 10 units SC HS * Aspart TID with meals * Empagliflozin 10 mg PO MoWeFr A1c = 10.7% (06/20/24) ASSESSMENT: 06/30: * Stuart continues on methylprednisolone 1g IV daily (today is day 2 of 3). 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 Munoz due to abnormal outpatient labs and admission for MRCP, IVIG and high dose steroids. He received dexamethasone 10 mg IV x 1 in ED and is ordered methylprednisolone 1g IV daily. BSG of 156 mg/dL. Anticipate steroid induced hyperglycemia. * Start weight based + stress 3 Novolog. Basal insulin order to be determined once additional BSG data is available. PLAN FOR INPATIENT GLYCEMIC CONTROL: * Hold outpatient oral diabetes medications * Basal insulin * Lantus 16 units SC qHS * Ordered for 06/30 & 07/01 while patient on high dose IV steroid * Bolus insulin * NovoLog per scale ACHS or Q6hrs while NPO * Goal Range: Low 110 mg/dL - High 140 mg/dL * Correction Factor: 15 mg/dL/unit * Nutritional / Prandial insulin per carb ratio of 1 unit per 5 grams CHO consumed
[2024-06-30] MEDS: POTASSIUM CHLORIDE CRTAB 20 MEQ TABCR PO STA (14:53)
[2024-06-30] MEDS: LANTUS PER UNIT CHARGE SC SCH (21:37)
[2024-07-01 07:10] LABS: Albumin Globulin Ratio 0.5 (0.9-2); Albumin Level 2.4 gm/dl (3.4-5.0); BUN Creatinine Ratio 22.2 (10-20); Bilirubin,Total 11.4 mg/dl (0.2-1.0); Creatinine Clr Calc Pharmacy 95.8 ml/min; Globulin 4.6 gm/dl (2.5-4.0); Potassium 3.5 mmol/L (3.5-5.1)
[2024-07-01 07:22] LABS: Hematocrit (blood only) 30.9 % (42.0-52.0); Hemoglobin 10.5 g/dl (14.0-18.0); INR 1.2 (0.9-1.1); Mean Corpuscular Hemoglobin 30.3 pg (25.0-34.0); Nucleated RBC # (auto) 0.02 K/uL (0.00-0.12); Nucleated RBC % (auto) 0.2 %; Platelet Count 72 K/uL (130-400); RDW Coefficient of Variation 25.2 % (11.5-14.5); RDW Standard Deviation 79.1 fL (36.4-46.3); Red Blood Count 3.47 M/uL (4.70-6.10); White Blood Count 12.49 K/ul (4.8-10.8)
[2024-07-01 07:23] LABS: Anisocytosis Present; Basophils # (auto) 0.04 K/uL (0.00-0.20); Basophils % (auto) 0.3 %; Eosinophils # (auto) 0.09 K/uL (0.00-0.50); Eosinophils % (auto) 0.7 %; Immature Granulocytes # (auto) 0.95 K/uL (0.01-0.20); Immature Granulocytes % (auto) 7.6 %; Lymphocytes # (auto) 0.24 K/uL (1.20-3.40); Lymphocytes % (auto) 1.9 %; Monocytes # (auto) 0.67 K/uL (0.11-0.59); Monocytes % (auto) 5.4 %; Neutrophils % (auto) 84.1 %; Polychromasia 2+; Target Cells 2+; Tear Drop Cells 1+; Toxic Vacuolation 1+
[2024-07-01] MEDS: KETOROLAC TROMETHAMINE 15 MG/ML VIAL IV PRN (07:23)
--- NOTE | 2024-07-01 08:22 | Oncology Consultation ---
Date of Consultation July 01, 2024 History of Present Illness Attending Physician: Salvatore Cramer MD Allergies Allergy/AdvReac Type Severity Reaction Status Date / Time oxycodone AdvReac Intermediate Syncope Verified 06/11/24 14:19 tramadol AdvReac Intermediate Dizziness Verified 06/11/24 14:19 betamethasone AdvReac Mild Lower Verified 06/11/24 14:19 extremity numbness/pain Home Medications Medication Instructions Recorded Confirmed Type ascorbate calcium (vitamin C) 500 500 mg PO QAM 10/10/23 06/29/24 History mg tablet gabapentin 600 mg tablet 1,200 mg PO HS 10/10/23 06/29/24 History gabapentin 600 mg tablet 600 mg PO QAM 10/10/23 06/29/24 History empagliflozin 10 mg tablet 10 mg PO 3XWK 01/30/24 06/29/24 History (Jardiance) lorazepam 1 mg tablet 1 mg PO DAILY PRN anxiety #2 tabs 04/02/24 06/29/24 Rx ergocalciferol (vitamin D2) 1,250 50,000 unit PO Q7D 04/24/24 06/29/24 History mcg (50,000 unit) capsule (Vitamin D2) albuterol sulfate 90 mcg/actuation 2 inh inhalation Q6H PRN shortness 05/06/24 06/29/24 Rx aerosol inhaler of breath or wheezing #8.5 grams lisinopril 2.5 mg tablet 2.5 mg PO QAM 05/13/24 06/29/24 History budesonide 0.25 mg/2 mL suspension 0.25 mg (2 mL) NEB BIDR #120 mL 05/15/24 06/29/24 Rx for nebulization formoterol fumarate 20 mcg/2 mL 20 mcg (2 mL) NEB BIDR #120 mL 05/15/24 06/29/24 Rx solution for nebulization (Perforomist) insulin glargine 100 unit/mL (3 10 unit (0.1 mL) subcut HS #15 mL 05/15/24 06/29/24 Rx mL) subcutaneous pen pantoprazole 40 mg tablet,delayed 40 mg PO QAM #30 tabs 05/15/24 06/29/24 Rx release sodium chloride 7 % for 4 ml NEB BIDR #240 mL 05/15/24 06/29/24 Rx nebulization umeclidinium 62.5 mcg/actuation 1 inh inhalation DAILY #30 ea 05/15/24 06/29/24 Rx blister powder for inhalation memantine 10 mg tablet 10 mg PO BID #60 tabs 05/20/24 06/29/24 Rx duloxetine 30 mg capsule,delayed 30 mg PO DAILY #90 caps 06/11/24 06/29/24 Rx release (Cymbalta) pen needle, diabetic 32 gauge x #100 ea 06/11/24 06/11/24 Rx " insulin aspart U-100 100 unit/mL 1 sliding scale dose subcut TID 06/18/24 06/29/24 Rx (3 mL) subcutaneous pen (Novolog #18 mL FlexPen U-100 Insulin aspart) ondansetron 8 mg disintegrating 8 mg PO Q8H PRN Nausea 06/29/24 06/29/24 History tablet prochlorperazine maleate 10 mg 10 mg PO Q6H PRN Nausea 06/29/24 06/29/24 History tablet Patient History Medical History Hypertension History of pneumonia 09/28/23 > rx'd inhalers, abx, prednisone Spinal stenosis Hyperlipidemia Diabetes mellitus Hx of colonic polyps Mass of right lung Surgical History History of cataract surgery Left eye Hx of colonoscopy with polypectomy History of tonsillectomy History of lumbar surgery (2017) L5-S1 Family History Mother , 101 Diabetes Natural with unknown cause Father , in his 80s Stroke Myocardial infarction Diabetes Brother No problems noted. Brother No problems noted. Brother Overdose Son No problems noted. Son No problems noted. 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 How many Children do You have: 2 Other Information That Helps Us Care for You: No Feels Safe at Home: Yes Safety Concerns: Feels Safe At This Time Diet: regular caffeine: Yes (1 cup/day) during the past year weight has: remained stable Assistive Devices: Cane and Walker Results & Data Vital Signs (Past 12 Hours) Vital Signs Temp Pulse Pulse Resp BP BP Pulse Ox 07/01/24 07:42 37.1 C 104 H 20 180/95 H 96 07/01/24 07:21 36.6 C 107 H 20 171/91 H 94 07/01/24 06:56 88 16 95 06/30/24 20:56 36.5 C 94 H 16 164/74 H 93 O2 Del Method 07/01/24 07:42 Room Air 07/01/24 07:21 Room Air 07/01/24 06:56 Room Air 06/30/24 20:56 Room Air
[2024-07-01] MEDS: LORazepam 2 MG/1 ML VIAL IV PRN (13:02)
[2024-07-01] MEDS: OPTIRAY 320 100ml IV ONE (13:28)
--- NOTE | 2024-07-01 14:31 | CT Scan Report ---
CT chest diagnostic wo/w con HISTORY: 74 years-old Male SCLC, repeat imaging per [facility] Heme/Onc follow-up study in a patient with p neumonia of the right lung COMPARISON: MRCP 06/29/2024, abdominal ultrasound 06/25/2024, PET/CT 04/17/2024, chest CT 05/14/2024 TECHNIQUE: Multiple axial CT images of the chest were obtained with and without IV contrast. A dose l owering technique was used consistent with the principals of ALEXY. FINDINGS: Mild cardiomegaly. Extensive coronary artery calcifications. Atherosclerosis of the aorta without ane urysm. Unremarkable pulmonary artery. 10 mm right cardiophrenic/epicardial lymph node on image 207 se kiley 7 was previously subcentimeter in size. No additional pathologically enlarged lymph nodes identi fied. Subcentimeter right intramammary lymph node on image 127 series 7 has increased in size from pr ior. Tracheobronchial secretions. Trace pleural effusions. Irregular groundglass and consolidative opaciti es throughout the right lung have progressed from prior. Additionally, there is mild cylindrical bron chiectasis throughout the right lung, most pronounced in the right lower lobe. 7 mm subpleural solid nodule of the lateral basal segment left lower lobe on image 210 series 7 previously measured approxi mately 3 mm. Diffusely heterogeneous appearance of the liver, also seen on comparison ultrasound, new from the 04/21 CT exam. The liver has also increased in size from that study. Trace perihepatic ascites. 3.3 cm left adrenal mass previously measured 2 cm. No acute fracture or destructive bone lesion. IMPRESSION: 1. Trace pleural effusions with tracheobronchial secretions. 2. Irregular opacities throughout the right lung have progressed from the 05/14/2024 study and there i s also mild asymmetric right-sided bronchiectasis. Findings are likely infectious or inflammatory, po ssibly with an underlying component of fibrosis. Follow-up recommended. 3. 7 mm subpleural solid nodule within the basal left lower lobe has increased in size from prior. At tention on follow-up recommended. 4. There are numerous subcentimeter lymph nodes throughout the chest and upper abdomen which have pro gressed from prior with borderline enlarged pathologic right cardiophrenic/epicardial lymph nodes. 5. Enlarged heterogeneous liver containing numerous ill-defined lesions, better seen on the compariso n MRCP study and recent abdominal ultrasound. Tissue sampling recommended. 6. Progressive left adrenal metastasis. ACT 112: Negative or not required by law. The above report was generated using voice recognition software. It may contain grammatical, syntax o r spelling errors. Electronically signed by: Edy Shell M.D. 07/01/2024 2:29 PM
--- NOTE | 2024-07-01 15:39 | Hospitalist Progress Note ---
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 Munoz. Tbili increased to 13 with Direct bili of 8. Admitted for MRCP, IVIG and high dose steroids. #Transaminitis | Jaundice | Immunotherapy reaction Initially suspected to be due to immunotherapy and was started on methylprednisolone 1 g daily x 3 days and IVIG x 2 days No improvement, LFTs slightly uptrending. Direct bili on admit 8 MRCP with abnormal liver, macronodular appearance suspected due to metastatic disease. No CBD dilation Reviewed by radiology/oncology/GI. Suspect obstructive pattern of transaminitis is due to diffuse hepatic metastatic disease, no areas amenable to stenting Hematology oncology following, patient is following both locally and with [facility] for potential treatment options. He is not interested in palliative consultation and would like to pursue aggressive treatment available to him at this time Steroids discontinued Tylenol deferred due to transaminitis. Defer NSAIDs due to thrombocytopenia. Continued on low-dose oral morphine. Has had some lightheadedness/dizziness with tramadol and oxycodone in the past. Monitor closely for adverse effects. Will use low-dose 7.5 mg trial for now Data and imaging quested on consultation with heme/unk, MRIbrain with and without, CTchest with and without ordered #Hypokalemia Mild, improved with repletion Trend BMP, replete as needed #T2DM Home meds: Jardiance held Basal bolus while admitted With associated neuropathy - continue gabapentin pharmacy glycemic consult with high dose steroids #Lung CA Continue nebs/inhalers #HTN - continue lisinopril #Mental health - continue duloxetine, prn ativan Dispo: admit to med/surg DVT proh: SCDs with plts < 50 CODE STATUS: DNR/DNI Admission and Anticipated Discharge Date Admission Date: June 29, 2024 Subjective Seen at the bedside with hematology oncology. Some abdominal discomfort today, improved after pain medications Feels tired Disheartened to hear that he has metastatic cancer to his liver. Did discuss treatment options with patient and with oncology at bedside. Did offer potential palliative care consultation, he reports he is not interested in palliative care, does want to continue to pursue aggressive treatment. "I am going to fight this shit" Physical Exam Physical Exam: General: A&Ox3. NAD. Cooperative. HEENT: Atraumatic, normocephalic. Pulm: Symmetrical chest rise. No increased work of breathing. No respiratory distress. Cardiac: RRR, -mrg. Abdominal: Mildly tender in RUQ/LUQ without rebound/guarding/rigidity. Results & Data Results & Data Vital Signs (Past 12 Hours) Vital Signs Temp Pulse Pulse Resp BP BP Pulse Ox 07/01/24 12:32 36.5 C 115 H 18 156/75 H 94 07/01/24 12:20 36.5 C 69 17 149/90 H 95 07/01/24 07:42 37.1 C 104 H 20 180/95 H 96 07/01/24 07:21 36.6 C 107 H 20 171/91 H 94 07/01/24 06:56 88 16 95 O2 Del Method 07/01/24 12:32 Room Air 07/01/24 12:20 Room Air 07/01/24 07:42 Room Air 07/01/24 07:21 Room Air 07/01/24 06:56 Room Air PG Care Time/CCT Total # of Minutes Spent Total Time Spent with Patient: Total time spent is greater than 50% in coordination of care (as documented) at patient's floor/unit and/or counseling patient: Coding Level of Care Code 26483 SUB INP/OBS CARE 3/50MIN Diagnoses Transaminitis R74.01 Jaundice R17 Type 2 diabetes mellitus E11.9 Small cell carcinoma of lower lobe of right lung C34.90 Laterality: unspecified laterality Lung location: unspecified part of lung Metastatic cancer to brain C79.31 (4) Small cell lung cancer Laterality: unspecified laterality Lung location: unspecified part of lung Qualified Code(s): C34.90 - Malignant neoplasm of unspecified part of unspecified bronchus or lung
[2024-07-01] MEDS: LORazepam 2 MG/1 ML VIAL IV STA (17:45)
[2024-07-01] MEDS: GADOBUTROL 65ML VIAL IV ONE (18:22)
--- NOTE | 2024-07-01 20:23 | Magnetic Resonance Report ---
EXAM: MR brain wo/w con CLINICAL HISTORY: Mets SCLC, repeat imaging per onc TECHNIQUE: MRI of the brain was performed with and without intravenous contrast administration. 9mL Gadavist intravenous contrast was administered. Sequences obtained include pre-contrast and post-contrast T1-weighted, T2-weighted, FLAIR (Fluid-Attenuated Inversion Recovery), DWI (Diffusion-Weighted Imaging), and ADC (Apparent Diffusion Coefficient) sequences. COMPARISON: 04/14/2024. FINDINGS: Brain Parenchyma: Internal regression of the previously noted bilateral cerebral and cerebellar marginally enhancing intra-axial space-occupying lesions currently seen measuring up to 1.9 x 1.5 cm (compared to 2.3 to 2 cm in the last scan). Blooming artifacts are seen in the lesions, may denote blood by-products or calcifications. Marked interval regression of the surrounding brain edema. No midline shift. No evidence of acute infarction or hemorrhage. Ventricles and Sulci: Capacious both lateral ventricles. Accentuated cortical sulci and extra-axial CSF spaces Vessels: Intracranial vessels appear normal without evidence of vascular malformations or aneurysms. Skull and Calvarium: No evidence of skull vault lesions or abnormal marrow signal within the calvarium. IMPRESSION: Internal regression of the previously noted bilateral cerebral and cerebellar marginally enhancing intra-axial space-occupying lesions as well as the surrounding edema (metastatic). Electronically signed by Baron Bonds 07-01-2024 8:23 PM
[2024-07-02 06:50] LABS: Hematocrit (blood only) 33.9 % (42.0-52.0); Hemoglobin 11.1 g/dl (14.0-18.0); Mean Corpuscular Hgb Conc 32.7 g/dL (32.0-36.0); Mean Corpuscular Volume 91.6 fL (80.0-100.0); Nucleated RBC % (auto) 0.6 %; Platelet Count 80 K/uL (130-400); RDW Coefficient of Variation 25.5 % (11.5-14.5); RDW Standard Deviation 83.1 fL (36.4-46.3); White Blood Count 16.23 K/ul (4.8-10.8)
[2024-07-02 06:59] LABS: BUN Creatinine Ratio 25.8 (10-20); Calcium 8.2 mg/dl (8.6-10.3); Creatinine Clr Calc Pharmacy 87.2 ml/min; Potassium 3.9 mmol/L (3.5-5.1)
[2024-07-02 07:06] LABS: Anisocytosis Present; Basophils # (auto) 0.06 K/uL (0.00-0.20); Basophils % (auto) 0.4 %; Eosinophils # (auto) 0.05 K/uL (0.00-0.50); Eosinophils % (auto) 0.3 %; Immature Granulocytes # (auto) 1.07 K/uL (0.01-0.20); Immature Granulocytes % (auto) 6.6 %; Lymphocytes # (auto) 0.21 K/uL (1.20-3.40); Lymphocytes % (auto) 1.3 %; Monocytes % (auto) 7.4 %; Neutrophils # (auto) 13.64 K/uL (1.40-6.50); Polychromasia 1+; Target Cells 1+; Toxic Vacuolation 2+
[2024-07-02 08:21] LABS: Albumin Level 2.5 gm/dl (3.4-5.0); Bilirubin Direct 7.9 mg/dl (0-0.2); Total Protein 6.8 gm/dl (6.0-8.3)
[2024-07-02] MEDS: MoRPHine SULFATE IR 15 MG TAB (IMMEDIATE RELEASE) PO PRN (08:40)
[2024-07-02] MEDS: cefTRIAXone SODIUM 2,000 MG/50 ML BAG IV SCH (08:49)
[2024-07-02] MEDS: AZITHROMYCIN 250 MG TAB PO ONE (08:49)
[2024-07-02] MEDS ORDERED: AZITHROMYCIN 250 MG TAB PO SCH (09:00)
--- NOTE | 2024-07-02 14:12 | Hospitalist Progress Note ---
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 Munoz. Tbili increased to 13 with Direct bili of 8. Admitted for MRCP, IVIG and high dose steroids. Pending hospice Patient would like to transition to hospice following meeting with Stuart, his , Dr. Munoz, and myself at bedside. Important thing for him is to be home and out of the hospital and would like this arranged as quickly as possible. Case management aware. Working on home arrangements and getting a hospital bed to the home, hopefully arranged by 07/03. Can continue lorazepam 0.5 mg IV every 8 hours as needed for anxiety/distress Continue low-dose morphine 7.5 mg p.o. every 4 hours as needed for pain. Stuart has had reactions to various narcotics in the past however seems to tolerate thi s well. Zofran as needed for nausea #Transaminitis due to metastatic SCLC Initially suspected to be due to immunotherapy and was started on methylprednisolone 1 g daily x 3 days and IVIG x 2 days. No improvement have continued to worsen with this No improvement, LFTs slightly uptrending. Direct bili on admit 8 MRCP with abnormal liver, macronodular appearance suspected due to metastatic disease. No CBD dilation Reviewed by radiology/oncology/GI. Suspect obstructive pattern of transaminitis is due to diffuse hepatic metastatic disease, no areas amenable to stenting Hematology oncology following, patient is following both locally and with [facility] for potential treatment options. Steroids discontinued Family meeting with patient, hematology oncology, and his at bedside. On shared decision-making has decided to move to hospice. #T2DM Home meds: Jardiance held Basal bolus while admitted With associated neuropathy - continue gabapentin pharmacy glycemic consult with high dose steroids Continue glycemic control to help maximize condition and prevent decompensation as his ultimate goals are to return home. Wean and transition to hospice if desired #Lung CA Continue nebs/inhalers #HTN - continue lisinopril. May wean this on transition to hospice #Mental health - continue duloxetine, prn ativan DVT proh: SCDs CODE STATUS: DNR/DNI Admission and Anticipated Discharge Date Admission Date: June 29, 2024 Subjective Seen at the bedside with his present, and on reevaluation with hematology/oncology Uptrending transaminitis, elevated ammonia, elevated T bilirubin. Case was reviewed with [facility] oncology. Unfortunately patient is too weak to undergo alternative treatments and with aggressive spread of cancer in his liver has a very poor prognosis. Discussed with the patient and his at bedside. Stuart reports he just wants to get out of the hospital and be home. Did revisit and discuss hospice options with him and his . When asked if he was aware of what hospice was he expressed a concern that he would "just be pumped full of morphine ". Did discuss role of hospice and focusing exclusively on patient experiencing symptoms, and that pain medicine and medicine for anxiety could be given to relieve symptoms when they are experienced but are never given to sedate someone or hasten and are not given if there is no pain. If patient is experiencing pain then the goal is to provide the minimum necessary dose to treat this. Also discussed that with the transition to hospice labs and treatments which are not directly related to his symptoms are deferred. Most important things to Stuart and his are for him to be home. Prognosis on hospice given the progressive nature of his liver disease and symptoms likely days/weeks at most. If he continues to decline could be appropriate for [employer] however it is very important to Stuart that he be out of the hospital. He and his would like to moved to hospice, and goal is to obtain hospice services and home hospice bed for him to transition to as early as 07/03. No other questions at bedside. Case management consulted. Appreciate oncology care and assistance at bedside. Physical Exam Physical Exam: General: Somnolent. Awakens easily. Appears frail. Jaundice is present HEENT: Atraumatic, normocephalic. Scleral icterus is present Pulm: Symmetrical chest rise. No increase in work of breathing. No respiratory d istress. Cardiac: RRR, -mrg. Radial pulses intact and symmetrical. Abdominal: Slightly firmly distended without rebound/involuntary guarding. Mild diffuse tenderness to palpation. Results & Data Results & Data Vital Signs (Past 12 Hours) Vital Signs Temp Pulse Pulse Resp BP Pulse Ox O2 Del Method 07/02/24 08:25 Room Air 07/02/24 07:47 36.5 C 98 H 18 163/91 H 100 Nebulizer 07/02/24 07:28 96 H 15 95 Room Air O2 Flow Rate 07/02/24 08:25 07/02/24 07:47 8 07/02/24 07:28 PG Care Time/CCT Total # of Minutes Spent Total Time Spent with Patient: Total time spent is greater than 50% in coordination of care (as documented) at patient's floor/unit and/or counseling patient: Coding Level of Care Code 71709 SUB INP/OBS CARE 3/50MIN Diagnoses Transaminitis R74.01 Jaundice R17 Type 2 diabetes mellitus E11.9 Small cell carcinoma of lower lobe of right lung C34.90 Laterality: unspecified laterality Lung location: unspecified part of lung Metastatic cancer to brain C79.31 (4) Small cell lung cancer Laterality: unspecified laterality Lung location: unspecified part of lung Qualified Code(s): C34.90 - Malignant neoplasm of unspecified part of unspecified bronchus or lung
[2024-07-02 20:14] VITALS: TEMP 97.5
[2024-07-02] MEDS: INSULIN ASPART PER UNIT CHARGE SC SCH (20:23)
[2024-07-02] MEDS: LANTUS PER UNIT CHARGE SC SCH (20:23)
[2024-07-03 07:36] VITALS: BP 123/79; RESP 20
[2024-07-03] MEDS: DEXTROSE 50% 50 ML SYRINGE IV PRN (07:52)
[2024-07-03 08:28] VITALS: PULSE 112; O2SAT 93
[2024-07-03] MEDS ORDERED: AZITHROMYCIN 250 MG TAB PO SCH (09:00)
[2024-07-03] MEDS: MoRPHine SULFATE 2 MG/ML CARP IV PRN (09:20)
--- NOTE | 2024-07-03 12:31 | Discharge Summary ---
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 Munoz. Tbili increased to 13 with Direct bili of 8. Admitted for MRCP, IVIG and high dose steroids. Pending hospice Patient would like to transition to hospice following meeting with Stuart, his , Dr. Munoz, and myself at bedside. Important thing for him is to be home and out of the hospital and would like this arranged as quickly as possible. Case management aware. Working on home arrangements and getting a hospital bed to the home, hopefully arranged by 07/03. Can continue lorazepam 0.5 mg IV every 8 hours as needed for anxiety/distress Continue low-dose morphine 7.5 mg p.o. every 4 hours as needed for pain. Stuart has had reactions to various narcotics in the past however seems to tolerate this well. Zofran as needed for nausea #Transaminitis due to metastatic SCLC Initially suspected to be due to immunotherapy and was started on methylprednisolone 1 g daily x 3 days and IVIG x 2 days. No improvement have continued to worsen with this No improvement, LFTs slightly uptrending. Direct bili on admit 8 MRCP with abnormal liver, macronodular appearance suspected due to metastatic disease. No CBD dilation Reviewed by radiology/oncology/GI. Suspect obstructive pattern of transaminitis is due to diffuse hepatic metastatic disease, no areas amenable to stenting Hematology oncology following, patient is following both locally and with [facility] for potential treatment options. Steroids discontinued Family meeting with patient, hematology oncology, and his at bedside. On shared decision-making has decided to move to hospice. #T2DM Home meds: Jardiance held Basal bolus while admitted With associated neuropathy - continue gabapentin pharmacy glycemic consult with high dose steroids Continue glycemic control to help maximize condition and prevent decompensation as his ultimate goals are to return home. Wean and transition to hospice if desired #Lung CA Continue nebs/inhalers #HTN - continue lisinopril. 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 Was sent in by Dr. Munoz. Had outpatient ultrasound monday without obstruction, mild cirrhosis. Patient seen in ER C10, present at bedside. reports chronic pain all over - does not take anything at home for this. Reports not tolerating narcotics well. Worsening abdominal pain this week. Poor appetite since weaning down his steroids. Overall reports not feeling well - frustrated with memory problems, poor energy and weakness. Last onc treatment was ~ 2 months ago prior to last admissions, May treatment held off waiting information/workup from [facility] and June treatment not given due to low counts. Was given injection on Monday that he reports was to help boost his platelets. #ED course: Dexamethasone 10mg IV x1 NSS 500mL x1 Potassium 10meq IV x 1 Discharge Plan Discharge Items Patient Disposition: Hospice - Home Reason For Visit: INCREASING LFTs Discharge Diagnosis: Metastatic small cell lung cancer to brain and liver Condition on Discharge: Fair Activity: As commented below Activity Comment: Bedrest Non-emergency contact: Primary Care Provider Call non-emergency contact if: your pain is not controlled Follow-up/Referrals: Nara Amaya MD [Primary Care Provider] - Diet: Carb Consistent or DM2 Addtl Attending Provider Instructions: Home hospice will provide care. Use Roxanol liquid as directed as needed to control symptoms of pain or agitation Pending Studies at Discharge: No Stand-Alone Forms: My [employer] Medications and DC Order Prescriptions: New morphine concentrate 20 mg/mL syringe 5 mg sublingual Q3H PRN (Reason: pain) Qty: 20 0RF Discontinued Jardiance 10 mg tablet 10 mg PO [id number] Rx Instructions: Mon/Wed/Fri lorazepam 1 mg tablet 1 mg PO DAILY PRN (Reason: anxiety) Qty: 2 0RF Rx Instructions: Take 2 tabs one hour before MRI memantine 10 mg tablet 10 mg PO BID Qty: 60 5RF insulin aspart U-100 [Novolog FlexPen U-100 Insulin] 100 unit/mL (3 mL) insulin pen 1 sliding scale dose subcut TID MDD 60 units Qty: 18 3RF Rx Instructions: To inject before 3 meals based on pre meal sliding scale. Target of 150/50 gabapentin 600 mg tablet 600 mg PO QAM gabapentin 600 mg tablet 1,200 mg PO HS ascorbate calcium (vitamin C) 500 mg tablet 500 mg PO QAM Rx Instructions: UNABLE TO CONFIRM WITH PATIENT (DME) pen needle, diabetic 32 gauge x 5/32" needle See Rx Instructions .ROUTE .MEDSUPPLY Qty: 100 3RF Rx Instructions: Inject up to 4x a day with new pen needle duloxetine [Cymbalta] 30 mg capsule,delayed release(DR/EC) 30 mg PO DAILY Qty: 90 3RF Rx Instructions: Take one capsule by mouth once a day. ergocalciferol (vitamin D2) [Vitamin D2] 1,250 mcg (50,000 unit) capsule 50,000 unit PO Q7D prochlorperazine maleate 10 mg tablet 10 mg PO Q6H PRN (Reason: Nausea) ondansetron 8 mg tablet,disintegrating 8 mg PO Q8H PRN (Reason: Nausea) albuterol sulfate 90 mcg/actuation HFA aerosol inhaler 2 inh inhalation Q6H PRN (Reason: shortness of breath or wheezing) Qty: 8.5 0RF lisinopril 2.5 mg tablet 2.5 mg PO QAM formoterol fumarate [Perforomist] 20 mcg/2 mL Solution For Nebulization 20 mcg NEB BIDR Qty: 120 0RF sodium chloride 7 % Solution For Nebulization 4 ml NEB BIDR Qty: 240 0RF pantoprazole 40 mg Tablet,Delayed Release (Dr/Ec) 40 mg PO QAM Qty: 30 0RF budesonide 0.25 mg/2 mL Suspension For Nebulization 0.25 mg NEB BIDR Qty: 120 0RF insulin glargine 100 unit/mL (3 mL) insulin pen 10 unit subcut HS Qty: 15 0RF umeclidinium 62.5 mcg/actuation blister with device 1 inh inhalation DAILY Qty: 30 0RF Discharge Orders: Discharge Order (Routine); Ordered 07/03/24 Ordered By: Ezequiel Bhakta Admission Data Admit Date/Time: 06/29/24 12:23 Attending Provider: Ezequiel Bhakta Admit Provider: Salvatore Cramer Primary Care Provider: Nara Amaya Other Providers: Salvatore Cramer; [facility] Stay Data Consultations 06/29/24 11:35 ED Decision to Admit Stat Diagnostic Imagining Performed 06/29/24 12:18 MR MRCP Stat 07/01/24 12:12 CT chest diagnostic wo/w con Routine 07/01/24 15:38 MRI Brain [MR brain wo/w con] Routine Pending Results Patient Have Any Pending Studies at Discharge: No Discharge Instructions Given to Patient (Per Discharging Provider) Home hospice will provide care. Use Roxanol liquid as directed as needed to control symptoms of pain or agitation Total Time Total Time Spent Total Time Spent (In Minutes): 45 minutes Coding Level of Care Code 51074 INP/OBS DISCH >30 MIN Diagnoses Transaminitis R74.01 Jaundice R17 Type 2 diabetes mellitus E11.9 Small cell carcinoma of lower lobe of right lung C34.90 Laterality: unspecified laterality Lung location: unspecified part of lung Metastatic cancer to brain C79.31
== END 2024-07-03 14:09 | disposition hospice, home (50) | DRG 436 ==
LOC: ED 09:50 → SUATTDRO 12:23 → 3E 12:23